=== PATIENT | female | born 1940 | race African-American/Black ===

== ENCOUNTER 2016-05-26 09:37 | Emergency (ER) | payer OTHER, MEDICAID ==
[2016-05-26 09:43] VITALS: BP 150/80; BMI 24.9
[2016-05-26] MEDS ORDERED: DECADRON INJ IM ONE (10:36)
--- NOTE | 2016-05-26 10:37 | DR.GENAD ---
HPI - PCP Primary Care Physician: Jalil RESTREPO - Complaint/Symptoms Chief Complaint:: PT C/O LT KNEE PAIN AND SWELLING. PT STATES SHE HAS ALWAYS HAD PROBLEMS WITH ARTHRITIS, BUT THIS AM SHE WOKE UP AND SHE IS HAVING TROUBLE MOVING IT AND AMBULATING. - Source History Provided: Patient - Mode of Arrival Mode of Arrival: Ambulatory - Timing Onset of Chief Complaint: 05/26/16 PMH - PMH Past Medical History: Yes Past Medical History: Anemia, Anxiety, Arthritis, Depression, Dyslipidemia, GERD , Hypertension, Kidney Stones Past Surgical History: Yes Surgical History: Cholecystectomy, Lithotripsy - Family History History of Family Medical Conditions: Yes Family Medical History: Diabetes Mellitus, Hypertension - Social History Does any household member use tobacco: No Alcohol Use: None Do you use any recreational Drugs:: No Lives With: Family Lives Where: Home - infectious screening In the last 2 months have you had wt loss of >10#?: NO Have you had fever, night sweats or hemotysis?: No Have you traveled outside the country in the last 6 months?: No Isolation: Standard PE - Vital Signs Vitals: Temperature 97.8 F Pulse Rate 75 Respiratory Rate 20 Blood Pressure 150/80 O2 Sat by Pulse Oximetry 97 - General Limitations: No Limitations General Appearance: Alert, In No Apparent Distress - Head Head Exam: Normal Inspection - Eyes Eye exam: Normal Appearance, PERRL, EOMI - ENT ENT Exam: Normal Exam External Ear Exam: Normal External Inspection TM/Canal Exam: Bilateral Normal Nose Exam: Normal Nose Exam Mouth Exam: Normal Inspection Throat Exam: Normal Inspection - Neck Neck Exam: Normal Inspection - Chest Chest Inspection: Normal Inspection - Respiratory Respiratory Exam: Normal Lung Sounds Bilat Respiratory Exam: Bilateral Clear to Auscultation - Cardiovascular Cardiovascular Exam: Regular Rate, Normal Rhythm - Abdominal Exam Abdominal Exam: Normal Inspection Abdominal Tenderness: negative: RUQ, RLQ, LUQ, LLQ, Epigastrium, Suprapubic, Diffuse, Mild, Moderate, Severe, Other - Extremities Extremities Exam: Normal Inspection, Joint Swelling (left knee medially, no warmth or erythema) - Back Back Exam: Normal Inspection - Neurologic Neurological Exam: Alert, Oriented X3, CN II-XII Intact - Skin Skin Exam: Warm, Dry, Intact Course - Reevaluation 1st: Unchanged - Diagnosis Discharge Problem: Arthritis - Discharge Plan Condition: Stable - Follow ups/Referrals Follow ups/Referrals: FOUZIA RESTREPO [Primary Care Provider] - 3 days - Instructions
[2016-05-26] MEDS ORDERED: DECADRON INJ ONE (10:39)
== END 2016-05-26 11:07 | disposition home or self-care (01) ==
LOC: ER 09:37
DX: M13.862 Other specified arthritis, left knee (principal)
CPT/HCPCS: 96372; 99282; J1100

== ENCOUNTER → 2016-06-19 | Outpatient (CLI) | payer OTHER, MEDICAID ==
[2016-05-26 09:43] VITALS: BP 150/80
== END ==
LOC: LAB 10:53
PROVIDERS: ATTEND Internal Medicine Hematology & Oncology
DX: D64.89 Other specified anemias (principal)
CPT/HCPCS: 82270

== ENCOUNTER 2016-06-21 10:33 | Emergency (ER) | payer OTHER, MEDICAID ==
[2016-06-21 10:37] VITALS: BP 177/90; BMI 24.9
--- NOTE | 2016-06-21 10:46 | DR.BITE ---
HPI - Time Seen Time seen: 10:38 - PCP Primary Care Physician: Deonte RESTREPO - Complaint/Symptoms Chief Complaint Doctor Comments: Patient was bitten (scratched) by a stray cat when attempting to pick the cat up. There is no pain at site and no erythema. Chief Complaint:: PT. GOT BIT BY A STRAY CAT [employer]. ONE PUNCTURE WOUND NOTED TO LEFT THUMB. PT. UNSURE OF IMMUNIZATION STATUS OF ANIMAL OR HERSELF. - Source History Provided: Patient - Mode of Arrival Mode of Arrival: Ambulatory - Timing Onset of Chief Complaint: 06/21/16 PMH - PMH Past Medical History: Yes Past Medical History: Anemia, Anxiety, Arthritis, Depression, Dyslipidemia, GERD , Hypertension, Kidney Stones Past Surgical History: Yes Surgical History: Cholecystectomy, Lithotripsy - Family History History of Family Medical Conditions: Yes Family Medical History: Diabetes Mellitus, Hypertension - Social History Does patient currently use any type of tobacco product: No Have you used tobacco products in the last 12 months: No Type of Tobacco Use: None Does any household member use tobacco: No Alcohol Use: None Do you use any recreational Drugs:: No Lives With: Family Lives Where: Home - infectious screening In the last 2 months have you had wt loss of >10#?: NO Have you had fever, night sweats or hemotysis?: No Have you traveled outside the country in the last 6 months?: No Isolation: Standard ROS - Review of Systems Constitutional: No Symptoms Reported Eyes: No Symptoms Reported ENTM: No Symptoms Reported Respiratoy: No Symptoms Reported Cardiovascular: No Symptoms Reported Gastrointestinal/Abdominal: No Symptoms Reported Genitourinary: No Symptoms Reported Neurological: No Symptoms Reported Musculoskeletal: No Symptoms Reported Integumentary: See HPI, Lesions (right thumb puncture) Hematologic/Lymphatic: No Symptoms Reported Endocrine: No Symptoms Reported Psychiatric: No Symptoms Reported All Other Systems: Reviewed and Negative PE - Vital Signs Vital Signs: Temp Pulse Resp BP Pulse Ox 06/21/16 10:34 97.7 F 82 16 177/90 100 05/26/16 09:40 150/80 - Constitutional Limitations: No Limitations General Appearance: Alert, In No Apparent Distress - Head Head Exam: Normal Inspection - Eyes Eye exam: Normal Appearance, PERRL, EOMI - ENT ENT Exam: Normal Exam - Neck Neck Exam: Normal Inspection, Full ROM - Chest Chest Inspection: Normal Inspection - Respiratory Respiratory Exam: Normal Lung Sounds Bilat Respiratory Exam: Bilateral Clear to Auscultation - Cardiovascular Cardiovascular Exam: Regular Rate, Normal Rhythm - Abdominal Exam Abdominal Exam: Normal Inspection, Normal Bowel Sounds Abdominal Tenderness: negative: RUQ, RLQ, LUQ, LLQ, Epigastrium, Suprapubic, Diffuse, Mild, Moderate, Severe, Other - Extremities Extremities Exam: Normal Inspection - Back Back Exam: Normal Inspection - Neurologic Neurological Exam: Alert, Oriented X3, CN II-XII Intact Cranial Nerve Exam: EOM Function (II, III, IV, ): Normal Cerebellar Function: Finger to Nose: Normal Cerebellar Function: Normal Gait - Psychiatric Psychiatric Exam: Normal Affect, Normal Mood - Skin Skin Exam: Warm, Dry. negative: Intact (puncture wound of right thumb) Type of Lesion: Bite/Sting (as stated) Distribution: RUE Description: negative: Fluctuant, Indurated Involving: Immediate area of bite Through to: Skin - Diagnosis Discharge Problem: Cat bite of thumb Qualifiers: Encounter type: initial encounter Laterality: right Qualified Code(s): S61.051A - Open bite of right thumb without damage to nail, initial encounter; W55.01XA - Bitten by cat, initial encounter - Discharge Plan Condition: Stable - Follow ups/Referrals Follow ups/Referrals: FOUZIA RESTREPO [Primary Care Provider] - 3 days - Instructions
[2016-06-21] MEDS ORDERED: HYDROGEN PEROXIDE 3% ONE (10:54)
== END 2016-06-21 11:00 | disposition home or self-care (01) ==
LOC: ER 10:39
DX: S61.051A Open bite of right thumb without damage to nail, initial encounter (principal); W55.01XA Bitten by cat, initial encounter
CPT/HCPCS: 99281; 99282

== ENCOUNTER → 2016-06-28 | Outpatient (CLI) | payer OTHER, MEDICAID ==
[2016-06-21 10:37] VITALS: BP 177/90
--- NOTE | 2016-06-29 09:42 | MG ---
HISTORY: SCREENING Comparison: March 19, 2014 and May 17, 2015 FINDINGS: Bilateral CC and MLO projections of the right and left breast were obtained. Scattered fibroglandul ar tissue is seen to be present without significant interval change. No suspicious architectural di stortion, mass or clustered microcalcifications can be observed to suggest malignancy. No skin thic kening or nipple retraction is appreciated. No pathological lymphadenopathy can be identified. Darren ign-appearing calcifications are noted within the right and left breast. IMPRESSION: NO RADIOGRAPHIC EVIDENCE OF MALIGNANCY. ACR CATEGORY 2 - benign findings. FOLLOW-UP EXAM 1 YEAR. Diagnostic CAD was utilized and reviewed. * 0 (ZERO) - ASSESSMENT INCOMPLETE; ADDITIONAL IMAGING IS NEEDED. * 1/1 (ONE) - NEGATIVE. * 2/II (TWO) - BENIGN FINDINGS. * 3/III (THREE) - PROBABLY BENIGN FINDING; SHORT INTERVAL FOLLOW-UP SUGGESTED. * 4/IV (FOUR) - SUSPICIOUS ABNORMALITY; BIOPSY SHOULD BE CONSIDERED. * 5/V (FIVE) - HIGHLY SUSPICIOUS OF MALIGNANCY; BIOPSY SHOULD BE PERFORMED. A NEGATIVE X-RAY REPORT SHOULD NOT DELAY BIOPSY IF A DOMINANT OR CLINICALLY SUSPICIOUS MASS IS PRESENT; 4 TO 8 PERCENT OF CANCERS ARE NOT IDENTIFIED BY X-RAY. A NEG ATIVE REPORT MAY REINFORCE THE CLINICAL IMPRESSION. ADENOSIS AND DENSE BREASTS MAY OBSCURE AN UNDER LYING NEOPLASM. Reported By:
== END ==
LOC: RAD 14:00
PROVIDERS: ATTEND Nurse Practitioner Family
DX: Z00.00 Encounter for general adult medical examination without abnormal findings (principal); Z12.31 Encounter for screening mammogram for malignant neoplasm of breast
CPT/HCPCS: 77067

== ENCOUNTER → 2016-10-10 | Outpatient (CLI) | payer OTHER, MEDICAID ==
[2016-10-10 11:47] LABS: BASOPHILS % (AUTO) 1.1 % (0.2-1.0); EOSINOPHILS # (AUTO) 0.2 x10^3/uL (0.0-0.2); EOSINOPHILS % (AUTO) 5.6 % (0.9-2.9); HEMATOCRIT 34.4 % (36.0-47.0); HEMOGLOBIN 11.1 g/dL (12.0-16.0); LYMPHOCYTES # (AUTO) 0.9 X10^3/uL (1.3-2.9); LYMPHOCYTES % (AUTO) 28.7 % (21.0-51.0); MEAN CORPUSCULAR HEMOGLOBIN 26.3 pg (27.0-34.0); MEAN CORPUSCULAR HGB CONC 32.1 g/dL (33.0-35.0); MEAN CORPUSCULAR VOLUME 81.8 fL (80.0-100.0); MEAN PLATELET VOLUME 8.1 fL (7.4-11.0); MONOCYTES # (AUTO) 0.2 x10^3/uL (0.3-0.8); MONOCYTES % (AUTO) 5.2 % (0.0-13.0); NEUTROPHILS # (AUTO) 1.9 x10^3/uL (2.2-4.8); NEUTROPHILS % (AUTO) 59.4 % (42.0-75.0); PLATELET COUNT 120 X10^3/uL (150.0-450.0); RED BLOOD COUNT 4.21 X10^6/uL (3.5-5.4); RED CELL DISTRIBUTION WIDTH 14.6 % (11.6-16.5); RETICULOCYTE % 1.09 % (0.8-2.2); WHITE BLOOD COUNT 3.2 X10^3/uL (3.6-10.0)
[2016-10-10 11:58] LABS: ALANINE AMINOTRANSFERASE 24 Units/L (12-78); ALBUMIN 3.9 g/dL (3.4-5.0); ALKALINE PHOSPHATASE 50 Units/L (46-116); ASPARTATE AMINO TRANSFERASE 24 Units/L (15-37); BLOOD UREA NITROGEN 17 mg/dL (7-18); CALCIUM 8.3 mg/dL (8.5-10.1); CARBON DIOXIDE 30.6 mmol/L (21-32); CHLORIDE 107 mmol/L (98-107); CREATININE 1.06 mg/dL (0.55-1.02); GLUCOSE 88 mg/dL (65-99); LACTATE DEHYDROGENASE 219 Units/L (81-234); SODIUM 143 mmol/L (136-145); eGFR BLACK RACES > 60 (>60); eGFR NON BLACK RACES 54 (>60)
== END | disposition home or self-care (01) | DRG 812 ==
LOC: LAB 11:02
PROVIDERS: ATTEND Internal Medicine Hematology & Oncology
DX: D64.89 Other specified anemias (principal); D69.49 Other primary thrombocytopenia
CPT/HCPCS: 36415; 80053; 83010; 83615; 85025; 85045

== ENCOUNTER → 2016-10-25 | Outpatient (CLI) | payer OTHER, MEDICAID ==
[2016-10-25 10:41] LABS: CHOL/HDL RATIO 2.6 (0.0-5.0); CHOLESTEROL 162 mg/dL (0-200); HDL CHOLESTEROL 63 mg/dL (40-60); TRIGLYCERIDES 87 mg/dL (0-150)
--- NOTE | 2016-10-25 10:42 | RAD ---
HISTORY: Low back pain Study: Lumbar spine five views Comparison: None Findings: There is mild anterolisthesis L3 on L4 secondary to facet degenerative joint disease and degenerativ e disc disease at that level. Degenerative disc disease and facet degenerative joint disease is pres ent also at L4-5. The alignment is otherwise normal. The vertebral bodies are of average height. The remainder the disc spaces are preserved. No spondylolysis is identified. The pedicles are intact. T he SI joints are normal. IMPRESSION: Mild anterolisthesis L3 on L4 secondary to degenerative disc and facet degenerative joint disease at that level. Degenerative disc disease also present at L4-5 Facet degenerative joint disease L4-5, L5-S1 bilaterally. Reported By:
--- NOTE | 2016-10-25 10:43 | RAD ---
HISTORY: Bilateral hip pain, nontraumatic Study: Bilateral hips two views each, AP pelvis Comparison: October 30, 2015 Findings: The pelvic bones and SI joints are intact. There is mild osteitis pubis present. The hip joints are preserved. There is mild degenerative joint space narrowing in the hips bilaterally. No joint erosio n, joint effusion, fracture, lytic, or blastic lesion is identified. IMPRESSION: Mild degenerative joint space narrowing in the hips bilaterally Reported By:
== END ==
LOC: LAB 09:58
PROVIDERS: ATTEND Nurse Practitioner Family
DX: M06.09 Rheumatoid arthritis without rheumatoid factor, multiple sites (principal); E78.4 Other hyperlipidemia; I48.91 Unspecified atrial fibrillation; M81.0 Age-related osteoporosis without current pathological fracture; M54.5 Low back pain; M25.551 Pain in right hip; M25.552 Pain in left hip
CPT/HCPCS: 36415; 72110; 73521; 80061; 82306; 82746; 85610; 85652; 86140

== ENCOUNTER 2016-11-01 10:35 | Emergency (ER) | payer MEDICAID, OTHER ==
--- NOTE | 2016-11-01 13:27 | RAD ---
HISTORY: Cough Study: AP portable chest Comparison: May 01, 2015 Findings: The trachea is midline. The cardiac silhouette is enlarged. No congestive heart failure is noted.. The lungs are clear without focal infiltrate or effusion. The bony thorax is unremarkable with the e xception of chronic rotator cuff disease on the right.. There is a pacemaker present on the left obs curing a portion of the left upper lobe. IMPRESSION: 1. Cardiomegaly without congestive heart failure 2. Lungs clear Reported By:
--- NOTE | 2016-11-01 13:40 | DR.GENAD ---
HPI - HPI Comment HPI Comment: HISTORY BELOW. - Complaint/Symptoms Chief Complaint Doctors Comments: PATIENT HAVING SINUS AND CHEST CONGESTION THAT IS WORSE. PATIENT HAVE PERSISTENT FOR OVER ONE MONTH. WORSE TODAY. Chief Complaint:: BODY ACHES, COLD AND CONGESTION. ALSO COUGHING. - Nurses notes reviewed Nurses Notes Review: Yes - Source History Provided: Patient - Mode of Arrival Mode of Arrival: Ambulatory - Timing Came on: Gradually - Duration Duration: Constant Duration: Days - Severity Severity: Moderate PMH - PMH Past Medical History: Anemia, Anxiety, Arthritis, Depression, Dyslipidemia, GERD , Hypertension, Kidney Stones Past Surgical History: Yes Surgical History: Cholecystectomy, Lithotripsy - Family History Family Medical History: Diabetes Mellitus, Hypertension - Social History Do you use any recreational Drugs:: No ROS - Review of Systems Constitutional: Weakness, Fatigue. negative: Chills, Fever Eyes: No Symptoms Reported. negative: Eye Pain, Discharge ENTM: Nose Congestion. negative: Ear Discharge, Nose Discharge, Throat Pain Respiratoy: Non-Productive Cough, Short of Breath. negative: Wheezing Cardiovascular: Chest Pain Gastrointestinal/Abdominal: No Symptoms Reported Genitourinary: No Symptoms Reported Neurological: Headache. negative: Weakness, Dizziness Musculoskeletal: Muscle Pain Integumentary: No Symptoms Reported Hematologic/Lymphatic: No Symptoms Reported Endocrine: No Symptoms Reported All Other Systems: Reviewed and Negative PE - Vital Signs Vitals: Temperature 98.1 F Pulse Rate 84 Respiratory Rate 20 Blood Pressure 172/86 O2 Sat by Pulse Oximetry 100 - General Limitations: No Limitations General Appearance: Alert - Head Head Exam: Normal Inspection - Eyes Eye exam: Normal Appearance - ENT ENT Exam: Normal External Ear Exam External Ear Exam: Normal External Inspection TM/Canal Exam: Bilateral Bulging Nose Exam: Normal Nose Exam Mouth Exam: Normal Inspection Throat Exam: Normal Inspection - Neck Neck Exam: Normal Inspection - Chest Chest Inspection: Symmetric Chest Wall Rise - Respiratory Respiratory Exam: Normal Lung Sounds Bilat Respiratory Exam: Bilateral Rhonchi, Lower Rhonchi - Cardiovascular Cardiovascular Exam: Regular Rate, Normal Rhythm, Normal Heart Sounds - Abdominal Exam Abdominal Exam: Normal Bowel Sounds, Soft. negative: Tenderness - Extremities Extremities Exam: Normal Inspection - Back Back Exam: Normal Inspection - Neurologic Neurological Exam: Alert, Oriented X3 - Psychiatric Psychiatric Exam: Normal Affect, Normal Mood - Skin Skin Exam: Normal Color MDM - Additional Information Additional Information Obtained From: Family - Differential Diagnosis Differential Diagnosis: PNEUMONIA, SINUSITIS, BRONCHITIS Course - Treatment Treatment: SEE ORDERS. - Education/Counseling Education/Counseling: Patient, Family, Education Educated On: Treatment, Diagnosis, Needs for Follow Up ROR - Labs Reviewed Laboratory Results Reviewed?: Yes Result Diagrams: 11/01/16 12:50 11/01/16 12:50 Laboratory: WBC 3.8 X10^3/uL (3.6-10.0) 11/01/16 12:50 RBC 4.14 X10^6/uL (3.5-5.4) 11/01/16 12:50 Hgb 10.9 g/dL (12.0-16.0) L 11/01/16 12:50 Hct 33.6 % (36.0-47.0) L 11/01/16 12:50 MCV 81.2 fL (80.0-100.0) 11/01/16 12:50 MCH 26.3 pg (27.0-34.0) L 11/01/16 12:50 MCHC 32.4 g/dL (33.0-35.0) L 11/01/16 12:50 RDW 14.8 % (11.6-16.5) 11/01/16 12:50 Plt Count 114 X10^3/uL (150.0-450.0) L 11/01/16 12:50 MPV 7.7 fL (7.4-11.0) 11/01/16 12:50 Neut % 62.8 % (42.0-75.0) 11/01/16 12:50 Lymph % 24.0 % (21.0-51.0) 11/01/16 12:50 Coal % 6.2 % (0.0-13.0) 11/01/16 12:50 Eos % 6.3 % (0.9-2.9) H 11/01/16 12:50 Baso % 0.7 % (0.2-1.0) 11/01/16 12:50 Neut # 2.4 x10^3/uL (2.2-4.8) 11/01/16 12:50 Lymph # 0.9 X10^3/uL (1.3-2.9) L 11/01/16 12:50 Coal # 0.2 x10^3/uL (0.3-0.8) L 11/01/16 12:50 Eos # 0.2 x10^3/uL (0.0-0.2) 11/01/16 12:50 Baso # 0.0 X10^3/uL (0.0-0.1) 11/01/16 12:50 Absolute Nucleated RBC 0.0 /100WBC 11/01/16 12:50 Sodium 143 mmol/L (136-145) 11/01/16 12:50 Corrected Sodium TNP 11/01/16 12:50 Potassium 3.8 mmol/L (3.5-5.1) 11/01/16 12:50 Chloride 107 mmol/L (98-107) 11/01/16 12:50 Carbon Dioxide 32.2 mmol/L (21-32) H 11/01/16 12:50 BUN 84 mg/dL (7-18) H 11/01/16 12:50 Creatinine 1.03 mg/dL (0.55-1.02) H 11/01/16 12:50 Est GFR (MDRD) Af Amer > 60 (>60) 11/01/16 12:50 Est GFR (MDRD) Non-Af 55 (>60) L 11/01/16 12:50 Glucose 84 mg/dL (65-99) 11/01/16 12:50 Calcium 8.7 mg/dL (8.5-10.1) 11/01/16 12:50 Corrected Calcium TNP 11/01/16 12:50 Total Bilirubin 0.60 mg/dL (0.2-1.0) 11/01/16 12:50 AST 23 Units/L (15-37) 11/01/16 12:50 ALT 24 Units/L (12-78) 11/01/16 12:50 Alkaline Phosphatase 46 Units/L (46-116) 11/01/16 12:50 Creatine Kinase 116 Units/L (26-192) 11/01/16 12:50 CK-MB (CK-2) < 1.0 ng/mL (0-4.0) 11/01/16 12:50 CK/CKMB % Calc 0.9 % (<4) 11/01/16 12:50 Troponin I < 0.02 ng/mL (0-1.5) 11/01/16 12:50 Total Protein 7.4 g/dL (6.4-8.2) 11/01/16 12:50 Albumin 3.5 g/dL (3.4-5.0) 11/01/16 12:50 Globulin 3.9 g/dL (2.5-4.5) 11/01/16 12:50 Albumin/Globulin Ratio 0.9 Ratio (1.1-2.1) L 11/01/16 12:50 - XRAY XRAY Interpreted by: Radiologist XRAY Findings: REPORT DISCUSS WITH PATIENT. - Diagnosis Discharge Problem: Acute sinusitis, Acute bronchitis - Discharge Plan Disposition: HOME, SELF-CARE Condition: Stable Prescriptions: Amoxicillin & Pot Clavulanate [AUGMENTIN TAB 875 mg/125 mg *] 1 tab PO BID #20 tab Benzonatate [TESSALON PERLES *] 200 mg PO TID PRN #30 cap PRN Reason: Cough Cetirizine HCl [Zyrtec Tab 10 mg] 10 mg PO DAILY #10 tab - Follow ups/Referrals Follow ups/Referrals: Yas Ahuja [Primary Care Provider] - 3 days - Instructions Instructions: Sinusitis, Adult, [id number], Acute Bronchitis, [id number] Additional Instructions: RETURN TO ED IF WORSE.
[2016-11-01 13:50] VITALS: BP 172/86; BMI 26.0
[2016-11-01 14:09] LABS: CKMB % 0.9 % (<4); CREATINE KINASE 116 Units/L (26-192); CREATINE KINASE MB < 1.0 ng/mL (0-4.0); TROPONIN I < 0.02 ng/mL (0-1.5)
[2016-11-01 14:32] LABS: BLOOD UREA NITROGEN 84 mg/dL (7-18); CALCIUM 8.7 mg/dL (8.5-10.1); CARBON DIOXIDE 32.2 mmol/L (21-32); CHLORIDE 107 mmol/L (98-107); CREATININE 1.03 mg/dL (0.55-1.02); GLUCOSE 84 mg/dL (65-99); SODIUM 143 mmol/L (136-145); eGFR BLACK RACES > 60 (>60); eGFR NON BLACK RACES 55 (>60)
[2016-11-01 14:33] LABS: ALANINE AMINOTRANSFERASE 24 Units/L (12-78); ALBUMIN 3.5 g/dL (3.4-5.0); ALKALINE PHOSPHATASE 46 Units/L (46-116); ASPARTATE AMINO TRANSFERASE 23 Units/L (15-37); TOTAL PROTEIN 7.4 g/dL (6.4-8.2)
[2016-11-01 14:34] LABS: HEMATOCRIT 33.6 % (36.0-47.0); HEMOGLOBIN 10.9 g/dL (12.0-16.0); MEAN CORPUSCULAR VOLUME 81.2 fL (80.0-100.0); RED BLOOD COUNT 4.14 X10^6/uL (3.5-5.4); WHITE BLOOD COUNT 3.8 X10^3/uL (3.6-10.0)
[2016-11-01 14:35] LABS: BASOPHILS % (AUTO) 0.7 % (0.2-1.0); EOSINOPHILS # (AUTO) 0.2 x10^3/uL (0.0-0.2); EOSINOPHILS % (AUTO) 6.3 % (0.9-2.9); LYMPHOCYTES # (AUTO) 0.9 X10^3/uL (1.3-2.9); MEAN CORPUSCULAR HEMOGLOBIN 26.3 pg (27.0-34.0); MEAN CORPUSCULAR HGB CONC 32.4 g/dL (33.0-35.0); MEAN PLATELET VOLUME 7.7 fL (7.4-11.0); MONOCYTES # (AUTO) 0.2 x10^3/uL (0.3-0.8); MONOCYTES % (AUTO) 6.2 % (0.0-13.0); NEUTROPHILS # (AUTO) 2.4 x10^3/uL (2.2-4.8); NEUTROPHILS % (AUTO) 62.8 % (42.0-75.0); PLATELET COUNT 114 X10^3/uL (150.0-450.0); RED CELL DISTRIBUTION WIDTH 14.8 % (11.6-16.5)
== END 2016-11-01 14:00 | disposition home or self-care (01) ==
LOC: ER 10:48
DX: J20.9 Acute bronchitis, unspecified (principal); J01.80 Other acute sinusitis
CPT/HCPCS: 36415; 71010; 80053; 82550; 82553; 84484; 85025; 99282; 99283

== ENCOUNTER → 2017-01-10 | Outpatient (CLI) | payer OTHER, MEDICAID ==
[2017-01-10 11:07] LABS: BASOPHILS % (AUTO) 1.1 % (0.2-1.0); EOSINOPHILS # (AUTO) 0.3 x10^3/uL (0.0-0.2); EOSINOPHILS % (AUTO) 8.6 % (0.9-2.9); HEMATOCRIT 33.8 % (36.0-47.0); HEMOGLOBIN 10.9 g/dL (12.0-16.0); MEAN CORPUSCULAR HEMOGLOBIN 26.4 pg (27.0-34.0); MEAN CORPUSCULAR HGB CONC 32.2 g/dL (33.0-35.0); MEAN CORPUSCULAR VOLUME 81.8 fL (80.0-100.0); MEAN PLATELET VOLUME 7.9 fL (7.4-11.0); MONOCYTES # (AUTO) 0.2 x10^3/uL (0.3-0.8); MONOCYTES % (AUTO) 5.5 % (0.0-13.0); NEUTROPHILS # (AUTO) 1.9 x10^3/uL (2.2-4.8); NEUTROPHILS % (AUTO) 56.8 % (42.0-75.0); PLATELET COUNT 126 X10^3/uL (150.0-450.0); RED BLOOD COUNT 4.13 X10^6/uL (3.5-5.4); RED CELL DISTRIBUTION WIDTH 14.7 % (11.6-16.5); WHITE BLOOD COUNT 3.4 X10^3/uL (3.6-10.0)
[2017-01-10 11:09] LABS: ALANINE AMINOTRANSFERASE 19 Units/L (12-78); ALBUMIN 3.8 g/dL (3.4-5.0); ALKALINE PHOSPHATASE 50 Units/L (46-116); ASPARTATE AMINO TRANSFERASE 23 Units/L (15-37); BLOOD UREA NITROGEN 19 mg/dL (7-18); CARBON DIOXIDE 29.8 mmol/L (21-32); CHLORIDE 105 mmol/L (98-107); CREATININE 1.26 mg/dL (0.55-1.02); SODIUM 140 mmol/L (136-145); TOTAL PROTEIN 7.6 g/dL (6.4-8.2); eGFR BLACK RACES 53 (>60); eGFR NON BLACK RACES 44 (>60)
[2017-01-10 11:52] LABS: ERYTHROCYTE SEDIMENTATION RATE 21 MM/HOUR (0-20)
== END ==
LOC: LAB 10:22
PROVIDERS: ATTEND Nurse Practitioner Family
DX: M06.09 Rheumatoid arthritis without rheumatoid factor, multiple sites (principal); Z79.899 Other long term (current) drug therapy; E55.9 Vitamin D deficiency, unspecified; Z79.01 Long term (current) use of anticoagulants
CPT/HCPCS: 36415; 80053; 82306; 82746; 85025; 85610; 85652; 86140

== ENCOUNTER 2017-01-21 18:38 | Emergency (ER) | payer OTHER, MEDICAID ==
[2017-01-21 19:01] VITALS: BMI 26.0
[2017-01-21 19:03] LABS: BILIRUBIN,URINE NEGATIVE (NEGATIVE); BLOOD/HEMOGLOBIN,URINE 2+ (NEGATIVE); GLUCOSE, URINE NEGATIVE (NEGATIVE); KETONES,URINE NEGATIVE (NEGATIVE); LEUKOCYTE ESTERASE ,URINE 3+ (NEGATIVE); NITRITES,URINE NEGATIVE (NEGATIVE); PROTEIN,URINE 1+ (NEGATIVE); UROBILINOGEN,URINE NORMAL (NORMAL)
[2017-01-21 19:12] LABS: APPEARANCE,URINE SLIGHTLY HAZY (CLEAR); COLOR,URINE YELLOW (YELLOW)
[2017-01-21 19:42] LABS: AMORPHOUS SEDIMENT,UR 1+ /HPF (NEGATIVE); BACTERIA,URINE 1+ /HPF (NEGATIVE); RBC,URINE RARE /HPF (NEGATIVE); SQUAMOUS EPITHELIAL CELL,UR MANY /HPF (NEGATIVE)
[2017-01-21 19:43] LABS: MUCUS,URINE MODERATE /HPF (NEGATIVE)
--- NOTE | 2017-01-21 19:47 | DR.GENAD ---
HPI - PCP Primary Care Physician: zonia marrero - Complaint/Symptoms Chief Complaint Doctors Comments: Patient presents with complaint of back pain. She has arthritis, has been given hydrocodone 7.5mg #60 for the month and does not have any. She also trakes tramadol. Chief Complaint:: pt c/o lower flank pain bilat - Source History Provided: Patient - Mode of Arrival Mode of Arrival: EMS - Timing Onset of Chief Complaint: 01/21/17 PMH - PMH Past Medical History: Yes Past Medical History: Anemia, Anxiety, Arthritis, Depression, Dyslipidemia, GERD , Hypertension, Kidney Stones Past Medical History Comment: a-fib Past Surgical History: Yes Surgical History: Cholecystectomy, Lithotripsy Past Surgical History Comment: pacemaker - Family History History of Family Medical Conditions: Yes Family Medical History: Diabetes Mellitus, Hypertension - Social History Does any household member use tobacco: No Alcohol Use: None Do you use any recreational Drugs:: No Lives With: Family Lives Where: Home - infectious screening In the last 2 months have you had wt loss of >10#?: NO Have you had fever, night sweats or hemotysis?: No Have you traveled outside the country in the last 6 months?: No Isolation: Standard ROS - Review of Systems Eyes: No Symptoms Reported ENTM: No Symptoms Reported Respiratoy: No Symptoms Reported Cardiovascular: No Symptoms Reported Gastrointestinal/Abdominal: No Symptoms Reported Genitourinary: No Symptoms Reported Neurological: No Symptoms Reported Musculoskeletal: Back Pain Integumentary: No Symptoms Reported Hematologic/Lymphatic: No Symptoms Reported Endocrine: No Symptoms Reported Psychiatric: No Symptoms Reported All Other Systems: Reviewed and Negative PE - Vital Signs Vitals: Temperature 99.6 F Pulse Rate 78 Respiratory Rate 18 Blood Pressure 172/86 O2 Sat by Pulse Oximetry 97 - General General Appearance: Alert, In No Apparent Distress - Head Head Exam: Normal Inspection, Atraumatic - Eyes Eye exam: Normal Appearance, PERRL - ENT ENT Exam: Normal Exam External Ear Exam: Normal External Inspection TM/Canal Exam: Bilateral Normal Nose Exam: Normal Nose Exam Mouth Exam: Normal Inspection Throat Exam: Normal Inspection - Neck Neck Exam: Normal Inspection - Chest Chest Inspection: Normal Inspection - Respiratory Respiratory Exam: Normal Lung Sounds Bilat Respiratory Exam: Bilateral Clear to Auscultation - Cardiovascular Cardiovascular Exam: Regular Rate, Normal Rhythm - Abdominal Exam Abdominal Exam: Normal Inspection Abdominal Tenderness: negative: RUQ, RLQ, LUQ, LLQ, Epigastrium, Suprapubic, Diffuse, Mild, Moderate, Severe, Other - Extremities Extremities Exam: Normal Inspection, Full ROM - Back Back Exam: Normal Inspection - Neurologic Neurological Exam: Alert, Oriented X3, CN II-XII Intact - Psychiatric Psychiatric Exam: Normal Affect, Normal Mood - Skin Skin Exam: Warm, Dry, Intact ROR - Labs Reviewed Laboratory: Specimen Type Clean catch urine 01/21/17 18:53 Urine Color Yellow (YELLOW) 01/21/17 18:53 Urine Appearance Slightly hazy (CLEAR) 01/21/17 18:53 Urine pH 5.0 (5.0 - 8.0) 01/21/17 18:53 Ur Specific [place] 1.015 (1.000-1.030) 01/21/17 18:53 Urine Protein 1+ (NEGATIVE) 01/21/17 18:53 Urine Glucose (UA) Negative (NEGATIVE) 01/21/17 18:53 Urine Ketones Negative (NEGATIVE) 01/21/17 18:53 Urine Occult Blood 2+ (NEGATIVE) 01/21/17 18:53 Urine Nitrite Negative (NEGATIVE) 01/21/17 18:53 Urine Bilirubin Negative (NEGATIVE) 01/21/17 18:53 Urine Urobilinogen Normal (NORMAL) 01/21/17 18:53 Ur Leukocyte Esterase 3+ (NEGATIVE) 01/21/17 18:53 Urine RBC Rare /HPF (NEGATIVE) 01/21/17 18:53 Urine WBC 02 - 05 /HPF (NEGATIVE) 01/21/17 18:53 Ur Squamous Epith Cells Many /HPF (NEGATIVE) 01/21/17 18:53 Amorphous Sediment 1+ /HPF (NEGATIVE) 01/21/17 18:53 Urine Bacteria 1+ /HPF (NEGATIVE) 01/21/17 18:53 Urine Mucus Moderate /HPF (NEGATIVE) 01/21/17 18:53 Ur Culture Indicated? No/not indicated 01/21/17 18:53 - Diagnosis Discharge Problem: Chronic back pain Qualifiers: Back pain location: low back pain Back pain laterality: midline Sciatica presence: unspecified whether sciatica present Qualified Code(s): M54.5 - Low back pain; G89.29 - Other chronic pain; G89.29 - Other chronic pain Osteoarthritis Qualifiers: Osteoarthritis location: multiple joints Osteoarthritis type: unspecified Qualified Code(s): M15.9 - Polyosteoarthritis, unspecified - Discharge Plan Condition: Stable - Follow ups/Referrals Follow ups/Referrals: ASHELY MARRERO [Primary Care Provider] - 3 days - Instructions
[2017-01-21] MEDS ORDERED: TORADOL 60 MG VIAL IM ONE (20:02)
[2017-01-21] MEDS ORDERED: TORADOL 60 MG VIAL ONE (20:02)
[2017-01-21 21:36] VITALS: BP 142/62
== END 2017-01-21 20:52 | disposition home or self-care (01) ==
LOC: ER 18:38
DX: M54.5 Low back pain (principal); G89.29 Other chronic pain; M15.9 Polyosteoarthritis, unspecified
CPT/HCPCS: 81001; 96372; 99282; J1885

== ENCOUNTER → 2017-02-23 | Outpatient (CLI) | payer OTHER, MEDICAID ==
[2017-02-23 09:41] LABS: ALANINE AMINOTRANSFERASE 22 Units/L (12-78); ALBUMIN 3.7 g/dL (3.4-5.0); ALKALINE PHOSPHATASE 51 Units/L (46-116); ASPARTATE AMINO TRANSFERASE 21 Units/L (15-37); BLOOD UREA NITROGEN 18 mg/dL (7-18); CALCIUM 8.8 mg/dL (8.5-10.1); CARBON DIOXIDE 30.7 mmol/L (21-32); CHLORIDE 106 mmol/L (98-107); CREATININE 1.05 mg/dL (0.55-1.02); LACTATE DEHYDROGENASE 196 Units/L (81-234); SODIUM 143 mmol/L (136-145); TOTAL PROTEIN 7.3 g/dL (6.4-8.2); eGFR BLACK RACES > 60 (>60); eGFR NON BLACK RACES 54 (>60)
[2017-02-23 09:45] LABS: EOSINOPHILS # (AUTO) 0.2 x10^3/uL (0.0-0.2); EOSINOPHILS % (AUTO) 6.3 % (0.9-2.9); HEMOGLOBIN 10.4 g/dL (12.0-16.0); LYMPHOCYTES # (AUTO) 0.8 X10^3/uL (1.3-2.9); LYMPHOCYTES % (AUTO) 25.3 % (21.0-51.0); MEAN CORPUSCULAR HEMOGLOBIN 26.3 pg (27.0-34.0); MEAN CORPUSCULAR HGB CONC 32.3 g/dL (33.0-35.0); MEAN CORPUSCULAR VOLUME 81.2 fL (80.0-100.0); MEAN PLATELET VOLUME 8.1 fL (7.4-11.0); MONOCYTES # (AUTO) 0.2 x10^3/uL (0.3-0.8); MONOCYTES % (AUTO) 5.8 % (0.0-13.0); NEUTROPHILS # (AUTO) 1.9 x10^3/uL (2.2-4.8); NEUTROPHILS % (AUTO) 61.6 % (42.0-75.0); PLATELET COUNT 133 X10^3/uL (150.0-450.0); RED BLOOD COUNT 3.94 X10^6/uL (3.5-5.4); RED CELL DISTRIBUTION WIDTH 14.5 % (11.6-16.5); RETICULOCYTE % 1.49 % (0.8-2.2); WHITE BLOOD COUNT 3.2 X10^3/uL (3.6-10.0)
== END ==
LOC: LAB 09:01
PROVIDERS: ATTEND Internal Medicine Hematology & Oncology
DX: D64.9 Anemia, unspecified (principal); D69.6 Thrombocytopenia, unspecified
CPT/HCPCS: 36415; 80053; 83010; 83615; 85025; 85045

== ENCOUNTER → 2017-02-27 | Outpatient (CLI) | payer OTHER, MEDICAID | LOC: LAB 15:30 | PROVIDERS: ATTEND Nurse Practitioner Family | DX: Z51.81 Encounter for therapeutic drug level monitoring (principal) | CPT/HCPCS: 36415; 85610 ==

== ENCOUNTER 2017-03-30 14:13 | Inpatient (IN) | payer OTHER, MEDICAID ==
[2017-03-30] MEDS ORDERED: AQUA-MEPHYTON ADULT INJ SC ONE (15:12)
[2017-03-30] MEDS ORDERED: AQUA-MEPHYTON ADULT INJ ONE (15:21)
[2017-03-30 15:52] LABS: BASOPHILS % (AUTO) 0.9 % (0.2-1.0); EOSINOPHILS # (AUTO) 0.2 x10^3/uL (0.0-0.2); EOSINOPHILS % (AUTO) 5.4 % (0.9-2.9); HEMATOCRIT 31.4 % (36.0-47.0); HEMOGLOBIN 10.3 g/dL (12.0-16.0); LYMPHOCYTES # (AUTO) 0.9 X10^3/uL (1.3-2.9); LYMPHOCYTES % (AUTO) 24.8 % (21.0-51.0); MEAN CORPUSCULAR HEMOGLOBIN 26.7 pg (27.0-34.0); MEAN CORPUSCULAR HGB CONC 32.8 g/dL (33.0-35.0); MEAN CORPUSCULAR VOLUME 81.4 fL (80.0-100.0); MEAN PLATELET VOLUME 8.1 fL (7.4-11.0); MONOCYTES # (AUTO) 0.2 x10^3/uL (0.3-0.8); MONOCYTES % (AUTO) 6.5 % (0.0-13.0); NEUTROPHILS # (AUTO) 2.4 x10^3/uL (2.2-4.8); NEUTROPHILS % (AUTO) 62.4 % (42.0-75.0); PLATELET COUNT 121 X10^3/uL (150.0-450.0); RED BLOOD COUNT 3.86 X10^6/uL (3.5-5.4); RED CELL DISTRIBUTION WIDTH 15.2 % (11.6-16.5); WHITE BLOOD COUNT 3.8 X10^3/uL (3.6-10.0)
[2017-03-30 15:59] LABS: ALANINE AMINOTRANSFERASE 31 Units/L (12-78); ALBUMIN 3.6 g/dL (3.4-5.0); ALKALINE PHOSPHATASE 47 Units/L (46-116); ASPARTATE AMINO TRANSFERASE 25 Units/L (15-37); BLOOD UREA NITROGEN 22 mg/dL (7-18); CALCIUM 9.3 mg/dL (8.5-10.1); CARBON DIOXIDE 28.9 mmol/L (21-32); CHLORIDE 107 mmol/L (98-107); SODIUM 141 mmol/L (136-145); TOTAL PROTEIN 7.4 g/dL (6.4-8.2); eGFR BLACK RACES > 60 (>60); eGFR NON BLACK RACES 51 (>60)
[2017-03-30] MEDS: NS 1000 ML 1,000 ML IV SCH (16:00)
[2017-03-30 16:14] VITALS: BMI 25.4
[2017-03-30] MEDS ORDERED: TESSALON PERLES PO PRN (17:41)
[2017-03-30] MEDS ORDERED: ULTRAM PO PRN (18:52)
[2017-03-30] MEDS: NORCO 10/325 TAB PO PRN (20:46)
[2017-03-30] MEDS: PLAQUENIL PO SCH (20:46)
[2017-03-30] MEDS: ZOCOR TAB 40 MG PO SCH ×2 (20:47→20:48)
[2017-03-31] MEDS: NS 1000 ML 1,000 ML IV SCH ×2 (04:46→18:52)
[2017-03-31 06:01] LABS: BASOPHILS % (AUTO) 0.9 % (0.2-1.0); EOSINOPHILS # (AUTO) 0.2 x10^3/uL (0.0-0.2); EOSINOPHILS % (AUTO) 5.8 % (0.9-2.9); HEMATOCRIT 27.5 % (36.0-47.0); HEMOGLOBIN 8.8 g/dL (12.0-16.0); LYMPHOCYTES # (AUTO) 0.9 X10^3/uL (1.3-2.9); LYMPHOCYTES % (AUTO) 27.7 % (21.0-51.0); MEAN CORPUSCULAR HEMOGLOBIN 26.4 pg (27.0-34.0); MEAN CORPUSCULAR HGB CONC 32.2 g/dL (33.0-35.0); MEAN CORPUSCULAR VOLUME 82.2 fL (80.0-100.0); MONOCYTES # (AUTO) 0.2 x10^3/uL (0.3-0.8); MONOCYTES % (AUTO) 6.3 % (0.0-13.0); NEUTROPHILS # (AUTO) 1.9 x10^3/uL (2.2-4.8); NEUTROPHILS % (AUTO) 59.3 % (42.0-75.0); PLATELET COUNT 97 X10^3/uL (150.0-450.0); RED BLOOD COUNT 3.34 X10^6/uL (3.5-5.4); RED CELL DISTRIBUTION WIDTH 15.1 % (11.6-16.5); WHITE BLOOD COUNT 3.1 X10^3/uL (3.6-10.0)
[2017-03-31 06:13] LABS: ALANINE AMINOTRANSFERASE 24 Units/L (12-78); ALBUMIN 2.8 g/dL (3.4-5.0); ALKALINE PHOSPHATASE 39 Units/L (46-116); ASPARTATE AMINO TRANSFERASE 20 Units/L (15-37); BLOOD UREA NITROGEN 18 mg/dL (7-18); CALCIUM 8.2 mg/dL (8.5-10.1); CHLORIDE 109 mmol/L (98-107); COR CA(FOR HYPOALB) 9.2 mg/dL (8.5-10.1); COR NA(FOR HYPERGLY) 144 mmol/L (136-145); CREATININE 1.04 mg/dL (0.55-1.02); SODIUM 143 mmol/L (136-145); eGFR BLACK RACES > 60 (>60); eGFR NON BLACK RACES 55 (>60)
[2017-03-31] MEDS ORDERED: ZOLOFT PO ONE (08:39)
[2017-03-31] MEDS: PLAQUENIL PO SCH ×2 (09:11→21:14)
[2017-03-31] MEDS: COZAAR PO SCH (09:12)
[2017-03-31] MEDS: FOLIC ACID TAB 1 MG PO SCH (09:13)
[2017-03-31] MEDS: ZEBETA TAB 5 MG PO SCH (09:13)
[2017-03-31] MEDS: CITRACAL + VITAMIN D PO SCH (09:14)
[2017-03-31] MEDS: ZOLOFT PO SCH (09:14)
[2017-03-31] MEDS: AQUA-MEPHYTON ADULT INJ SC SCH ×2 (13:28→21:13)
[2017-03-31] MEDS: ZOCOR TAB 40 MG PO SCH (21:14)
[2017-03-31] MEDS: NEURONTIN CAP 100 MG PO SCH (21:14)
[2017-04-01] MEDS: NS 1000 ML 1,000 ML IV SCH ×3 (05:21→20:03)
[2017-04-01 06:13] LABS: BASOPHILS % (AUTO) 0.9 % (0.2-1.0); EOSINOPHILS # (AUTO) 0.2 x10^3/uL (0.0-0.2); EOSINOPHILS % (AUTO) 5.9 % (0.9-2.9); HEMATOCRIT 26.2 % (36.0-47.0); HEMOGLOBIN 8.5 g/dL (12.0-16.0); LYMPHOCYTES # (AUTO) 0.8 X10^3/uL (1.3-2.9); LYMPHOCYTES % (AUTO) 20.9 % (21.0-51.0); MEAN CORPUSCULAR HEMOGLOBIN 26.7 pg (27.0-34.0); MEAN CORPUSCULAR HGB CONC 32.4 g/dL (33.0-35.0); MEAN CORPUSCULAR VOLUME 82.3 fL (80.0-100.0); MEAN PLATELET VOLUME 8.3 fL (7.4-11.0); MONOCYTES # (AUTO) 0.2 x10^3/uL (0.3-0.8); MONOCYTES % (AUTO) 6.7 % (0.0-13.0); NEUTROPHILS # (AUTO) 2.4 x10^3/uL (2.2-4.8); NEUTROPHILS % (AUTO) 65.6 % (42.0-75.0); PLATELET COUNT 101 X10^3/uL (150.0-450.0); RED BLOOD COUNT 3.19 X10^6/uL (3.5-5.4); RED CELL DISTRIBUTION WIDTH 14.9 % (11.6-16.5); WHITE BLOOD COUNT 3.6 X10^3/uL (3.6-10.0)
[2017-04-01 07:18] LABS: ALANINE AMINOTRANSFERASE 20 Units/L (12-78); ALBUMIN 2.6 g/dL (3.4-5.0); ALKALINE PHOSPHATASE 47 Units/L (46-116); ASPARTATE AMINO TRANSFERASE 18 Units/L (15-37); BLOOD UREA NITROGEN 14 mg/dL (7-18); CALCIUM 7.9 mg/dL (8.5-10.1); CHLORIDE 111 mmol/L (98-107); COR NA(FOR HYPERGLY) 144 mmol/L (136-145); CREATININE 0.95 mg/dL (0.55-1.02); SODIUM 144 mmol/L (136-145); TOTAL PROTEIN 5.7 g/dL (6.4-8.2); eGFR BLACK RACES > 60 (>60); eGFR NON BLACK RACES > 60 (>60)
[2017-04-01] MEDS ORDERED: ZOLOFT PO ONE (09:13)
[2017-04-01] MEDS: COZAAR PO SCH (09:18)
[2017-04-01] MEDS: AQUA-MEPHYTON ADULT INJ SC SCH ×2 (09:18→20:00)
[2017-04-01] MEDS: CITRACAL + VITAMIN D PO SCH (09:18)
[2017-04-01] MEDS: ZOLOFT PO SCH (09:19)
[2017-04-01] MEDS: FOLIC ACID TAB 1 MG PO SCH (09:19)
[2017-04-01] MEDS: ZEBETA TAB 5 MG PO SCH (09:19)
[2017-04-01] MEDS: PLAQUENIL PO SCH ×2 (09:19→20:00)
[2017-04-01] MEDS: NORCO 10/325 TAB PO PRN ×2 (10:30→20:00)
[2017-04-01] MEDS: NEURONTIN CAP 100 MG PO SCH (19:59)
[2017-04-01] MEDS: ZOCOR TAB 40 MG PO SCH (19:59)
[2017-04-01] MEDS ORDERED: COUMADIN TAB 5 MG PO SCH ×2 (21:00)
--- NOTE | 2017-04-01 22:18 | DR.H&P ---
H&P - History & Physical for Day of: H&P Date: 03/30/17 - Chief Complaint Chief Complaint: critical INR - Allergies Allergies/Adverse Reactions: Allergies Allergy/AdvReac Type Severity Reaction Status Date / Time No Known Drug Allergies Allergy Verified 01/21/17 18:43 - History of Present Illness History of Present Illness: is a 76 year old patient of Lydia cheng. Patient had outpatient labs done at the hospital today, where a INR of 9.09 was reported. is currently on coumadin 7.5mg po HS for a history of cardiac arrhythmia. Further medical history includes the following: cataracts, coronary artery disease, cardiac arrhythmia, pacemaker, hypertension, anxiety, carotid endarterectomy, cholecystectomy, and tubal ligation. KHANG Shaw at [facility] consulted with us for admission. We admitted patient for further treatment and evaluation of coumadin toxicity. On admission, vitals were 98.0-69-14-100%-172/79. Labs were obtained. Abnormal lab values include the following: HGB 10.3, HCT 31.4, PLT count 121, INR 8.53, BUN 22, Creatinine 1.10, GFR 51. On examination of patient, irregular heart rhythm noted with PVCs noted on cardiac rehabilitation specialist. Bilateral lungs clear to auscultation. Abdomen round, soft, and non-tender with normal bowel sounds noted in all quadrants. Normal range of motion noted to all extremities. Patient was started on normal saline at 75ml/hr and Vitamin K 5mg SC x 1 dose. We will follow up with AM labs and continue to monitor patient.. - Past Medical History Past Medical History: Anemia, Anxiety, Arthritis, Depression, Dyslipidemia, GERD , Hypertension, Kidney Stones - Past Surgical History Surgical History: Carotid Endarterectomy, Cholecystectomy - Family History Family Medical History: Diabetes Mellitus, Hypertension - Social History Does patient currently use any type of tobacco product: No Have you used tobacco products in the last 12 months: No Type of Tobacco Use: None Does any household member use tobacco: No Alcohol Use: None Drug Use: None - Medications Home Medications: Gabapentin [NEURONTIN CAP 100 MG *] 200 mg PO HS 03/30/17 [History Confirmed ] - Review of Systems Constitutional: Weakness Eyes: No Symptoms Reported. denies: See HPI, Pain, Vision Change, Conjunctivae Inflammation, Eyelid Inflammation, Redness, Other ENT: No Symptoms Reported. denies: See HPI, Ear Pain, Ear Discharge, Nose Pain , Nose Discharge, Nose Congestion, Mouth Pain, Mouth Swelling, Throat Pain, Throat Swelling, Other Respiratory: No Symptoms Reported. denies: See HPI, Cough, Dry, Shortness of Breath, Hemoptysis, SOB with Excertion, Pleuritic Pain, Sputum, Wheezing, Other Cardiovascular: No Symptoms Reported. denies: Chest Pain, See HPI, Palpitations , Orthopnea, Paroxysmal Noc. Dyspnea, Edema, Light Headedness, Other Gastrointestinal: No Symptoms Reported. denies: See HPI, Nausea, Vomiting, Abdominal Pain, Diarrhea, Constipation, Melena, Hematochezia, Other Genitourinary: No Symptoms Reported. denies: See HPI, Dysuria, Frequency, Incontinence, Hematuria, Retention, Other Musculoskeletal: No Symptoms Reported. denies: See HPI, Shoulder Pain, Arm Pain , Back Pain, Hand Pain, Leg Pain, Foot Pain, Neck Pain, Other Skin: No Symptoms Reported Neurological: Weakness - Physical Exam Vital Signs: Temperature 97.8 F Pulse Rate [Left Radial] 71 Respiratory Rate 18 Blood Pressure [Left Arm] 150/66 Blood Pressure [Right Arm] 142/62 Blood Pressure 142/62 O2 Sat by Pulse Oximetry 97 Oriented: Normal Eyes: Normal. negative: Blurred Vision, Diplopia, Discharge, Pain, Redness, Photophobia, Other Ear: Normal Nose: Normal. negative: Injected, Discharge, Blood, Other Throat: Normal. negative: Tonsillar Hypertrophy, Red, Exudate, Dry, Other Respiratory: Clear Throughout Cardiovascular: Irregular. negative: S3, S4, Murmur, Edema : Normal. negative: Dysuria, Hematuria, Frequency, Discharge, Testicular Pain , Bleeding, , Other Auscultation: Bowel Sounds: Normal. negative: Bruit, Absent, Increased, Decreased, High Pitched, Other Palpation: Normal. negative: Spleen Enlarged, Liver Enlarged, Mass Pulsatile, Other Tenderness: Normal Skin: Normal Musculoskeletal: Normal Psychiatric: Normal. negative: Anxiety, Depression, Agitation, Other Mood Description: Calm Affect: Normal - Assessment/Plan (1) Coumadin toxicity Qualifiers: Encounter type: initial encounter Injury intent: undetermined intent Qualified Code(s): T45.514A - Poisoning by anticoagulants, undetermined, initial encounter Status: Acute Plan: VITAMIN K 5MG SC X 1 DOSE, CONTINUE TO MONITOR INR.
--- NOTE | 2017-04-01 23:11 | PCM.PROG ---
Progress Note - Progress Note for Day of Date: 03/31/17 - Subjective Subjective: WAS ADMITTED FOR COUMADIN TOXITY WITH AN ELEVATED INR. TODAY, SHE IS ALERT AND ORIENTED, LYING IN BED ON MORNING ROUNDS. TODAY, SHE IS NOTED WITH COMPLAINTS OF GENERALIZED WEAKNESS. ON EXAMINATION, HEART IS REGULAR IN RATE AND RHYTHM. BILATERAL LUNGS ARE CLEAR TO AUSCULTATION. ABDOMEN IS ROUND , SOFT, AND NON-TENDER WITH NORMAL BOWEL SOUNDS NOTED TO AUSCULTATION. NORMAL RANGE OF MOTION IS NOTED TO ALL EXTREMITIES. HER VITALS THIS MORNING ARE 97.2-75 -20-99%-144/67. LABS WERE OBTAINED. ABNORMAL LAB VALUES INCLUDE THE FOLLOWING: WBC 3.1, RBC 3.34, HGB 8.8, HCT 27.5, PLT COUNT 97, INR INCREASED FROM 8.53 TO 9.23, CHLORIDE 109, CREATININE 1.04, GFR 55, GLUCOSE 126, CALCIUM 8.2, ALK PHOS 39, TOTAL PROTEIN 6.2, ALBUMIN 2.8. TODAY, WE WILL ADMINISTER VITAMIN K 10MG SC X 1 DOSE. WE WILL CONTINUE TO MONITOR INR EVERY 12 HOURS AND ADMINISTER VITAMIN K 10MG SC EVERY 12 HOURS UNTIL INR IS LESS THAN 6. WE EDUCATED PATIENT ON A COUMADIN DIET. PATIENT VERBALIZED UNDERSTANDING. WE PLAN TO FOLLOW UP WITH AM LABS AND CONTINUE TO MONITOR PATIENT. - Past Medical Family Social History Past Med/Fam/Surg Hx: No changes since H&P Allergies: Allergies No Known Drug Allergies Allergy (Verified 01/21/17 18:43) - Review of Systems ROS: No change since H&P - Vital Signs and I&O's Vital Signs: Temperature 97.7 F Pulse Rate [Left Radial] 70 Respiratory Rate 19 Blood Pressure [Left Arm] 167/73 Blood Pressure [Right Arm] 142/62 Blood Pressure 142/62 O2 Sat by Pulse Oximetry 99 Intake and Output: Intake & Output 03/30/17 03/31/17 04/01/17 04/02/17 11:59 11:59 11:59 11:59 Intake Total 1969 3510 450 Output Total 0 Balance 1969 3510 450 - Physical Exam Oriented: Normal Eyes: Normal. negative: Blurred Vision, Diplopia, Discharge, Pain, Redness, Photophobia, Other Ear: Normal Nose: Normal. negative: Injected, Discharge, Blood, Other Throat: Normal. negative: Tonsillar Hypertrophy, Red, Exudate, Dry, Other Respiratory: Normal Cardiovascular: Normal. negative: S3, S4, Murmur, Edema : Normal. negative: Dysuria, Hematuria, Frequency, Discharge, Testicular Pain , Bleeding, , Other Auscultation: Bowel Sounds: Normal. negative: Bruit, Absent, Increased, Decreased, High Pitched, Other Tenderness: Normal Skin: Normal Musculoskeletal: Normal Psychiatric: Normal. negative: Anxiety, Depression, Agitation, Other Mood Description: Calm Affect: Normal Speech Pattern: Clear, Appropriate - Laboratory and Diagnostics Result Diagrams: 04/01/17 05:46 04/01/17 05:46 Labs: Laboratory WBC 3.6 X10^3/uL (3.6-10.0) 04/01/17 05:46 RBC 3.19 X10^6/uL (3.5-5.4) L 04/01/17 05:46 Hgb 8.5 g/dL (12.0-16.0) L 04/01/17 05:46 Hct 26.2 % (36.0-47.0) L 04/01/17 05:46 MCV 82.3 fL (80.0-100.0) 04/01/17 05:46 MCH 26.7 pg (27.0-34.0) L 04/01/17 05:46 MCHC 32.4 g/dL (33.0-35.0) L 04/01/17 05:46 RDW 14.9 % (11.6-16.5) 04/01/17 05:46 Plt Count 101 X10^3/uL (150.0-450.0) L 04/01/17 05:46 MPV 8.3 fL (7.4-11.0) 04/01/17 05:46 Neut % 65.6 % (42.0-75.0) 04/01/17 05:46 Lymph % 20.9 % (21.0-51.0) L 04/01/17 05:46 [place] % 6.7 % (0.0-13.0) 04/01/17 05:46 Eos % 5.9 % (0.9-2.9) H 04/01/17 05:46 Baso % 0.9 % (0.2-1.0) 04/01/17 05:46 Neut # 2.4 x10^3/uL (2.2-4.8) 04/01/17 05:46 Lymph # 0.8 X10^3/uL (1.3-2.9) L 04/01/17 05:46 [place] # 0.2 x10^3/uL (0.3-0.8) L 04/01/17 05:46 Eos # 0.2 x10^3/uL (0.0-0.2) 04/01/17 05:46 Baso # 0.0 X10^3/uL (0.0-0.1) 04/01/17 05:46 Absolute Nucleated RBC 0.0 /100WBC 04/01/17 05:46 INR Target Range - 04/01/17 05:46 INR 2.43 (0.8-1.3) H 04/01/17 05:46 Sodium 144 mmol/L (136-145) 04/01/17 05:46 Corrected Sodium 144 mmol/L (136-145) 04/01/17 05:46 Potassium 3.7 mmol/L (3.5-5.1) 04/01/17 05:46 Chloride 111 mmol/L (98-107) H 04/01/17 05:46 Carbon Dioxide 25.0 mmol/L (21-32) 04/01/17 05:46 BUN 14 mg/dL (7-18) 04/01/17 05:46 Creatinine 0.95 mg/dL (0.55-1.02) 04/01/17 05:46 Est GFR (MDRD) Af Amer > 60 (>60) 04/01/17 05:46 Est GFR (MDRD) Non-Af > 60 (>60) 04/01/17 05:46 Glucose 118 mg/dL (65-99) H 04/01/17 05:46 Calcium 7.9 mg/dL (8.5-10.1) L 04/01/17 05:46 Corrected Calcium 9.0 mg/dL (8.5-10.1) 04/01/17 05:46 Total Bilirubin 0.40 mg/dL (0.2-1.0) 04/01/17 05:46 AST 18 Units/L (15-37) 04/01/17 05:46 ALT 20 Units/L (12-78) 04/01/17 05:46 Alkaline Phosphatase 47 Units/L (46-116) 04/01/17 05:46 Total Protein 5.7 g/dL (6.4-8.2) L 04/01/17 05:46 Albumin 2.6 g/dL (3.4-5.0) L 04/01/17 05:46 Globulin 3.1 g/dL (2.5-4.5) 04/01/17 05:46 Albumin/Globulin Ratio 0.8 Ratio (1.1-2.1) L 04/01/17 05:46 - Plan (1) Coumadin toxicity Status: Acute Qualifiers: Encounter type: initial encounter Injury intent: undetermined intent Qualified Code(s): T45.514A - Poisoning by anticoagulants, undetermined, initial encounter Plan: ADMINISTER VITAMIN K 10MG SC, CONTINUE TO MONITOR INR, ADMINISTER VITAMIN K 10MG SC Q12H UNTIL INR LESS THAN 6.
[2017-04-02] MEDS: NS 1000 ML 1,000 ML IV SCH (06:11)
[2017-04-02 06:17] LABS: BASOPHILS % (AUTO) 0.6 % (0.2-1.0); EOSINOPHILS # (AUTO) 0.2 x10^3/uL (0.0-0.2); EOSINOPHILS % (AUTO) 5.7 % (0.9-2.9); HEMOGLOBIN 8.3 g/dL (12.0-16.0); LYMPHOCYTES # (AUTO) 0.8 X10^3/uL (1.3-2.9); LYMPHOCYTES % (AUTO) 23.2 % (21.0-51.0); MEAN CORPUSCULAR HEMOGLOBIN 26.9 pg (27.0-34.0); MEAN CORPUSCULAR HGB CONC 33.1 g/dL (33.0-35.0); MEAN CORPUSCULAR VOLUME 81.5 fL (80.0-100.0); MEAN PLATELET VOLUME 8.2 fL (7.4-11.0); MONOCYTES # (AUTO) 0.2 x10^3/uL (0.3-0.8); MONOCYTES % (AUTO) 7.2 % (0.0-13.0); NEUTROPHILS # (AUTO) 2.1 x10^3/uL (2.2-4.8); NEUTROPHILS % (AUTO) 63.3 % (42.0-75.0); PLATELET COUNT 100 X10^3/uL (150.0-450.0); RED BLOOD COUNT 3.06 X10^6/uL (3.5-5.4); WHITE BLOOD COUNT 3.4 X10^3/uL (3.6-10.0)
[2017-04-02 06:30] LABS: ALANINE AMINOTRANSFERASE 21 Units/L (12-78); ALBUMIN 2.4 g/dL (3.4-5.0); ALKALINE PHOSPHATASE 41 Units/L (46-116); ASPARTATE AMINO TRANSFERASE 18 Units/L (15-37); BLOOD UREA NITROGEN 16 mg/dL (7-18); CALCIUM 7.6 mg/dL (8.5-10.1); CARBON DIOXIDE 26.1 mmol/L (21-32); CHLORIDE 114 mmol/L (98-107); COR CA(FOR HYPOALB) 8.9 mg/dL (8.5-10.1); SODIUM 145 mmol/L (136-145); TOTAL PROTEIN 5.6 g/dL (6.4-8.2); eGFR BLACK RACES > 60 (>60); eGFR NON BLACK RACES > 60 (>60)
[2017-04-02] MEDS ORDERED: TESSALON PERLES PO PRN (07:20)
[2017-04-02] MEDS ORDERED: ULTRAM PO PRN (07:20)
[2017-04-02] MEDS ORDERED: NORCO 10/325 TAB PO PRN (07:20)
[2017-04-02] MEDS ORDERED: NS 1000 ML 1,000 ML IV SCH (08:12)
[2017-04-02] MEDS ORDERED: ZOLOFT PO ONE (08:48)
[2017-04-02] MEDS ORDERED: COZAAR PO SCH (09:00)
[2017-04-02] MEDS ORDERED: PLAQUENIL PO SCH (09:00)
[2017-04-02] MEDS ORDERED: FOLIC ACID TAB 1 MG PO SCH (09:00)
[2017-04-02] MEDS ORDERED: ZOLOFT PO SCH (09:00)
[2017-04-02] MEDS ORDERED: CITRACAL + VITAMIN D PO SCH (09:00)
[2017-04-02] MEDS ORDERED: ZEBETA TAB 5 MG PO SCH (09:00)
[2017-04-02] MEDS: AQUA-MEPHYTON ADULT INJ SC SCH ×2 (09:42→09:51)
[2017-04-02 11:02] VITALS: BP 169/81
--- NOTE | 2017-04-02 14:49 | PCM.PROG ---
Progress Note - Progress Note for Day of Date: 04/01/17 - Subjective Subjective: WAS ADMITTED FOR COUMADIN TOXITY WITH AN ELEVATED INR. TODAY, SHE IS ALERT AND ORIENTED, LYING IN BED ON MORNING ROUNDS. TODAY, SHE IS CONTINUES WITH COMPLAINTS OF GENERALIZED WEAKNESS. ON EXAMINATION, HEART IS REGULAR IN RATE AND RHYTHM. BILATERAL LUNGS ARE CLEAR TO AUSCULTATION. ABDOMEN IS ROUND, SOFT, AND NON-TENDER WITH NORMAL BOWEL SOUNDS NOTED TO AUSCULTATION. NORMAL RANGE OF MOTION IS NOTED TO ALL EXTREMITIES. HER VITALS THIS MORNING ARE 97.2-74-21-98%-149/67. LABS WERE OBTAINED. ABNORMAL LAB VALUES INCLUDE THE FOLLOWING: RBC 3.19, HGB 8.5, HCT 26.2, PLT COUNT 101, INR 2.43, CHLORIDE 111, GLUCOSE 118, CALCIUM 7.9, TOTAL PROTEIN 5.7, ALBUMIN 2.6. TODAY, WE WILL START COUMADIN 5MG AT BEDTIME AND WILL RECHECK INR IN THE MONRING. WE, AGAIN, EDUCATED PATIENT ON A COUMADIN DIET. PATIENT VERBALIZED UNDERSTANDING. WE PLAN TO FOLLOW UP WITH AM LABS AND CONTINUE TO MONITOR PATIENT.IF PATIENT REMAINS STABLE, WE WILL PLAN FOR DISCHARGE IN THE MORNING. - Past Medical Family Social History Past Med/Fam/Surg Hx: No changes since H&P Allergies: Allergies No Known Drug Allergies Allergy (Verified 01/21/17 18:43) - Review of Systems ROS: No change since H&P - Vital Signs and I&O's Vital Signs: Temperature 98.1 F Pulse Rate [Left Radial] 76 Respiratory Rate 18 Blood Pressure [Left Arm] 169/81 Blood Pressure [Right Arm] 142/62 Blood Pressure 142/62 O2 Sat by Pulse Oximetry 96 Intake and Output: Intake & Output 03/31/17 04/01/17 04/02/17 04/03/17 11:59 11:59 11:59 11:59 Intake Total 1969 3510 2640 Output Total 0 Balance 19690 2640 - Physical Exam Oriented: Normal Eyes: Normal. negative: Blurred Vision, Diplopia, Discharge, Pain, Redness, Photophobia, Other Ear: Normal Nose: Normal. negative: Injected, Discharge, Blood, Other Throat: Normal. negative: Tonsillar Hypertrophy, Red, Exudate, Dry, Other Respiratory: Normal Cardiovascular: Normal. negative: S3, S4, Murmur, Edema : Normal. negative: Dysuria, Hematuria, Frequency, Discharge, Testicular Pain , Bleeding, , Other Auscultation: Bowel Sounds: Normal. negative: Bruit, Absent, Increased, Decreased, High Pitched, Other Palpation: Normal Tenderness: Normal Skin: Normal Musculoskeletal: Normal Psychiatric: Normal. negative: Anxiety, Depression, Agitation, Other Mood Description: Calm Affect: Normal Speech Pattern: Clear, Appropriate - Laboratory and Diagnostics Result Diagrams: 04/02/17 05:50 04/02/17 05:50 Labs: Laboratory WBC 3.4 X10^3/uL (3.6-10.0) L 04/02/17 05:50 RBC 3.06 X10^6/uL (3.5-5.4) L 04/02/17 05:50 Hgb 8.3 g/dL (12.0-16.0) L 04/02/17 05:50 Hct 25.0 % (36.0-47.0) L 04/02/17 05:50 MCV 81.5 fL (80.0-100.0) 04/02/17 05:50 MCH 26.9 pg (27.0-34.0) L 04/02/17 05:50 MCHC 33.1 g/dL (33.0-35.0) 04/02/17 05:50 RDW 15.0 % (11.6-16.5) 04/02/17 05:50 Plt Count 100 X10^3/uL (150.0-450.0) L 04/02/17 05:50 MPV 8.2 fL (7.4-11.0) 04/02/17 05:50 Neut % 63.3 % (42.0-75.0) 04/02/17 05:50 Lymph % 23.2 % (21.0-51.0) 04/02/17 05:50 [place] % 7.2 % (0.0-13.0) 04/02/17 05:50 Eos % 5.7 % (0.9-2.9) H 04/02/17 05:50 Baso % 0.6 % (0.2-1.0) 04/02/17 05:50 Neut # 2.1 x10^3/uL (2.2-4.8) L 04/02/17 05:50 Lymph # 0.8 X10^3/uL (1.3-2.9) L 04/02/17 05:50 [place] # 0.2 x10^3/uL (0.3-0.8) L 04/02/17 05:50 Eos # 0.2 x10^3/uL (0.0-0.2) 04/02/17 05:50 Baso # 0.0 X10^3/uL (0.0-0.1) 04/02/17 05:50 Absolute Nucleated RBC 0.2 /100WBC 04/02/17 05:50 INR Target Range - 04/02/17 05:50 INR 1.31 (0.8-1.3) H 04/02/17 05:50 Sodium 145 mmol/L (136-145) 04/02/17 05:50 Corrected Sodium TNP 04/02/17 05:50 Potassium 3.8 mmol/L (3.5-5.1) 04/02/17 05:50 Chloride 114 mmol/L (98-107) H 04/02/17 05:50 Carbon Dioxide 26.1 mmol/L (21-32) 04/02/17 05:50 BUN 16 mg/dL (7-18) 04/02/17 05:50 Creatinine 0.90 mg/dL (0.55-1.02) 04/02/17 05:50 Est GFR (MDRD) Af Amer > 60 (>60) 04/02/17 05:50 Est GFR (MDRD) Non-Af > 60 (>60) 04/02/17 05:50 Glucose 108 mg/dL (65-99) H 04/02/17 05:50 Calcium 7.6 mg/dL (8.5-10.1) L 04/02/17 05:50 Corrected Calcium 8.9 mg/dL (8.5-10.1) 04/02/17 05:50 Total Bilirubin 0.30 mg/dL (0.2-1.0) 04/02/17 05:50 AST 18 Units/L (15-37) 04/02/17 05:50 ALT 21 Units/L (12-78) 04/02/17 05:50 Alkaline Phosphatase 41 Units/L (46-116) L 04/02/17 05:50 Total Protein 5.6 g/dL (6.4-8.2) L 04/02/17 05:50 Albumin 2.4 g/dL (3.4-5.0) L 04/02/17 05:50 Globulin 3.2 g/dL (2.5-4.5) 04/02/17 05:50 Albumin/Globulin Ratio 0.8 Ratio (1.1-2.1) L 04/02/17 05:50 - Plan (1) Coumadin toxicity Status: Resolved Qualifiers: Encounter type: initial encounter Injury intent: undetermined intent Qualified Code(s): T45.514A - Poisoning by anticoagulants, undetermined, initial encounter Plan: CONTINUE TO MONITOR INR (2) History of atrial fibrillation Status: Acute Plan: COUMADIN 5MG PO AT HS, CONTINUE TO MONITOR (3) Hypertension Status: Acute Qualifiers: Hypertension type: essential hypertension Qualified Code(s): I10 - Essential (primary) hypertension Plan: CONTINUE [place]ARTAN, CONTINUE BYSTOLIC, CONTINUE TO MONITOR (4) Hyperlipidemia Status: Acute Qualifiers: Hyperlipidemia type: mixed hyperlipidemia Qualified Code(s): E78.2 - Mixed hyperlipidemia Plan: CONTINUE SIMVASTATIN, CONTINUE TO MONITOR (5) Depression Status: Acute Qualifiers: Depression Type: major depressive disorder Major depression recurrence: recurrent Active/Remission status: remission status unspecified Qualified Code(s): F33.9 - Major depressive disorder, recurrent, unspecified Plan: CONTINUE ZOLOFT, CONTINUE TO MONITOR (6) Anemia Status: Acute Qualifiers: Anemia type: iron deficiency Iron deficiency anemia type: unspecified iron deficiency Qualified Code(s): D50.9 - Iron deficiency anemia, unspecified Plan: CONTINUE FOLIC ACID, CONTINUE TO MONITOR (7) Osteoarthritis Status: Acute Qualifiers: Osteoarthritis location: multiple joints Osteoarthritis type: unspecified Qualified Code(s): M15.9 - Polyosteoarthritis, unspecified Plan: CONTINUE PLAQUENIL, CONTINUE TO MONITOR
[2017-04-02] MEDS ORDERED: COUMADIN TAB 5 MG PO SCH (21:00)
[2017-04-02] MEDS ORDERED: NEURONTIN CAP 100 MG PO SCH (21:00)
[2017-04-02] MEDS ORDERED: ZOCOR TAB 40 MG PO SCH (21:00)
== END 2017-04-02 13:00 | disposition home or self-care (01) | DRG 920 ==
LOC: ICU 14:13 → MED/SURG 04-02 07:35
PROVIDERS: ADMIT Internal Medicine; ATTEND Internal Medicine
DX: T88.7XXA Unspecified adverse effect of drug or medicament, initial encounter (principal); T45.515A Adverse effect of anticoagulants, initial encounter; R79.1 Abnormal coagulation profile; Z51.81 Encounter for therapeutic drug level monitoring; I25.10 Atherosclerotic heart disease of native coronary artery without angina pectoris; E78.2 Mixed hyperlipidemia; K21.9 Gastro-esophageal reflux disease without esophagitis; F41.8 Other specified anxiety disorders; R51 Headache; D50.9 Iron deficiency anemia, unspecified; M15.8 Other polyosteoarthritis; F33.8 Other recurrent depressive disorders; I48.91 Unspecified atrial fibrillation
CPT/HCPCS: 36415; 80053; 85025; 85610; A4216; A4222; J3430

== ENCOUNTER → 2017-03-30 | Outpatient (CLI) | payer OTHER, MEDICAID | LOC: LAB 12:44 | PROVIDERS: ATTEND Nurse Practitioner Family | DX: Z79.01 Long term (current) use of anticoagulants (principal) | CPT/HCPCS: 36415; 85610 ==

== ENCOUNTER → 2017-04-05 | Outpatient (CLI) | payer OTHER, MEDICAID ==
[2017-04-02 11:02] VITALS: BP 169/81
== END ==
LOC: LAB 15:41
PROVIDERS: ATTEND Nurse Practitioner Family
DX: Z79.01 Long term (current) use of anticoagulants (principal)
CPT/HCPCS: 36415; 85610

== ENCOUNTER → 2017-04-13 | Outpatient (CLI) | payer OTHER, MEDICAID ==
[2017-04-02 11:02] VITALS: BP 169/81
[2017-04-13 11:34] LABS: BASOPHILS % (AUTO) 0.6 % (0.2-1.0); EOSINOPHILS % (AUTO) 0.5 % (0.9-2.9); HEMATOCRIT 32.9 % (36.0-47.0); HEMOGLOBIN 10.7 g/dL (12.0-16.0); LYMPHOCYTES # (AUTO) 0.4 X10^3/uL (1.3-2.9); LYMPHOCYTES % (AUTO) 12.2 % (21.0-51.0); MEAN CORPUSCULAR HEMOGLOBIN 26.2 pg (27.0-34.0); MEAN CORPUSCULAR HGB CONC 32.6 g/dL (33.0-35.0); MEAN CORPUSCULAR VOLUME 80.6 fL (80.0-100.0); MEAN PLATELET VOLUME 7.1 fL (7.4-11.0); MONOCYTES # (AUTO) 0.3 x10^3/uL (0.3-0.8); MONOCYTES % (AUTO) 9.3 % (0.0-13.0); NEUTROPHILS # (AUTO) 2.3 x10^3/uL (2.2-4.8); NEUTROPHILS % (AUTO) 77.4 % (42.0-75.0); PLATELET COUNT 122 X10^3/uL (150.0-450.0); RED BLOOD COUNT 4.08 X10^6/uL (3.5-5.4); RED CELL DISTRIBUTION WIDTH 15.6 % (11.6-16.5); WHITE BLOOD COUNT 2.9 X10^3/uL (3.6-10.0)
[2017-04-13 11:47] LABS: ALANINE AMINOTRANSFERASE 20 Units/L (12-78); ALBUMIN 3.8 g/dL (3.4-5.0); ALKALINE PHOSPHATASE 50 Units/L (46-116); ASPARTATE AMINO TRANSFERASE 23 Units/L (15-37); BLOOD UREA NITROGEN 28 mg/dL (7-18); CALCIUM 9.4 mg/dL (8.5-10.1); CARBON DIOXIDE 28.1 mmol/L (21-32); CHLORIDE 101 mmol/L (98-107); CHOL/HDL RATIO 2.7 (0.0-5.0); CHOLESTEROL 192 mg/dL (0-200); CREATININE 1.45 mg/dL (0.55-1.02); HDL CHOLESTEROL 70 mg/dL (40-60); SODIUM 136 mmol/L (136-145); TOTAL PROTEIN 7.8 g/dL (6.4-8.2); TRIGLYCERIDES 96 mg/dL (0-150); eGFR BLACK RACES 45 (>60); eGFR NON BLACK RACES 37 (>60)
[2017-04-13 12:09] LABS: ERYTHROCYTE SEDIMENTATION RATE 44 MM/HOUR (0-20)
== END ==
LOC: LAB 11:02
PROVIDERS: ATTEND Nurse Practitioner Family
DX: Z86.39 Personal history of other endocrine, nutritional and metabolic disease (principal); E78.4 Other hyperlipidemia; E53.8 Deficiency of other specified B group vitamins; M06.09 Rheumatoid arthritis without rheumatoid factor, multiple sites
CPT/HCPCS: 36415; 80053; 80061; 82306; 82746; 85025; 85652; 86140

== ENCOUNTER → 2017-05-07 | Outpatient (CLI) | payer OTHER, MEDICAID | LOC: LAB 11:51 | PROVIDERS: ATTEND Nurse Practitioner Family | DX: Z79.01 Long term (current) use of anticoagulants (principal); R79.1 Abnormal coagulation profile | CPT/HCPCS: 36415; 85610 ==

== ENCOUNTER → 2017-07-23 | Outpatient (CLI) | payer OTHER, MEDICAID ==
[2017-07-23 10:01] LABS: BASOPHILS # (AUTO) 0.1 X10^3/uL (0.0-0.1); BASOPHILS % (AUTO) 1.3 % (0.2-1.0); EOSINOPHILS # (AUTO) 0.2 x10^3/uL (0.0-0.2); EOSINOPHILS % (AUTO) 4.7 % (0.9-2.9); HEMATOCRIT 30.9 % (36.0-47.0); HEMOGLOBIN 10.1 g/dL (12.0-16.0); LYMPHOCYTES # (AUTO) 1.3 X10^3/uL (1.3-2.9); MEAN CORPUSCULAR HEMOGLOBIN 26.9 pg (27.0-34.0); MEAN CORPUSCULAR HGB CONC 32.6 g/dL (33.0-35.0); MEAN CORPUSCULAR VOLUME 82.5 fL (80.0-100.0); MEAN PLATELET VOLUME 7.7 fL (7.4-11.0); MONOCYTES # (AUTO) 0.3 x10^3/uL (0.3-0.8); MONOCYTES % (AUTO) 6.4 % (0.0-13.0); NEUTROPHILS # (AUTO) 2.2 x10^3/uL (2.2-4.8); NEUTROPHILS % (AUTO) 55.6 % (42.0-75.0); PLATELET COUNT 103 X10^3/uL (150.0-450.0); RED BLOOD COUNT 3.74 X10^6/uL (3.5-5.4); RED CELL DISTRIBUTION WIDTH 15.9 % (11.6-16.5)
[2017-07-23 10:06] LABS: ALANINE AMINOTRANSFERASE 32 Units/L (12-78); ALBUMIN 3.5 g/dL (3.4-5.0); ALKALINE PHOSPHATASE 50 Units/L (46-116); ASPARTATE AMINO TRANSFERASE 23 Units/L (15-37); BLOOD UREA NITROGEN 28 mg/dL (7-18); CALCIUM 8.5 mg/dL (8.5-10.1); CARBON DIOXIDE 28.7 mmol/L (21-32); CHLORIDE 108 mmol/L (98-107); CREATININE 1.17 mg/dL (0.55-1.02); LACTATE DEHYDROGENASE 220 Units/L (81-234); SODIUM 142 mmol/L (136-145); eGFR BLACK RACES 58 (>60); eGFR NON BLACK RACES 48 (>60)
== END | disposition home or self-care (01) | DRG 813 ==
LOC: LAB 09:38
PROVIDERS: ATTEND Internal Medicine Hematology & Oncology
DX: D69.6 Thrombocytopenia, unspecified (principal); D64.9 Anemia, unspecified
CPT/HCPCS: 36415; 80053; 83615; 85025

== ENCOUNTER 2020-01-18 17:21 | Inpatient (IN) ==
[2020-01-18 17:38] VITALS: BMI 24.7
--- NOTE | 2020-01-18 17:42 | DR.SOBA ---
HPI Time Seen Time Seen by Provider: 01/18/20 17:42 Primary Care Physician Primary Care Physician: THI ARIZMENDI Complaints Chief Complaint:: PT C/O SOB, DIARRHEA, AND CHILLS AT HOME ( PT HAS HELD HER WATER PILL DUE TO HER DIARRHEA ) PT HAS SWELLING TO HER LOWER LEGS AND FEET PT LUNGS ARE CLEAR PT STATES THIS HAS BEEN GOING ON FOR A WHILE ,BR ,,BR COVID-19 Coronavirus risk:travel/contact w/high risk person: No Has patient experienced Coronavirus symptoms: No Source History Provided: Patient Mode of Arrival Mode of Arrival: Wheelchair Timing Onset of Chief Complaint: 01/07/20 PMH PMH Past Medical History: Yes Past Medical History: Anxiety, Arthritis, Dyslipidemia and Hypertension Past Surgical History: Yes Surgical History: Carotid Endarterectomy, Cholecystectomy and Other Past Surgical History Comment: PACEMAKER Family History History of Family Medical Conditions: Yes Family Medical History: Diabetes Mellitus Social History Does patient currently use any type of tobacco product: No Have you used tobacco products in the last 12 months: No Type of Tobacco Use: None Does any household member use tobacco: No Alcohol Use: None Do you use any recreational Drugs:: No Lives With: Family Lives Where: Home Travel Risk Coronavirus risk:travel/contact w/high risk person: No Has patient experienced Coronavirus symptoms: No Infectious screening In the last 2 months have you had wt loss of >10#?: NO Have you had fever, night sweats or hemotysis?: No Have you traveled outside the country in the last 6 months?: No Isolation: Droplet PE Vital Signs Vitals: Temperature 98.3 F Pulse Rate [Left Brachial] 112 Pulse Rate 64 Respiratory Rate 18 Blood Pressure [Left Arm] 148/73 Blood Pressure 160/72 O2 Sat by Pulse Oximetry 95 ROR Labs Reviewed Result Diagrams: 01/18/20 18:41 01/18/20 18:41 Laboratory: WBC 6.5 X10^3/uL (3.6-10.0) 01/18/20 18:41 RBC 4.00 X10^6/uL (3.5-5.4) 01/18/20 18:41 Hgb 10.7 g/dL (12.0-16.0) L 01/18/20 18:41 Hct 34.9 % (36.0-47.0) L 01/18/20 18:41 MCV 87.2 fL (80.0-100.0) 01/18/20 18:41 MCH 26.7 pg (27.0-34.0) L 01/18/20 18: MCHC 30.6 g/dL (33.0-35.0) L 01/18/20 18:41 RDW 20.7 % (11.6-16.5) H 01/18/20 18:41 Plt Count 199 X10^3/uL (150.0-450.0) 01/18/20 18: Plt Count Comment Adequate (ADEQUATE) 01/18/20 18: MPV 8.7 fL (7.4-11.0) 01/18/20 18: Neut % (Auto) 89.6 % (42.0-75.0) H 01/18/20 18: Lymph % (Auto) 5.2 % (21.0-51.0) L 01/18/20 18: [place] % (Auto) 4.4 % (0.0-13.0) 01/18/20 18: Eos % (Auto) 0.3 % (0.9-2.9) L 01/18/20 18:41 Baso % (Auto) 0.5 % (0.2-1.0) 01/18/20 18: Neut # (Auto) 5.8 x10^3/uL (2.2-4.8) H 01/18/20 18:41 Lymph # (Auto) 0.3 X10^3/uL (1.3-2.9) L 01/18/20 18:41 [place] # (Auto) 0.3 x10^3/uL (0.3-0.8) 01/18/20 18: Eos # (Auto) 0.0 x10^3/uL (0.0-0.2) 01/18/20 18: Baso # (Auto) 0.0 X10^3/uL (0.0-0.1) 01/18/20 18: Absolute Nucleated RBC 0.4 /100WBC 01/18/20 18:41 Plt Morphology Comment Normal (NORMAL) 01/18/20 18: RBC Morphology Abnormal (NORMAL) A 01/18/20 18:41 Anisocytosis 1+ A 01/18/20 18:41 D-Dimer > 20.00 ug/ml (0.0-0.57) H* 01/18/20 18:41 Sodium 141 mmol/L (136-145) 01/18/20 18:41 Corrected Sodium TNP 01/18/20 18:41 Potassium 4.9 mmol/L (3.5-5.1) 01/18/20 18:41 Chloride 106 mmol/L (98-107) 01/18/20 18:41 Carbon Dioxide 19.2 mmol/L (21-32) L 01/18/20 18:41 BUN 26 mg/dL (7-18) H 01/18/20 18:41 Creatinine 1.58 mg/dL (0.55-1.02) H 01/18/20 18:41 Est GFR (MDRD) Af Amer 41 (>60) L 01/18/20 18:41 Est GFR (MDRD) Non-Af 34 (>60) L 01/18/20 18:41 Glucose 83 mg/dL (65-99) 01/18/20 18:41 Calcium 9.2 mg/dL (8.5-10.1) 01/18/20 18:41 Corrected Calcium 9.8 mg/dL (8.5-10.1) 01/18/20 18:41 Total Bilirubin 1.20 mg/dL (0.2-1.0) H 01/18/20 18:41 AST 62 Units/L (15-37) H 01/18/20 18:41 ALT 32 Units/L (12-78) 01/18/20 18:41 Alkaline Phosphatase 130 Units/L (46-116) H 01/18/20 18:41 B-Natriuretic Peptide 2480 pg/mL (0-79) H* 01/18/20 18:41 Total Protein 7.6 g/dL (6.4-8.2) 01/18/20 18:41 Albumin 3.2 g/dL (3.4-5.0) L 01/18/20 18:41 Globulin 4.4 g/dL (2.5-4.5) 01/18/20 18:41 Albumin/Globulin Ratio 0.7 Ratio (1.1-2.1) L 01/18/20 18:41 Specimen Type Clean catch urine 01/18/20 19:00 Urine Color Miracle (YELLOW) 01/18/20 19:00 Urine Appearance Clear (CLEAR) 01/18/20 19:00 Urine pH 5.0 (5.0 - 8.0) 01/18/20 19:00 Ur Specific [place] 1.025 (1.000-1.030) 01/18/20 19:00 Urine Protein 3+ (NEGATIVE) 01/18/20 19:00 Urine Glucose (UA) Negative (NEGATIVE) 01/18/20 19:00 Urine Ketones 1+ (NEGATIVE) 01/18/20 19:00 Urine Occult Blood 1+ (NEGATIVE) 01/18/20 19:00 Urine Nitrite Negative (NEGATIVE) 01/18/20 19:00 Urine Bilirubin 1+ (NEGATIVE) 01/18/20 19:00 Urine Urobilinogen 2+ (NORMAL) 01/18/20 19:00 Ur Leukocyte Esterase 2+ (NEGATIVE) 01/18/20 19:00 Urine RBC 0-2 /HPF (0-3) 01/18/20 19:00 Urine WBC 3-5 /HPF (0-5) 01/18/20 19:00 Ur Squamous Epith Cells Few /HPF (NEGATIVE) 01/18/20 19:00 Amorphous Sediment 1+ /HPF (NEGATIVE) 01/18/20 19:00 Urine Bacteria Negative /HPF (NEGATIVE) 01/18/20 19:00 Hyaline Casts Rare /LPF (NEGATIVE) 01/18/20 19:00 Ur Culture Indicated? No/not indicated 01/18/20 19:00 SARS-CoV-2 (PCR) Negative (NEGATIVE) 01/18/20 20:32 Opioid Opioid Risk Tool Age (Agustin box if 16-45): No History of Preadolescent Sexual Abuse: No Total: 0 Total Score Risk Category: Low Risk Copyright: Maxim KURTZ predicting aberrant behaviors Diagnosis Discharge Problem: Bilateral pleural effusion, SOB (shortness of breath) CHF (congestive heart failure) Qualifiers: Heart failure type: combined systolic and diastolic Heart failure chronicity: acute on chronic Qualified Code(s): I50.43 - Acute on chronic combined systolic (congestive) and diastolic (congestive) heart failure Instructions Forms: Precautions for COVID19 Patient Portal Social Distancing
[2020-01-18 19:00] LABS: ALANINE AMINOTRANSFERASE 32 Units/L (12-78); ALBUMIN 3.2 g/dL (3.4-5.0); ALKALINE PHOSPHATASE 130 Units/L (46-116); ASPARTATE AMINO TRANSFERASE 62 Units/L (15-37); BLOOD UREA NITROGEN 26 mg/dL (7-18); CALCIUM 9.2 mg/dL (8.5-10.1); CARBON DIOXIDE 19.2 mmol/L (21-32); CHLORIDE 106 mmol/L (98-107); COR CA(FOR HYPOALB) 9.8 mg/dL (8.5-10.1); CREATININE 1.58 mg/dL (0.55-1.02); SODIUM 141 mmol/L (136-145); TOTAL PROTEIN 7.6 g/dL (6.4-8.2); eGFR NON BLACK RACES 34 (>60)
[2020-01-18 19:01] LABS: BASOPHILS % (AUTO) 0.5 % (0.2-1.0); EOSINOPHILS % (AUTO) 0.3 % (0.9-2.9); HEMATOCRIT 34.9 % (36.0-47.0); HEMOGLOBIN 10.7 g/dL (12.0-16.0); LYMPHOCYTES # (AUTO) 0.3 X10^3/uL (1.3-2.9); LYMPHOCYTES % (AUTO) 5.2 % (21.0-51.0); MEAN CORPUSCULAR HEMOGLOBIN 26.7 pg (27.0-34.0); MEAN CORPUSCULAR HGB CONC 30.6 g/dL (33.0-35.0); MEAN CORPUSCULAR VOLUME 87.2 fL (80.0-100.0); MEAN PLATELET VOLUME 8.7 fL (7.4-11.0); MONOCYTES # (AUTO) 0.3 x10^3/uL (0.3-0.8); MONOCYTES % (AUTO) 4.4 % (0.0-13.0); NEUTROPHILS # (AUTO) 5.8 x10^3/uL (2.2-4.8); NEUTROPHILS % (AUTO) 89.6 % (42.0-75.0); PLATELET COUNT 199 X10^3/uL (150.0-450.0); RED CELL DISTRIBUTION WIDTH 20.7 % (11.6-16.5); WHITE BLOOD COUNT 6.5 X10^3/uL (3.6-10.0)
[2020-01-18 19:02] LABS: ANISOCYTOSIS 1+; PLATELET MORPHOLOGY COMMENT NORMAL (NORMAL)
[2020-01-18 19:09] LABS: BILIRUBIN,URINE 1+ (NEGATIVE); BLOOD/HEMOGLOBIN,URINE 1+ (NEGATIVE); GLUCOSE, URINE NEGATIVE (NEGATIVE); KETONES,URINE 1+ (NEGATIVE); LEUKOCYTE ESTERASE ,URINE 2+ (NEGATIVE); NITRITES,URINE NEGATIVE (NEGATIVE); PROTEIN,URINE 3+ (NEGATIVE); UROBILINOGEN,URINE 2+ (NORMAL)
[2020-01-18 19:16] LABS: AMORPHOUS SEDIMENT,UR 1+ /HPF (NEGATIVE); APPEARANCE,URINE CLEAR (CLEAR); BACTERIA,URINE NEGATIVE /HPF (NEGATIVE); COLOR,URINE AMBER (YELLOW); HYALINE CASTS, URINE RARE /LPF (NEGATIVE); RBC,URINE 0-2 /HPF (0-3); SQUAMOUS EPITHELIAL CELL,UR FEW /HPF (NEGATIVE)
[2020-01-18] MEDS ORDERED: LASIX IVP ONE ×2 (19:47→19:50)
[2020-01-18] MEDS ORDERED: ZOFRAN INJ 4 MG VIAL IVP ONE (19:47)
[2020-01-18] MEDS ORDERED: ZOFRAN INJ 4 MG VIAL ONE (19:50)
--- NOTE | 2020-01-18 20:52 | RAD ---
HISTORYSOBSTUDYCHEST, 1 [id number] trachea is midline. The cardiac silhouette is enlarged, progressed since prior exam. Central pulmonary vascular congestion and perihilar interstitial edema versus infiltrates. Small left pleural effusion. Bibasilar patchy atelectasis versus infiltrates. Left chest wall cardiac pacer unchanged in position.. Interval right shoulder reverse total arthroplasty. Osseous structures are otherwise stable.IMPRESSIONCardiomegaly with central pulmonary vascular congestion and interstitial edema versus infiltrates.Small left pleural effusion and patchy bibasilar atelectasis versus infiltrates.Interval right reverse total shoulder arthroplasty.Electronically signed by: Saadia Wisdom (Jan 18, 2020 20:51:14)
--- NOTE | 2020-01-18 21:41 | CT ---
EXAM: CT CHEST WITH INTRAVENOUS CONTRASTHISTORY: Shortness of breath. Diarrhea.TECHNIQUE: Spiral axial CT images are obtained through the chest with the administration of 100 cc of Omnipaque 350 intravenous contrast. Coronal and sagittal images are reformatted.DOSIMETRY: Total DLP 4/15 mGycm; CTDI 90.82 mGyCOMPARISON: None available.FINDINGS:CARDIOVASCULAR: There is no evidence for pulmonary embolic disease. There is a left anterior chest wall subclavian cardiac pacer with intact pacer wires to the right atrium and right ventricle. There is cardiomegaly with four-chamber enlargement. There is coronary and aortic atherosclerosis. No aortic aneurysm is seen. No pericardial effusion is seen.MEDIASTINUM AND SHELIA: No mass lesion, lymphadenopathy, emphysema, or abnormal fluid collection is seen.LUNGS: The pulmonary vascularity and interstitial markings in keeping with mild CHF. There are moderate to large bilateral pleural effusions. There is extensive compressive/consolidative atelectasis of the posterior and inferior lower lobes.CHEST WALL: There are no chest wall lesions seen. Multilevel DDD is seen within the middle and distal thoracic spine, marked by disc space narrowing's and anterior marginal osteophytosis (most severe at T7-T9). There is a chronic healed fracture of the middle sternum, with approximately 3.4 mm cortical bone step-off noted. Multiple old healed right-sided rib fractures are noted. The visualized bony structures are otherwise within normal limits. No axillary lymphadenopathy is noted.UPPER ABDOMEN: Limited views through the upper abdomen demonstrate no gross acute abnormality. Approximately 3.3 cm right renal cyst noted.IMPRESSION:1. No evidence for pulmonary embolic disease.2. Coronary and aortic atherosclerosis; no aortic aneurysm or aortic dissection.3. Cardiomegaly and diffusely prominent pulmonary vascularity and interstitial markings, consistent with mild CHF or volume overload in the appropriate clinical setting. Clinical correlation is advised and appropriate follow-up evaluation is recommended.4. Moderate to large bilateral pleural effusions.5. Old healed sternal and rib fractures.6. Multilevel DDD is seen within the middle and distal thoracic spine, marked by disc space narrowing's and anterior marginal osteophytosis (most severe at T7-T9).Electronically signed by: Leonel Moya (Jan 18, 2020 21:40:13)
[2020-01-19 05:41] LABS: BASOPHILS % (AUTO) 0.1 % (0.2-1.0); HEMATOCRIT 30.4 % (36.0-47.0); HEMOGLOBIN 9.5 g/dL (12.0-16.0); LYMPHOCYTES # (AUTO) 0.4 X10^3/uL (1.3-2.9); LYMPHOCYTES % (AUTO) 6.5 % (21.0-51.0); MEAN CORPUSCULAR HGB CONC 31.2 g/dL (33.0-35.0); MEAN CORPUSCULAR VOLUME 86.7 fL (80.0-100.0); MEAN PLATELET VOLUME 8.8 fL (7.4-11.0); MONOCYTES # (AUTO) 0.4 x10^3/uL (0.3-0.8); MONOCYTES % (AUTO) 5.5 % (0.0-13.0); NEUTROPHILS # (AUTO) 5.6 x10^3/uL (2.2-4.8); NEUTROPHILS % (AUTO) 87.9 % (42.0-75.0); PLATELET COUNT 191 X10^3/uL (150.0-450.0); RED BLOOD COUNT 3.51 X10^6/uL (3.5-5.4); RED CELL DISTRIBUTION WIDTH 20.8 % (11.6-16.5); WHITE BLOOD COUNT 6.4 X10^3/uL (3.6-10.0)
[2020-01-19 06:01] LABS: ANISOCYTOSIS 2+; PLATELET MORPHOLOGY COMMENT NORMAL (NORMAL)
[2020-01-19 06:04] LABS: ALANINE AMINOTRANSFERASE 29 Units/L (12-78); ALBUMIN 2.8 g/dL (3.4-5.0); ALKALINE PHOSPHATASE 113 Units/L (46-116); ASPARTATE AMINO TRANSFERASE 51 Units/L (15-37); BLOOD UREA NITROGEN 29 mg/dL (7-18); CALCIUM 8.6 mg/dL (8.5-10.1); CARBON DIOXIDE 19.3 mmol/L (21-32); CHLORIDE 104 mmol/L (98-107); CHOL/HDL RATIO 2.8 (0.0-5.0); CHOLESTEROL 87 mg/dL (0-200); CKMB % 1.6 % (<4); COR CA(FOR HYPOALB) 9.6 mg/dL (8.5-10.1); CREATINE KINASE 164 Units/L (26-192); CREATINE KINASE MB 2.6 ng/mL (0-4.0); HDL CHOLESTEROL 31 mg/dL (40-60); SODIUM 140 mmol/L (136-145); TOTAL PROTEIN 6.6 g/dL (6.4-8.2); TRIGLYCERIDES 66 mg/dL (0-150); TROPONIN I 0.25 ng/mL (0-1.5); eGFR NON BLACK RACES 31 (>60)
[2020-01-19] MEDS ORDERED: NORCO 10/325 TAB PO PRN (07:53)
[2020-01-19] MEDS ORDERED: ZOFRAN INJ 4 MG VIAL IVP PRN (08:15)
[2020-01-19] MEDS ORDERED: LASIX IVP SCH ×2 (09:00)
[2020-01-19] MEDS ORDERED: K-DUR TAB 20 MEQ PO SCH (09:00)
--- NOTE | 2020-01-19 09:56 | DR.H&P ---
H&P History & Physical for Day of: H&P Date: 01/19/20 Chief Complaint Chief Complaint: Dyspnea, leg swelling, weakness Allergies Allergies Allergy/AdvReac Type Severity Reaction Status Date / Time No Known Drug Allergies Allergy Verified 09/26/19 14:10 History of Present Illness History of Present Illness: Ms. Horton is a 79y/o female with a PMH of atrial fibrillation on coumadin, pacemaker, HTN, HLD, chronic back pain due to DDD presented with worsening dyspnea and weakness. Patient recently had right shoulder replacement and after the surgery started having increased leg swelling and shortness of breath. She was given lasix as outpatient but reports her breathing kept getting worse. She also reports N/V/D. She states the diarrhea has stopped now but she still feels very nauseated and unable to eat much. Patient denies fever or chills, no cough. ER work-up - CXR: concerning for mild CHF, pulmonary congestion with possible atelectasis - Labs: elevated D-dimer and BNP, Hgb 10.7 BUN/Cr: 26/1.58 INR: 4.1 Trop 0.25 - CT PE: negative for PE, concerning for CHF, moderate-large pleural effusions, atelectasis She received IV lasix 40 mg in the ED. Duncan was placed for accurate output. Patient states her breathing is a lot better this AM. She is currently on 2L NC. Plan: will continue lasix 40 mg IV daily, daily weights and strict I/Os. Echo ordered. Monitor renal function and hgb. Hold warfarin for now due to elevated INR. F/U INR in the morning. Resume home medications. Hold losartan due to KACI. Change diet to full liquids, add zofran prn. Past Medical History Past Medical History: Anxiety, Arthritis, Dyslipidemia and Hypertension Additional Medical History: Atrial fibrillation Pacemaker Past Surgical History Surgical History: Carotid Endarterectomy, Cholecystectomy, Ortho Surgery and Other Family History Family Medical History: Diabetes Mellitus Social History Does patient currently use any type of tobacco product: No Have you used tobacco products in the last 12 months: No Type of Tobacco Use: None Does any household member use tobacco: No Alcohol Use: None Drug Use: None Prescription drug monitoring program results: PDMP reviewed and no concerns i dentified Medications Home Medications: No Known Drug Allergies Allergy (Verified 09/26/19 14:10) Labs Result Diagrams: 01/19/20 04:24 01/19/20 04:24 Labs: Laboratory WBC 6.4 X10^3/uL (3.6-10.0) 01/19/20 04:24 RBC 3.51 X10^6/uL (3.5-5.4) 01/19/20 04:24 Hgb 9.5 g/dL (12.0-16.0) L 01/19/20 04:24 Hct 30.4 % (36.0-47.0) L 01/19/20 04:24 MCV 86.7 fL (80.0-100.0) 01/19/20 04:24 MCH 27.0 pg (27.0-34.0) 01/19/20 04:24 MCHC 31.2 g/dL (33.0-35.0) L 01/19/20 04:24 RDW 20.8 % (11.6-16.5) H 01/19/20 04:24 Plt Count 191 X10^3/uL (150.0-450.0) 01/19/20 04:24 Plt Count Comment Adequate (ADEQUATE) 01/19/20 04:24 MPV 8.8 fL (7.4-11.0) 01/19/20 04:24 Neut % (Auto) 87.9 % (42.0-75.0) H 01/19/20 04:24 Lymph % (Auto) 6.5 % (21.0-51.0) L 01/19/20 04:24 [place] % (Auto) 5.5 % (0.0-13.0) 01/19/20 04:24 Eos % (Auto) 0.0 % (0.9-2.9) L 01/19/20 04:24 Baso % (Auto) 0.1 % (0.2-1.0) L 01/19/20 04:24 Neut # (Auto) 5.6 x10^3/uL (2.2-4.8) H 01/19/20 04:24 Lymph # (Auto) 0.4 X10^3/uL (1.3-2.9) L 01/19/20 04:24 [place] # (Auto) 0.4 x10^3/uL (0.3-0.8) 01/19/20 04:24 Eos # (Auto) 0.0 x10^3/uL (0.0-0.2) 01/19/20 04:24 Baso # (Auto) 0.0 X10^3/uL (0.0-0.1) 01/19/20 04:24 Absolute Nucleated RBC 0.8 /100WBC 01/19/20 04:24 Plt Morphology Comment Normal (NORMAL) 01/19/20 04:24 RBC Morphology Abnormal (NORMAL) A 01/19/20 04:24 Anisocytosis 2+ A 01/19/20 04:24 PT 39.2 SECONDS (11.8-14.3) 01/19/20 04:24 INR Target Range - 01/19/20 04:24 INR 4.19 (0.8-1.3) H 01/19/20 04:24 D-Dimer > 20.00 ug/ml (0.0-0.57) H* 01/18/20 18:41 Sodium 140 mmol/L (136-145) 01/19/20 04:24 Corrected Sodium TNP 01/19/20 04:24 Potassium 4.5 mmol/L (3.5-5.1) 01/19/20 04:24 Chloride 104 mmol/L (98-107) 01/19/20 04:24 Carbon Dioxide 19.3 mmol/L (21-32) L 01/19/20 04:24 BUN 29 mg/dL (7-18) H 01/19/20 04:24 Creatinine 1.70 mg/dL (0.55-1.02) H 01/19/20 04:24 Est GFR (MDRD) Af Amer 37 (>60) L 01/19/20 04:24 Est GFR (MDRD) Non-Af 31 (>60) L 01/19/20 04:24 Glucose 75 mg/dL (65-99) 01/19/20 04:24 Calcium 8.6 mg/dL (8.5-10.1) 01/19/20 04:24 Corrected Calcium 9.6 mg/dL (8.5-10.1) 01/19/20 04:24 Total Bilirubin 1.10 mg/dL (0.2-1.0) H 01/19/20 04:24 AST 51 Units/L (15-37) H 01/19/20 04:24 ALT 29 Units/L (12-78) 01/19/20 04:24 Alkaline Phosphatase 113 Units/L (46-116) 01/19/20 04:24 Creatine Kinase 164 Units/L (26-192) 01/19/20 04:24 CK-MB (CK-2) 2.6 ng/mL (0-4.0) 01/19/20 04:24 CK/CKMB % Calc 1.6 % (<4) 01/19/20 04:24 Troponin I 0.25 ng/mL (0-1.5) 01/19/20 04:24 B-Natriuretic Peptide 2480 pg/mL (0-79) H* 01/18/20 18:41 Total Protein 6.6 g/dL (6.4-8.2) 01/19/20 04:24 Albumin 2.8 g/dL (3.4-5.0) L 01/19/20 04:24 Globulin 3.8 g/dL (2.5-4.5) 01/19/20 04:24 Albumin/Globulin Ratio 0.7 Ratio (1.1-2.1) L 01/19/20 04:24 Triglycerides 66 mg/dL (0-150) 01/19/20 04:24 Cholesterol 87 mg/dL (0-200) 01/19/20 04:24 LDL Cholesterol, Calc 43 mg/dL (0-100) 01/19/20 04:24 HDL Cholesterol 31 mg/dL (40-60) L 01/19/20 04:24 Cholesterol/HDL Ratio 2.8 (0.0-5.0) 01/19/20 04:24 Specimen Type Clean catch urine 01/18/20 19:00 Urine Color Miracle (YELLOW) 01/18/20 19:00 Urine Appearance Clear (CLEAR) 01/18/20 19:00 Urine pH 5.0 (5.0 - 8.0) 01/18/20 19:00 Ur Specific [place] 1.025 (1.000-1.030) 01/18/20 19:00 Urine Protein 3+ (NEGATIVE) 01/18/20 19:00 Urine Glucose (UA) Negative (NEGATIVE) 01/18/20 19:00 Urine Ketones 1+ (NEGATIVE) 01/18/20 19:00 Urine Occult Blood 1+ (NEGATIVE) 01/18/20 19:00 Urine Nitrite Negative (NEGATIVE) 01/18/20 19:00 Urine Bilirubin 1+ (NEGATIVE) 01/18/20 19:00 Urine Urobilinogen 2+ (NORMAL) 01/18/20 19:00 Ur Leukocyte Esterase 2+ (NEGATIVE) 01/18/20 19:00 Urine RBC 0-2 /HPF (0-3) 01/18/20 19:00 Urine WBC 3-5 /HPF (0-5) 01/18/20 19:00 Ur Squamous Epith Cells Few /HPF (NEGATIVE) 01/18/20 19:00 Amorphous Sediment 1+ /HPF (NEGATIVE) 01/18/20 19:00 Urine Bacteria Negative /HPF (NEGATIVE) 01/18/20 19:00 Hyaline Casts Rare /LPF (NEGATIVE) 01/18/20 19:00 Ur Culture Indicated? No/not indicated 01/18/20 19:00 SARS-CoV-2 (PCR) Negative (NEGATIVE) 01/18/20 20:32 Review of Systems Constitutional: Weakness Eyes: No Symptoms Reported ENT: No Symptoms Reported Respiratory: Shortness of Breath and SOB with Excertion Cardiovascular: Orthopnea and Edema Gastrointestinal: Nausea, Vomiting and Diarrhea Genitourinary: No Symptoms Reported Musculoskeletal: Shoulder Pain, Back Pain and Foot Pain Skin: No Symptoms Reported Neurological: No Symptoms Reported Physical Exam Vital Signs: Temperature 98.3 F Pulse Rate [Left Brachial] 89 Pulse Rate 65 Respiratory Rate 18 Blood Pressure [Right Arm] 132/64 Blood Pressure [Left Arm] 148/73 Blood Pressure 160/72 O2 Sat by Pulse Oximetry 94 Oriented: Normal Eyes: Normal Ear: Normal Nose: Normal Respiratory: Rales Throughout Cardiovascular: Normal and Edema Auscultation: Bowel Sounds: Normal Palpation: Normal Tenderness: Normal Skin: Decreased Turgur Musculoskeletal: Right, Shoulder, Back:Thoracic and Back:Paraspinous Psychiatric: Normal Mood Description: Calm Affect: Normal Speech Pattern: Clear and Appropriate Assessment/Plan (1) KACI (acute kidney injury): Status: Acute (2) Acute exacerbation of CHF (congestive heart failure): Status: Acute (3) Anemia: Qualifiers: Anemia type: iron deficiency Iron deficiency anemia type: unspecified iron deficiency Qualified Code(s): D50.9 - Iron deficiency anemia, unspecified Status: Acute (4) Bilateral pleural effusion: Status: Acute (5) Osteoarthritis: Qualifiers: Osteoarthritis location: multiple joints Osteoarthritis type: unspecified Qualified Code(s): M15.9 - Polyosteoarthritis, unspecified Status: Acute (6) Chronic back pain: Qualifiers: Back pain laterality: midline Back pain location: low back pain Sciatica presence: unspecified whether sciatica present Qualified Code(s): M54.5 - Low back pain; G89.29 - Other chronic pain; G89.29 - Other chronic pain Status: Acute (7) History of atrial fibrillation: Status: Acute (8) Hypertension: Qualifiers: Hypertension type: essential hypertension Qualified Code(s): I10 - E ssential (primary) hypertension Status: Acute Review H&P Reviewed: Yes Patient was examined?: Yes
[2020-01-19] MEDS: PriLOSEC PO SCH (10:25)
[2020-01-19] MEDS: ZEBETA TAB 5 MG PO SCH (10:25)
[2020-01-19 11:55] LABS: CKMB % 2.2 % (<4); CREATINE KINASE MB 3.6 ng/mL (0-4.0); TROPONIN I 0.23 ng/mL (0-1.5)
[2020-01-19] MEDS: FERROUS GLUCONATE PO SCH (16:53)
[2020-01-19] MEDS: DUONEB 0.5 MG/3 MG (3 mL) NEB SCH ×2 (16:56→21:22)
[2020-01-19] MEDS ORDERED: NEURONTIN CAP 100 MG ONE (19:16)
[2020-01-19] MEDS ORDERED: ZOCOR TAB 40 MG PO ONE (19:16)
[2020-01-19] MEDS: ZOCOR TAB 40 MG PO SCH (20:39)
[2020-01-19] MEDS: NEURONTIN CAP 100 MG PO SCH (20:39)
--- NOTE | 2020-01-20 04:49 | RAD ---
HISTORYHYPOXIASTUDYCHEST, 1 [id number]/2020FINDINGSThe trachea is midline. The cardiac silhouette is mildly enlarged, similar to prior exam.. Central pulmonary vascular congestion, slightly increased compared to prior exam. Bilateral pleural effusions and basilar atelectasis/infiltrates. Left chest wall cardiac pacer stable in position. Osseous structures are unchanged..IMPRESSIONCardiomegaly and interval increase in central pulmonary vascular congestion/edema.Bilateral pleural effusion and basilar atelectasis/infiltrates.Electronically signed by: Saadia Wisdom (Jan 20, 2020 04:48:32)
[2020-01-20 05:41] LABS: BLOOD UREA NITROGEN 30 mg/dL (7-18); CALCIUM 8.3 mg/dL (8.5-10.1); CARBON DIOXIDE 26.9 mmol/L (21-32); CHLORIDE 106 mmol/L (98-107); CREATININE 1.76 mg/dL (0.55-1.02); SODIUM 141 mmol/L (136-145); eGFR NON BLACK RACES 30 (>60)
[2020-01-20 06:07] LABS: BASOPHILS % (AUTO) 0.5 % (0.2-1.0); EOSINOPHILS # (AUTO) 0.1 x10^3/uL (0.0-0.2); EOSINOPHILS % (AUTO) 1.4 % (0.9-2.9); HEMATOCRIT 29.2 % (36.0-47.0); HEMOGLOBIN 9.3 g/dL (12.0-16.0); LYMPHOCYTES # (AUTO) 0.4 X10^3/uL (1.3-2.9); LYMPHOCYTES % (AUTO) 8.8 % (21.0-51.0); MEAN CORPUSCULAR HEMOGLOBIN 27.2 pg (27.0-34.0); MEAN PLATELET VOLUME 8.1 fL (7.4-11.0); MONOCYTES # (AUTO) 0.4 x10^3/uL (0.3-0.8); MONOCYTES % (AUTO) 8.1 % (0.0-13.0); NEUTROPHILS # (AUTO) 4.1 x10^3/uL (2.2-4.8); NEUTROPHILS % (AUTO) 81.2 % (42.0-75.0); PLATELET COUNT 176 X10^3/uL (150.0-450.0); RED BLOOD COUNT 3.44 X10^6/uL (3.5-5.4); RED CELL DISTRIBUTION WIDTH 19.9 % (11.6-16.5)
[2020-01-20] MEDS: FERROUS GLUCONATE PO SCH ×2 (06:09→16:38)
--- NOTE | 2020-01-20 08:21 | PCM.PROG ---
Progress Note Progress Note for Day of Date of Exam: 01/20/20 Subjective Subjective: Patient seen at bedside, no overnight events. Patient states she feels slightly better. She is on 2L NC. She is eating breakfast. She reports nausea has improved and she is tolerating her diet. Denies diarrhea. She states her breathing is better. Patient has slight dry cough, denies fever or chills. UOP: 1550/24 hrs Labs: Hgb 9.3 BUN/CrL 30/1.76 INR 4.47 CXR: worsening pulmonary congestion, pleural effusions noted, concern for atelectasis/infiltrates. ECHO: EF 57%, mod-severe pulmonary HTN, mild-mod MR and AR Plan: will increase IV lasix to 40 mg BID, strict I/Os, monitor UOP. Will add Rocephin for possible pneumonia. Wean O2 as tolerated, continue duonebs. Monitor AM labs. Continue to hold coumadin due to elevated INR. Past Medical Family Social History Past Med/Fam/Surg Hx: No changes since H&P Allergies: Allergies No Known Drug Allergies Allergy (Verified 09/26/19 14:10) Review of Systems ROS: No change since H&P Vital Signs and I&O's Vital Signs: Temperature 98.8 F Pulse Rate [Left Brachial] 65 Pulse Rate 65 Respiratory Rate 18 Blood Pressure [Right Arm] 132/68 Blood Pressure [Left Arm] 148/73 Blood Pressure 160/72 O2 Sat by Pulse Oximetry 96 Intake and Output: Intake & Output 01/17/20 01/18/20 01/19/20 01/20/20 23:59 23:59 23:59 23:59 Intake Total 650 / 650 560 / 560 Output Total 1550 / 1550 350 / 350 Balance -900 / -900 210 / 210 Physical Exam Oriented: Normal Eyes: Normal Ear: Normal Nose: Normal Respiratory: Generalized and Rales Cardiovascular: Normal and Edema Auscultation: Bowel Sounds: Normal Tenderness: Normal Skin: Decreased Turgur Musculoskeletal: Right, Shoulder, Back:Thoracic and Back:Paraspinous Psychiatric: Normal Mood Description: Calm Affect: Normal Speech Pattern: Clear and Appropriate Laboratory and Diagnostics Result Diagrams: 01/20/20 04:26 01/20/20 04:26 Labs: Laboratory WBC 5.0 X10^3/uL (3.6-10.0) 01/20/20 04:26 RBC 3.44 X10^6/uL (3.5-5.4) L 01/20/20 04:26 Hgb 9.3 g/dL (12.0-16.0) L 01/20/20 04:26 Hct 29.2 % (36.0-47.0) L 01/20/20 04:26 MCV 85.0 fL (80.0-100.0) 01/20/20 04:26 MCH 27.2 pg (27.0-34.0) 01/20/20 04:26 MCHC 32.0 g/dL (33.0-35.0) L 01/20/20 04:26 RDW 19.9 % (11.6-16.5) H 01/20/20 04:26 Plt Count 176 X10^3/uL (150.0-450.0) 01/20/20 04:26 Plt Count Comment Adequate (ADEQUATE) 01/19/20 04:24 MPV 8.1 fL (7.4-11.0) 01/20/20 04:26 Neut % (Auto) 81.2 % (42.0-75.0) H 01/20/20 04:26 Lymph % (Auto) 8.8 % (21.0-51.0) L 01/20/20 04:26 [place] % (Auto) 8.1 % (0.0-13.0) 01/20/20 04:26 Eos % (Auto) 1.4 % (0.9-2.9) 01/20/20 04:26 Baso % (Auto) 0.5 % (0.2-1.0) 01/20/20 04:26 Neut # (Auto) 4.1 x10^3/uL (2.2-4.8) 01/20/20 04:26 Lymph # (Auto) 0.4 X10^3/uL (1.3-2.9) L 01/20/20 04:26 [place] # (Auto) 0.4 x10^3/uL (0.3-0.8) 01/20/20 04:26 Eos # (Auto) 0.1 x10^3/uL (0.0-0.2) 01/20/20 04:26 Baso # (Auto) 0.0 X10^3/uL (0.0-0.1) 01/20/20 04:26 Absolute Nucleated RBC 0.3 /100WBC 01/20/20 04:26 Plt Morphology Comment Normal (NORMAL) 01/19/20 04:24 RBC Morphology Abnormal (NORMAL) A 01/19/20 04:24 Anisocytosis 2+ A 01/19/20 04:24 PT 41.2 SECONDS (11.8-14.3) 01/20/20 04:26 INR Target Range - 01/20/20 04:26 INR 4.47 (0.8-1.3) H 01/20/20 04:26 D-Dimer > 20.00 ug/ml (0.0-0.57) H* 01/18/20 18:41 Sodium 141 mmol/L (136-145) 01/20/20 04:26 Corrected Sodium TNP 01/20/20 04:26 Potassium 3.8 mmol/L (3.5-5.1) 01/20/20 04:26 Chloride 106 mmol/L (98-107) 01/20/20 04:26 Carbon Dioxide 26.9 mmol/L (21-32) 01/20/20 04:26 BUN 30 mg/dL (7-18) H 01/20/20 04:26 Creatinine 1.76 mg/dL (0.55-1.02) H 01/20/20 04:26 Est GFR (MDRD) Af Amer 36 (>60) L 01/20/20 04:26 Est GFR (MDRD) Non-Af 30 (>60) L 01/20/20 04:26 Glucose 108 mg/dL (65-99) H 01/20/20 04:26 Calcium 8.3 mg/dL (8.5-10.1) L 01/20/20 04:26 Corrected Calcium 9.6 mg/dL (8.5-10.1) 01/19/20 04:24 Total Bilirubin 1.10 mg/dL (0.2-1.0) H 01/19/20 04:24 AST 51 Units/L (15-37) H 01/19/20 04:24 ALT 29 Units/L (12-78) 01/19/20 04:24 Alkaline Phosphatase 113 Units/L (46-116) 01/19/20 04:24 Creatine Kinase 163 Units/L (26-192) 01/19/20 11:12 CK-MB (CK-2) 3.6 ng/mL (0-4.0) 01/19/20 11:12 CK/CKMB % Calc 2.2 % (<4) 01/19/20 11:12 Troponin I 0.23 ng/mL (0-1.5) 01/19/20 11:12 B-Natriuretic Peptide 2480 pg/mL (0-79) H* 01/18/20 18:41 Total Protein 6.6 g/dL (6.4-8.2) 01/19/20 04:24 Albumin 2.8 g/dL (3.4-5.0) L 01/19/20 04:24 Globulin 3.8 g/dL (2.5-4.5) 01/19/20 04:24 Albumin/Globulin Ratio 0.7 Ratio (1.1-2.1) L 01/19/20 04:24 Triglycerides 66 mg/dL (0-150) 01/19/20 04:24 Cholesterol 87 mg/dL (0-200) 01/19/20 04:24 LDL Cholesterol, Calc 43 mg/dL (0-100) 01/19/20 04:24 HDL Cholesterol 31 mg/dL (40-60) L 01/19/20 04:24 Cholesterol/HDL Ratio 2.8 (0.0-5.0) 01/19/20 04:24 Specimen Type Clean catch urine 01/18/20 19:00 Urine Color Miracle (YELLOW) 01/18/20 19:00 Urine Appearance Clear (CLEAR) 01/18/20 19:00 Urine pH 5.0 (5.0 - 8.0) 01/18/20 19:00 Ur Specific [place] 1.025 (1.000-1.030) 01/18/20 19:00 Urine Protein 3+ (NEGATIVE) 01/18/20 19:00 Urine Glucose (UA) Negative (NEGATIVE) 01/18/20 19:00 Urine Ketones 1+ (NEGATIVE) 01/18/20 19:00 Urine Occult Blood 1+ (NEGATIVE) 01/18/20 19:00 Urine Nitrite Negative (NEGATIVE) 01/18/20 19:00 Urine Bilirubin 1+ (NEGATIVE) 01/18/20 19:00 Urine Urobilinogen 2+ (NORMAL) 01/18/20 19:00 Ur Leukocyte Esterase 2+ (NEGATIVE) 01/18/20 19:00 Urine RBC 0-2 /HPF (0-3) 01/18/20 19:00 Urine WBC 3-5 /HPF (0-5) 01/18/20 19:00 Ur Squamous Epith Cells Few /HPF (NEGATIVE) 01/18/20 19:00 Amorphous Sediment 1+ /HPF (NEGATIVE) 01/18/20 19:00 Urine Bacteria Negative /HPF (NEGATIVE) 01/18/20 19:00 Hyaline Casts Rare /LPF (NEGATIVE) 01/18/20 19:00 Ur Culture Indicated? No/not indicated 01/18/20 19:00 SARS-CoV-2 (PCR) Negative (NEGATIVE) 01/18/20 20:32 Plan (1) KACI (acute kidney injury): Status: Acute (2) Acute exacerbation of CHF (congestive heart failure): Status: Acute (3) Anemia: Status: Acute Qualifiers: Anemia type: iron deficiency Iron deficiency anemia type: unspecified iron deficiency Qualified Code(s): D50.9 - Iron deficiency anemia, unspecified (4) Pulmonary hypertension: Status: Acute (5) Elevated INR: Status: Acute (6) Bilateral pleural effusion: Status: Acute (7) Pulmonary infiltrate: Status: Acute (8) Osteoarthritis: Status: Acute Qualifiers: Osteoarthritis location: multiple joints Osteoarthritis type: unspecified Qualified Code(s): M15.9 - Polyosteoarthritis, unspecified (9) Chronic back pain: Status: Acute Qualifiers: Back pain laterality: midline Back pain location: low back pain Sciatica presence: unspecified whether sciatica present Qualified Code(s): M54.5 - Low back pain; G89.29 - Other chronic pain; G89.29 - Other chronic pain (10) History of atrial fibrillation: Status: Acute (11) Hypertension: Status: Acute Qualifiers: Hypertension type: essential hypertension Qualified Code(s): I10 - Essential (primary) hypertension (12) Atrial fibrillation: Status: Acute Qualifiers: Atrial fibrillation type: unspecified Qualified Code(s): I48.91 - Unspecified atrial fibrillation (13) Pacemaker: Status: Acute
[2020-01-20] MEDS: DUONEB 0.5 MG/3 MG (3 mL) NEB SCH ×2 (09:15→21:12)
[2020-01-20] MEDS: LASIX IVP SCH ×3 (09:42→20:36)
[2020-01-20] MEDS: ZEBETA TAB 5 MG PO SCH (09:43)
[2020-01-20] MEDS: PriLOSEC PO SCH (09:43)
[2020-01-20] MEDS ORDERED: ROCEPHIN VIAL 1 GRAM ONE (09:45)
[2020-01-20] MEDS ORDERED: NS 100 ML IV 100 ML IV ONE (09:45)
[2020-01-20] MEDS: ROCEPHIN VIAL 1 GRAM 1 G in NS 100 ML IV + SPIKE MINIBAG* 100 ML IV SCH ×2 (09:54→09:55)
[2020-01-20] MEDS: NEURONTIN CAP 100 MG PO SCH (20:36)
[2020-01-20] MEDS: ZOCOR TAB 40 MG PO SCH (20:36)
[2020-01-21 05:39] LABS: BASOPHILS % (AUTO) 0.6 % (0.2-1.0); EOSINOPHILS # (AUTO) 0.2 x10^3/uL (0.0-0.2); EOSINOPHILS % (AUTO) 5.2 % (0.9-2.9); HEMATOCRIT 29.2 % (36.0-47.0); HEMOGLOBIN 9.2 g/dL (12.0-16.0); LYMPHOCYTES # (AUTO) 0.4 X10^3/uL (1.3-2.9); LYMPHOCYTES % (AUTO) 10.5 % (21.0-51.0); MEAN CORPUSCULAR HGB CONC 31.4 g/dL (33.0-35.0); MEAN CORPUSCULAR VOLUME 85.8 fL (80.0-100.0); MEAN PLATELET VOLUME 8.5 fL (7.4-11.0); MONOCYTES # (AUTO) 0.4 x10^3/uL (0.3-0.8); MONOCYTES % (AUTO) 9.5 % (0.0-13.0); NEUTROPHILS % (AUTO) 74.2 % (42.0-75.0); PLATELET COUNT 154 X10^3/uL (150.0-450.0); RED CELL DISTRIBUTION WIDTH 20.9 % (11.6-16.5); WHITE BLOOD COUNT 4.1 X10^3/uL (3.6-10.0)
[2020-01-21 05:44] LABS: BLOOD UREA NITROGEN 22 mg/dL (7-18); CALCIUM 8.3 mg/dL (8.5-10.1); CARBON DIOXIDE 31.3 mmol/L (21-32); CHLORIDE 108 mmol/L (98-107); CREATININE 1.46 mg/dL (0.55-1.02); SODIUM 144 mmol/L (136-145); eGFR NON BLACK RACES 37 (>60)
[2020-01-21 05:48] LABS: PLATELET MORPHOLOGY COMMENT NORMAL (NORMAL)
[2020-01-21 05:49] LABS: ANISOCYTOSIS 1+
[2020-01-21] MEDS ORDERED: K-DUR TAB 20 MEQ PO PRN (05:58)
[2020-01-21] MEDS ORDERED: KLOR-CON PO PRN (05:58)
[2020-01-21] MEDS ORDERED: POTASSIUM CHLORIDE LIQ 20 MEQ UDC PO PRN (05:58)
[2020-01-21] MEDS ORDERED: POTASSIUM CHL 60 MEQ/NS 0.45% 500 ML IV PRN (05:58)
[2020-01-21] MEDS ORDERED: POTASSIUM CHL 40 MEQ/NS 0.45% 500 ML IV PRN (05:58)
[2020-01-21] MEDS ORDERED: K-RIDER 10 MEQ/NS 100 ML 10 MEQ/100 ML BAG IV PRN (05:58)
[2020-01-21] MEDS ORDERED: MICRO K EXTEN CAP 10 MEQ PO PRN (05:58)
[2020-01-21] MEDS: FERROUS GLUCONATE PO SCH ×2 (06:07→17:40)
[2020-01-21] MEDS ORDERED: CHLORASEPTIC SPRAY MT PRN (08:09)
[2020-01-21] MEDS ORDERED: CEPACOL SORE THROAT LOZ MT PRN (08:10)
--- NOTE | 2020-01-21 08:14 | PCM.PROG ---
Progress Note Progress Note for Day of Date of Exam: 01/21/20 Subjective Subjective: Patient seen at bedside, no overnight events. She is doing a lot better. She is currently on 2L, reports improvement in breathing. Her leg swelling has improved. She states nausea is better, able to tolerate diet. Denies vomiting. She does report productive cough and sore throat today. Denies fever or chills. Labs: Hgb 9.2 BUN/Cr: 22/1.46 K: 3.4 INR: 3.68 Prev CXR: worsening pulmonary congestion, pleural effusions noted, concern for atelectasis/infiltrates. ECHO: EF 57%, mod-severe pulmonary HTN, mild-mod MR and AR Plan: will continue lasix IV BID, remove cali, continue Rocephin and duonebs. Check for strep. Wean O2 as tolerated. Monitor UOP and AM labs. Follow culture. Will resume coumadin tomorrow. Past Medical Family Social History Past Med/Fam/Surg Hx: No changes since H&P Allergies: Allergies No Known Drug Allergies Allergy (Verified 09/26/19 14:10) Review of Systems ROS: No change since H&P Vital Signs and I&O's Vital Signs: Temperature 97.4 F Pulse Rate [Left Brachial] 65 Pulse Rate 68 Respiratory Rate 20 Blood Pressure [Right Arm] 118/64 Blood Pressure [Left Arm] 148/73 Blood Pressure 160/72 O2 Sat by Pulse Oximetry 95 Intake and Output: Intake & Output 01/18/20 01/19/20 01/20/20 01/21/20 23:59 23:59 23:59 23:59 Intake Total 650 / 650 1430 / 1430 Output Total 1550 / 1550 2550 / 2550 400 / 400 Balance -900 / -900 -1120 / -1120 -390 / -390 Physical Exam Oriented: Normal Eyes: Normal Ear: Normal Nose: Normal Respiratory: Generalized and Rales (improved ) Cardiovascular: Normal and Edema Auscultation: Bowel Sounds: Normal Tenderness: Normal Skin: Decreased Turgur Musculoskeletal: Right, Shoulder, Back:Thoracic and Back:Paraspinous Psychiatric: Normal Mood Description: Calm Affect: Normal Speech Pattern: Clear and Appropriate Laboratory and Diagnostics Result Diagrams: 01/21/20 04:10 01/21/20 04:10 Labs: Laboratory WBC 4.1 X10^3/uL (3.6-10.0) 01/21/20 04:10 RBC 3.40 X10^6/uL (3.5-5.4) L 01/21/20 04:10 Hgb 9.2 g/dL (12.0-16.0) L 01/21/20 04:10 Hct 29.2 % (36.0-47.0) L 01/21/20 04:10 MCV 85.8 fL (80.0-100.0) 01/21/20 04:10 MCH 27.0 pg (27.0-34.0) 01/21/20 04:10 MCHC 31.4 g/dL (33.0-35.0) L 01/21/20 04:10 RDW 20.9 % (11.6-16.5) H 01/21/20 04:10 Plt Count 154 X10^3/uL (150.0-450.0) 01/21/20 04:10 Plt Count Comment Adequate (ADEQUATE) 01/21/20 04:10 MPV 8.5 fL (7.4-11.0) 01/21/20 04:10 Neut % (Auto) 74.2 % (42.0-75.0) 01/21/20 04:10 Lymph % (Auto) 10.5 % (21.0-51.0) L 01/21/20 04:10 [place] % (Auto) 9.5 % (0.0-13.0) 01/21/20 04:10 Eos % (Auto) 5.2 % (0.9-2.9) H 01/21/20 04:10 Baso % (Auto) 0.6 % (0.2-1.0) 01/21/20 04:10 Neut # (Auto) 3.0 x10^3/uL (2.2-4.8) 01/21/20 04:10 Lymph # (Auto) 0.4 X10^3/uL (1.3-2.9) L 01/21/20 04:10 [place] # (Auto) 0.4 x10^3/uL (0.3-0.8) 01/21/20 04:10 Eos # (Auto) 0.2 x10^3/uL (0.0-0.2) 01/21/20 04:10 Baso # (Auto) 0.0 X10^3/uL (0.0-0.1) 01/21/20 04:10 Absolute Nucleated RBC 0.2 /100WBC 01/21/20 04:10 Plt Morphology Comment Normal (NORMAL) 01/21/20 04:10 RBC Morphology Abnormal (NORMAL) A 01/21/20 04:10 Anisocytosis 1+ A 01/21/20 04:10 PT 35.5 SECONDS (11.8-14.3) 01/21/20 04:10 INR Target Range - 01/21/20 04:10 INR 3.68 (0.8-1.3) H 01/21/20 04:10 D-Dimer > 20.00 ug/ml (0.0-0.57) H* 01/18/20 18:41 Sodium 144 mmol/L (136-145) 01/21/20 04:10 Corrected Sodium TNP 01/21/20 04:10 Potassium 3.4 mmol/L (3.5-5.1) L 01/21/20 04:10 Chloride 108 mmol/L (98-107) H 01/21/20 04:10 Carbon Dioxide 31.3 mmol/L (21-32) 01/21/20 04:10 BUN 22 mg/dL (7-18) H 01/21/20 04:10 Creatinine 1.46 mg/dL (0.55-1.02) H 01/21/20 04:10 Est GFR (MDRD) Af Amer 44 (>60) L 01/21/20 04:10 Est GFR (MDRD) Non-Af 37 (>60) L 01/21/20 04:10 Glucose 100 mg/dL (65-99) H 01/21/20 04:10 Calcium 8.3 mg/dL (8.5-10.1) L 01/21/20 04:10 Corrected Calcium 9.6 mg/dL (8.5-10.1) 01/19/20 04:24 Magnesium 1.7 mg/dL (1.7-2.9) 01/21/20 04:10 Total Bilirubin 1.10 mg/dL (0.2-1.0) H 01/19/20 04:24 AST 51 Units/L (15-37) H 01/19/20 04:24 ALT 29 Units/L (12-78) 01/19/20 04:24 Alkaline Phosphatase 113 Units/L (46-116) 01/19/20 04:24 Creatine Kinase 163 Units/L (26-192) 01/19/20 11:12 CK-MB (CK-2) 3.6 ng/mL (0-4.0) 01/19/20 11:12 CK/CKMB % Calc 2.2 % (<4) 01/19/20 11:12 Troponin I 0.23 ng/mL (0-1.5) 01/19/20 11:12 B-Natriuretic Peptide 2480 pg/mL (0-79) H* 01/18/20 18:41 Total Protein 6.6 g/dL (6.4-8.2) 01/19/20 04:24 Albumin 2.8 g/dL (3.4-5.0) L 01/19/20 04:24 Globulin 3.8 g/dL (2.5-4.5) 01/19/20 04:24 Albumin/Globulin Ratio 0.7 Ratio (1.1-2.1) L 01/19/20 04:24 Triglycerides 66 mg/dL (0-150) 01/19/20 04:24 Cholesterol 87 mg/dL (0-200) 01/19/20 04:24 LDL Cholesterol, Calc 43 mg/dL (0-100) 01/19/20 04:24 HDL Cholesterol 31 mg/dL (40-60) L 01/19/20 04:24 Cholesterol/HDL Ratio 2.8 (0.0-5.0) 01/19/20 04:24 Specimen Type Clean catch urine 01/18/20 19:00 Urine Color Miracle (YELLOW) 01/18/20 19:00 Urine Appearance Clear (CLEAR) 01/18/20 19:00 Urine pH 5.0 (5.0 - 8.0) 01/18/20 19:00 Ur Specific [place] 1.025 (1.000-1.030) 01/18/20 19:00 Urine Protein 3+ (NEGATIVE) 01/18/20 19:00 Urine Glucose (UA) Negative (NEGATIVE) 01/18/20 19:00 Urine Ketones 1+ (NEGATIVE) 01/18/20 19:00 Urine Occult Blood 1+ (NEGATIVE) 01/18/20 19:00 Urine Nitrite Negative (NEGATIVE) 01/18/20 19:00 Urine Bilirubin 1+ (NEGATIVE) 01/18/20 19:00 Urine Urobilinogen 2+ (NORMAL) 01/18/20 19:00 Ur Leukocyte Esterase 2+ (NEGATIVE) 01/18/20 19:00 Urine RBC 0-2 /HPF (0-3) 01/18/20 19:00 Urine WBC 3-5 /HPF (0-5) 01/18/20 19:00 Ur Squamous Epith Cells Few /HPF (NEGATIVE) 01/18/20 19:00 Amorphous Sediment 1+ /HPF (NEGATIVE) 01/18/20 19:00 Urine Bacteria Negative /HPF (NEGATIVE) 01/18/20 19:00 Hyaline Casts Rare /LPF (NEGATIVE) 01/18/20 19:00 Ur Culture Indicated? No/not indicated 01/18/20 19:00 SARS-CoV-2 (PCR) Negative (NEGATIVE) 01/18/20 20:32 Plan (1) KACI (acute kidney injury): Status: Acute (2) Acute exacerbation of CHF (congestive heart failure): Status: Acute (3) Anemia: Status: Acute Qualifiers: Anemia type: iron deficiency Iron deficiency anemia type: unspecified iron deficiency Qualified Code(s): D50.9 - Iron deficiency anemia, unspecified (4) Pulmonary hypertension: Status: Acute (5) Elevated INR: Status: Acute (6) Bilateral pleural effusion: Status: Acute (7) Pulmonary infiltrate: Status: Acute (8) Osteoarthritis: Status: Acute Qualifiers: Osteoarthritis location: multiple joints Osteoarthritis type: unspecified Qualified Code(s): M15.9 - Polyosteoarthritis, unspecified (9) Chronic back pain: Status: Acute Qualifiers: Back pain laterality: midline Back pain location: low back pain Sciatica presence: unspecified whether sciatica present Qualified Code(s): M54.5 - Low back pain; G89.29 - Other chronic pain; G89.29 - Other chronic pain (10) History of atrial fibrillation: Status: Acute (11) Hypertension: Status: Acute Qualifiers: Hypertension type: essential hypertension Qualified Code(s): I10 - Essential (primary) hypertension (12) Atrial fibrillation: Status: Acute Qualifiers: Atrial fibrillation type: unspecified Qualified Code(s): I48.91 - Unspecified atrial fibrillation (13) Pacemaker: Status: Acute
[2020-01-21] MEDS: ROCEPHIN VIAL 1 GRAM 1 G in NS 100 ML IV + SPIKE MINIBAG* 100 ML IV SCH (08:17)
[2020-01-21] MEDS: LASIX IVP SCH ×2 (08:17→20:46)
[2020-01-21] MEDS: PriLOSEC PO SCH (08:17)
[2020-01-21] MEDS: ZEBETA TAB 5 MG PO SCH (08:18)
[2020-01-21] MEDS: DUONEB 0.5 MG/3 MG (3 mL) NEB SCH ×2 (09:18→21:00)
[2020-01-21] MEDS: NEURONTIN CAP 100 MG PO SCH (20:46)
[2020-01-21] MEDS: ZOCOR TAB 40 MG PO SCH (20:46)
[2020-01-21] MEDS: MAGNESIUM SULFATE 1 GRAM/100 mL PREMIX 1 GM/100 ML BAG IV PRN ×2 (20:53→22:15)
[2020-01-22 05:31] LABS: BASOPHILS % (AUTO) 0.9 % (0.2-1.0); EOSINOPHILS # (AUTO) 0.2 x10^3/uL (0.0-0.2); EOSINOPHILS % (AUTO) 6.2 % (0.9-2.9); HEMATOCRIT 29.3 % (36.0-47.0); HEMOGLOBIN 9.3 g/dL (12.0-16.0); LYMPHOCYTES # (AUTO) 0.4 X10^3/uL (1.3-2.9); LYMPHOCYTES % (AUTO) 11.7 % (21.0-51.0); MEAN CORPUSCULAR HEMOGLOBIN 27.1 pg (27.0-34.0); MEAN CORPUSCULAR HGB CONC 31.6 g/dL (33.0-35.0); MEAN CORPUSCULAR VOLUME 85.8 fL (80.0-100.0); MEAN PLATELET VOLUME 8.2 fL (7.4-11.0); MONOCYTES # (AUTO) 0.4 x10^3/uL (0.3-0.8); MONOCYTES % (AUTO) 10.2 % (0.0-13.0); NEUTROPHILS # (AUTO) 2.6 x10^3/uL (2.2-4.8); PLATELET COUNT 153 X10^3/uL (150.0-450.0); RED BLOOD COUNT 3.42 X10^6/uL (3.5-5.4); RED CELL DISTRIBUTION WIDTH 19.8 % (11.6-16.5); WHITE BLOOD COUNT 3.6 X10^3/uL (3.6-10.0)
[2020-01-22 05:41] LABS: CALCIUM 8.5 mg/dL (8.5-10.1); CARBON DIOXIDE 34.3 mmol/L (21-32); CREATININE 1.19 mg/dL (0.55-1.02)
[2020-01-22] MEDS: FERROUS GLUCONATE PO SCH ×2 (06:04→17:02)
[2020-01-22] MEDS ORDERED: ZOLOFT PO ONE (08:29)
[2020-01-22] MEDS: LASIX IVP SCH ×3 (08:41→21:34)
[2020-01-22] MEDS: PLAQUENIL PO SCH (08:42)
[2020-01-22] MEDS: ZOLOFT PO SCH (08:42)
[2020-01-22] MEDS: ZEBETA TAB 5 MG PO SCH (08:43)
[2020-01-22] MEDS: ROCEPHIN VIAL 1 GRAM 1 G in NS 100 ML IV + SPIKE MINIBAG* 100 ML IV SCH (08:43)
[2020-01-22] MEDS: PriLOSEC PO SCH (08:58)
--- NOTE | 2020-01-22 09:04 | RAD ---
HISTORYFOLLOW UP HYPOXIA, PULM EDEMASTUDYCHEST x-ray, 1 VIEWCOMPARISONX-ray 01/20/2020FINDINGSPacemaker leads are directed towards the right atrial appendage and right ventricular apex. There is cardiomegaly which may be slightly improved from prior study. Persistent pulmonary edema and pleural effusions are likely improved, also. No pneumothorax is seen.IMPRESSIONLikely mild improvement of CHF, pulmonary edema, and pleural effusions.Electronically signed by: Barry Pandey (Jan 22, 2020 09:02:45)
[2020-01-22] MEDS: DUONEB 0.5 MG/3 MG (3 mL) NEB SCH ×2 (09:40→21:00)
--- NOTE | 2020-01-22 11:20 | PCM.PROG ---
Progress Note Progress Note for Day of Date of Exam: 01/22/20 Subjective Subjective: Patient seen at bedside, no overnight events. Patient is feeling better. She is tolerating diet. She did work with PT yesterday, was not able to walk as much but did some exercises. She lives at home with her daughter and feels like she will be ok with going back home when ready for discharge. CM will discuss it further with her daughter. Labs: Hgb 9.3 BUN/Cr: 13/1.19 K: 3.4 INR: 2.18 Strep (-) ECHO: EF 57%, mod-severe pulmonary HTN, mild-mod MR and AR Plan: will decrease lasix to 20 mg IV BID, monitor UOP and AM labs. Resume warfarin today in the evening, monitor INR tomorrow. Continue Rocephin and Duonebs. Order CXR today. Continue PT/OT as tolerated. CM to discuss discharge plan with daughter. Past Medical Family Social History Past Med/Fam/Surg Hx: No changes since H&P Allergies: Allergies No Known Drug Allergies Allergy (Verified 09/26/19 14:10) Review of Systems ROS: No change since H&P Vital Signs and I&O's Vital Signs: Temperature 98.5 F Pulse Rate [Left Brachial] 67 Pulse Rate 67 Respiratory Rate 18 Blood Pressure [Right Arm] 130/63 Blood Pressure [Left Arm] 148/73 Blood Pressure 160/72 O2 Sat by Pulse Oximetry 96 Intake and Output: Intake & Output 01/19/20 01/20/20 01/21/20 01/22/20 23:59 23:59 23:59 23:59 Intake Total 650 / 650 1430 / 1430 1030 / 1030 Output Total 1550 / 1550 2550 / 2550 400 / 400 Balance -900 / -900 -1120 / -1120 630 / 630 Physical Exam Oriented: Normal Eyes: Normal Ear: Normal Nose: Normal Respiratory: Generalized and Rales (improved ) Cardiovascular: Normal and Edema Auscultation: Bowel Sounds: Normal Tenderness: Normal Skin: Decreased Turgur Musculoskeletal: Right, Shoulder, Back:Thoracic and Back:Paraspinous Psychiatric: Normal Mood Description: Calm Affect: Normal Speech Pattern: Clear and Appropriate Laboratory and Diagnostics Result Diagrams: 01/22/20 04:25 01/22/20 04:25 Labs: Laboratory WBC 3.6 X10^3/uL (3.6-10.0) 01/22/20 04:25 RBC 3.42 X10^6/uL (3.5-5.4) L 01/22/20 04:25 Hgb 9.3 g/dL (12.0-16.0) L 01/22/20 04:25 Hct 29.3 % (36.0-47.0) L 01/22/20 04:25 MCV 85.8 fL (80.0-100.0) 01/22/20 04:25 MCH 27.1 pg (27.0-34.0) 01/22/20 04:25 MCHC 31.6 g/dL (33.0-35.0) L 01/22/20 04:25 RDW 19.8 % (11.6-16.5) H 01/22/20 04:25 Plt Count 153 X10^3/uL (150.0-450.0) 01/22/20 04:25 Plt Count Comment Adequate (ADEQUATE) 01/21/20 04:10 MPV 8.2 fL (7.4-11.0) 01/22/20 04:25 Neut % (Auto) 71.0 % (42.0-75.0) 01/22/20 04:25 Lymph % (Auto) 11.7 % (21.0-51.0) L 01/22/20 04:25 [place] % (Auto) 10.2 % (0.0-13.0) 01/22/20 04:25 Eos % (Auto) 6.2 % (0.9-2.9) H 01/22/20 04:25 Baso % (Auto) 0.9 % (0.2-1.0) 01/22/20 04:25 Neut # (Auto) 2.6 x10^3/uL (2.2-4.8) 01/22/20 04:25 Lymph # (Auto) 0.4 X10^3/uL (1.3-2.9) L 01/22/20 04:25 [place] # (Auto) 0.4 x10^3/uL (0.3-0.8) 01/22/20 04:25 Eos # (Auto) 0.2 x10^3/uL (0.0-0.2) 01/22/20 04:25 Baso # (Auto) 0.0 X10^3/uL (0.0-0.1) 01/22/20 04:25 Absolute Nucleated RBC 0.0 /100WBC 01/22/20 04:25 Plt Morphology Comment Normal (NORMAL) 01/21/20 04:10 RBC Morphology Abnormal (NORMAL) A 01/21/20 04:10 Anisocytosis 1+ A 01/21/20 04:10 PT 23.6 SECONDS (11.8-14.3) 01/22/20 04:25 INR Target Range - 01/22/20 04:25 INR 2.18 (0.8-1.3) H 01/22/20 04:25 D-Dimer > 20.00 ug/ml (0.0-0.57) H* 01/18/20 18:41 Sodium 144 mmol/L (136-145) 01/22/20 04:25 Corrected Sodium 144 mmol/L (136-145) 01/22/20 04:25 Potassium 3.4 mmol/L (3.5-5.1) L 01/22/20 04:25 Chloride 104 mmol/L (98-107) 01/22/20 04:25 Carbon Dioxide 34.3 mmol/L (21-32) H 01/22/20 04:25 BUN 13 mg/dL (7-18) 01/22/20 04:25 Creatinine 1.19 mg/dL (0.55-1.02) H 01/22/20 04:25 Est GFR (MDRD) Af Amer 56 (>60) L 01/22/20 04:25 Est GFR (MDRD) Non-Af 47 (>60) L 01/22/20 04:25 Glucose 118 mg/dL (65-99) H 01/22/20 04:25 Calcium 8.5 mg/dL (8.5-10.1) 01/22/20 04:25 Corrected Calcium 9.6 mg/dL (8.5-10.1) 01/19/20 04:24 Magnesium 2.1 mg/dL (1.7-2.9) 01/22/20 04:25 Total Bilirubin 1.10 mg/dL (0.2-1.0) H 01/19/20 04:24 AST 51 Units/L (15-37) H 01/19/20 04:24 ALT 29 Units/L (12-78) 01/19/20 04:24 Alkaline Phosphatase 113 Units/L (46-116) 01/19/20 04:24 Creatine Kinase 163 Units/L (26-192) 01/19/20 11:12 CK-MB (CK-2) 3.6 ng/mL (0-4.0) 01/19/20 11:12 CK/CKMB % Calc 2.2 % (<4) 01/19/20 11:12 Troponin I 0.23 ng/mL (0-1.5) 01/19/20 11:12 B-Natriuretic Peptide 2480 pg/mL (0-79) H* 01/18/20 18:41 Total Protein 6.6 g/dL (6.4-8.2) 01/19/20 04:24 Albumin 2.8 g/dL (3.4-5.0) L 01/19/20 04:24 Globulin 3.8 g/dL (2.5-4.5) 01/19/20 04:24 Albumin/Globulin Ratio 0.7 Ratio (1.1-2.1) L 01/19/20 04:24 Triglycerides 66 mg/dL (0-150) 01/19/20 04:24 Cholesterol 87 mg/dL (0-200) 01/19/20 04:24 LDL Cholesterol, Calc 43 mg/dL (0-100) 01/19/20 04:24 HDL Cholesterol 31 mg/dL (40-60) L 01/19/20 04:24 Cholesterol/HDL Ratio 2.8 (0.0-5.0) 01/19/20 04:24 Specimen Type Clean catch urine 01/18/20 19:00 Urine Color [place] (YELLOW) 01/18/20 19:00 Urine Appearance Clear (CLEAR) 01/18/20 19:00 Urine pH 5.0 (5.0 - 8.0) 01/18/20 19:00 Ur Specific [place] 1.025 (1.000-1.030) 01/18/20 19:00 Urine Protein 3+ (NEGATIVE) 01/18/20 19:00 Urine Glucose (UA) Negative (NEGATIVE) 01/18/20 19:00 Urine Ketones 1+ (NEGATIVE) 01/18/20 19:00 Urine Occult Blood 1+ (NEGATIVE) 01/18/20 19:00 Urine Nitrite Negative (NEGATIVE) 01/18/20 19:00 Urine Bilirubin 1+ (NEGATIVE) 01/18/20 19:00 Urine Urobilinogen 2+ (NORMAL) 01/18/20 19:00 Ur Leukocyte Esterase 2+ (NEGATIVE) 01/18/20 19:00 Urine RBC 0-2 /HPF (0-3) 01/18/20 19:00 Urine WBC 3-5 /HPF (0-5) 01/18/20 19:00 Ur Squamous Epith Cells Few /HPF (NEGATIVE) 01/18/20 19:00 Amorphous Sediment 1+ /HPF (NEGATIVE) 01/18/20 19:00 Urine Bacteria Negative /HPF (NEGATIVE) 01/18/20 19:00 Hyaline Casts Rare /LPF (NEGATIVE) 01/18/20 19:00 Ur Culture Indicated? No/not indicated 01/18/20 19:00 SARS-CoV-2 (PCR) Negative (NEGATIVE) 01/18/20 20:32 S. pyogenes (TEM-PCR) Not detected (NOT DETECT) 01/21/20 18:30 Plan (1) KACI (acute kidney injury): Status: Acute (2) Acute exacerbation of CHF (congestive heart failure): Status: Acute (3) Anemia: Status: Acute Qualifiers: Anemia type: iron deficiency Iron deficiency anemia type: unspecified iron deficiency Qualified Code(s): D50.9 - Iron deficiency anemia, unspecified (4) Pulmonary hypertension: Status: Acute (5) Elevated INR: Status: Acute (6) Bilateral pleural effusion: Status: Acute (7) Pulmonary infiltrate: Status: Acute (8) Osteoarthritis: Status: Acute Qualifiers: Osteoarthritis location: multiple joints Osteoarthritis type: unspecified Qualified Code(s): M15.9 - Polyosteoarthritis, unspecified (9) Chronic back pain: Status: Acute Qualifiers: Back pain laterality: midline Back pain location: low back pain Sciatica presence: unspecified whether sciatica present Qualified Code(s): M54. 5 - Low back pain; G89.29 - Other chronic pain; G89.29 - Other chronic pain (10) History of atrial fibrillation: Status: Acute (11) Hypertension: Status: Acute Qualifiers: Hypertension type: essential hypertension Qualified Code(s): I10 - Essential (primary) hypertension (12) Atrial fibrillation: Status: Acute Qualifiers: Atrial fibrillation type: unspecified Qualified Code(s): I48.91 - Unspecified atrial fibrillation (13) Pacemaker: Status: Acute
[2020-01-22] MEDS ORDERED: PATIENT'S HOME MEDICATION (Simvastatin 40 MG Tab) PO SCH (21:00)
[2020-01-22] MEDS: COUMADIN TAB 5 MG (JANTOVEN) PO SCH (21:31)
[2020-01-22] MEDS: ZOCOR TAB 40 MG PO SCH (21:33)
[2020-01-22] MEDS: NEURONTIN CAP 100 MG PO SCH (21:33)
[2020-01-23 06:14] LABS: BASOPHILS % (AUTO) 1.1 % (0.2-1.0); EOSINOPHILS # (AUTO) 0.3 x10^3/uL (0.0-0.2); EOSINOPHILS % (AUTO) 7.8 % (0.9-2.9); HEMATOCRIT 29.6 % (36.0-47.0); HEMOGLOBIN 9.4 g/dL (12.0-16.0); LYMPHOCYTES # (AUTO) 0.5 X10^3/uL (1.3-2.9); LYMPHOCYTES % (AUTO) 15.1 % (21.0-51.0); MEAN CORPUSCULAR HEMOGLOBIN 27.2 pg (27.0-34.0); MEAN CORPUSCULAR HGB CONC 31.6 g/dL (33.0-35.0); MEAN CORPUSCULAR VOLUME 86.2 fL (80.0-100.0); MEAN PLATELET VOLUME 8.3 fL (7.4-11.0); MONOCYTES # (AUTO) 0.3 x10^3/uL (0.3-0.8); MONOCYTES % (AUTO) 9.3 % (0.0-13.0); NEUTROPHILS # (AUTO) 2.2 x10^3/uL (2.2-4.8); NEUTROPHILS % (AUTO) 66.7 % (42.0-75.0); PLATELET COUNT 156 X10^3/uL (150.0-450.0); RED BLOOD COUNT 3.44 X10^6/uL (3.5-5.4); RED CELL DISTRIBUTION WIDTH 20.3 % (11.6-16.5); WHITE BLOOD COUNT 3.3 X10^3/uL (3.6-10.0)
[2020-01-23 06:21] LABS: BLOOD UREA NITROGEN 10 mg/dL (7-18); CALCIUM 8.6 mg/dL (8.5-10.1); CARBON DIOXIDE 37.2 mmol/L (21-32); CHLORIDE 104 mmol/L (98-107); CREATININE 1.12 mg/dL (0.55-1.02); SODIUM 144 mmol/L (136-145); eGFR NON BLACK RACES 50 (>60)
[2020-01-23] MEDS: FERROUS GLUCONATE PO SCH ×2 (06:28→16:23)
[2020-01-23 06:56] LABS: ANISOCYTOSIS 1+; HYPOCHROMASIA 1+; PLATELET MORPHOLOGY COMMENT NORMAL (NORMAL)
[2020-01-23] MEDS ORDERED: LASIX PO SCH (09:00)
[2020-01-23] MEDS: DUONEB 0.5 MG/3 MG (3 mL) NEB SCH ×2 (09:00→19:59)
[2020-01-23] MEDS ORDERED: ZOLOFT PO ONE (09:26)
[2020-01-23] MEDS: ROCEPHIN VIAL 1 GRAM 1 G in NS 100 ML IV + SPIKE MINIBAG* 100 ML IV SCH (09:36)
[2020-01-23] MEDS: PriLOSEC PO SCH (09:37)
[2020-01-23] MEDS: ZEBETA TAB 5 MG PO SCH (09:37)
[2020-01-23] MEDS: PLAQUENIL PO SCH (09:39)
[2020-01-23] MEDS: ZOLOFT PO SCH (09:39)
[2020-01-23 11:33] LABS: BILIRUBIN,URINE NEGATIVE (NEGATIVE); BLOOD/HEMOGLOBIN,URINE NEGATIVE (NEGATIVE); GLUCOSE, URINE NEGATIVE (NEGATIVE); KETONES,URINE NEGATIVE (NEGATIVE); LEUKOCYTE ESTERASE ,URINE 1+ (NEGATIVE); NITRITES,URINE NEGATIVE (NEGATIVE); PROTEIN,URINE NEGATIVE (NEGATIVE); UROBILINOGEN,URINE NORMAL (NORMAL)
[2020-01-23 11:47] LABS: APPEARANCE,URINE CLEAR (CLEAR); COLOR,URINE YELLOW (YELLOW); RBC,URINE 0-2 /HPF (0-3)
[2020-01-23 11:48] LABS: BACTERIA,URINE TRACE /HPF (NEGATIVE); SQUAMOUS EPITHELIAL CELL,UR FEW /HPF (NEGATIVE)
--- NOTE | 2020-01-23 12:53 | PCM.PROG ---
Progress Note Progress Note for Day of Date of Exam: 01/23/20 Subjective Subjective: Patient seen at bedside, no overnight events. Patient is feeling better. She was able to work more with PT/OT yesterday, walked about 20 feet. She states she does get short of breath and has to rest. She denies fever or chills, no N/V/D. She does report some burning with urination since the cali was removed. She talked to her daughter yesterday and both have agreed that patient would benefit from STR placement for physical therapy. CM working on patient able to go to [facility] [place] for rehab placement. Labs: Hgb 9.4 BUN/Cr: 12/10. K: 3.6 INR: 1.48 ECHO: EF 57%, mod-severe pulmonary HTN, mild-mod MR and AR CXR yesterday: mild improvement in CHF Plan: Will switch to PO lasix 40 mg daily, monitor UOP and respiratory status, wean O2 as tolerated. Continue PT/OT. Will get a UA to check for infection. CM working on placement for rehab. Discussed patient's current treatment plan with patient's daughter Brianne via telephone. Patient can be transferred to rehab to or possibly Sunday. Past Medical Family Social History Past Med/Fam/Surg Hx: No changes since H&P Allergies: Allergies No Known Drug Allergies Allergy (Verified 09/26/19 14:10) Review of Systems ROS: No change since H&P Vital Signs and I&O's Vital Signs: Temperature 98.4 F Pulse Rate [Left Brachial] 72 Pulse Rate 67 Respiratory Rate 18 Blood Pressure [Right Arm] 158/86 Blood Pressure [Left Arm] 163/72 Blood Pressure 160/72 O2 Sat by Pulse Oximetry 100 Intake and Output: Intake & Output 01/20/20 01/21/20 01/22/20 01/23/20 23:59 23:59 23:59 23:59 Intake Total 1430 / 1430 1030 / 1030 830 / 830 70 / 70 Output Total 2550 / 2550 400 / 400 1300 / 1300 Balance -1120 / -1120 630 / 630 -470 / -470 70 / 70 Physical Exam Oriented: Normal Eyes: Normal Ear: Normal Nose: Normal Respiratory: Generalized and Rales (improved ) Cardiovascular: Normal and Edema Auscultation: Bowel Sounds: Normal Tenderness: Normal Skin: Decreased Turgur Musculoskeletal: Right, Shoulder, Back:Thoracic and Back:Paraspinous Psychiatric: Normal Mood Description: Calm Affect: Normal Speech Pattern: Clear and Appropriate Laboratory and Diagnostics Result Diagrams: 01/23/20 04:15 01/23/20 04:15 Labs: Laboratory WBC 3.3 X10^3/uL (3.6-10.0) L 01/23/20 04:15 RBC 3.44 X10^6/uL (3.5-5.4) L 01/23/20 04:15 Hgb 9.4 g/dL (12.0-16.0) L 01/23/20 04:15 Hct 29.6 % (36.0-47.0) L 01/23/20 04:15 MCV 86.2 fL (80.0-100.0) 01/23/20 04:15 MCH 27.2 pg (27.0-34.0) 01/23/20 04:15 MCHC 31.6 g/dL (33.0-35.0) L 01/23/20 04:15 RDW 20.3 % (11.6-16.5) H 01/23/20 04:15 Plt Count 156 X10^3/uL (150.0-450.0) 01/23/20 04:15 Plt Count Comment Adequate (ADEQUATE) 01/23/20 04:15 MPV 8.3 fL (7.4-11.0) 01/23/20 04:15 Neut % (Auto) 66.7 % (42.0-75.0) 01/23/20 04:15 Lymph % (Auto) 15.1 % (21.0-51.0) L 01/23/20 04:15 [place] % (Auto) 9.3 % (0.0-13.0) 01/23/20 04:15 Eos % (Auto) 7.8 % (0.9-2.9) H 01/23/20 04:15 Baso % (Auto) 1.1 % (0.2-1.0) H 01/23/20 04:15 Neut # (Auto) 2.2 x10^3/uL (2.2-4.8) 01/23/20 04:15 Lymph # (Auto) 0.5 X10^3/uL (1.3-2.9) L 01/23/20 04:15 [place] # (Auto) 0.3 x10^3/uL (0.3-0.8) 01/23/20 04:15 Eos # (Auto) 0.3 x10^3/uL (0.0-0.2) H 01/23/20 04:15 Baso # (Auto) 0.0 X10^3/uL (0.0-0.1) 01/23/20 04:15 Absolute Nucleated RBC 0.0 /100WBC 01/23/20 04:15 Plt Morphology Comment Normal (NORMAL) 01/23/20 04:15 RBC Morphology Abnormal (NORMAL) A 01/23/20 04:15 Hypochromasia 1+ A 01/23/20 04:15 Anisocytosis 1+ A 01/23/20 04:15 PT 17.5 SECONDS (11.8-14.3) 01/23/20 04:15 INR Target Range - 01/23/20 04:15 INR 1.48 (0.8-1.3) H 01/23/20 04:15 D-Dimer > 20.00 ug/ml (0.0-0.57) H* 01/18/20 18:41 Sodium 144 mmol/L (136-145) 01/23/20 04:15 Corrected Sodium TNP 01/23/20 04:15 Potassium 3.6 mmol/L (3.5-5.1) 01/23/20 04:15 Chloride 104 mmol/L (98-107) 01/23/20 04:15 Carbon Dioxide 37.2 mmol/L (21-32) H 01/23/20 04:15 BUN 10 mg/dL (7-18) 01/23/20 04:15 Creatinine 1.12 mg/dL (0.55-1.02) H 01/23/20 04:15 Est GFR (MDRD) Af Amer > 60 (>60) 01/23/20 04:15 Est GFR (MDRD) Non-Af 50 (>60) L 01/23/20 04:15 Glucose 80 mg/dL (65-99) 01/23/20 04:15 Calcium 8.6 mg/dL (8.5-10.1) 01/23/20 04:15 Corrected Calcium 9.6 mg/dL (8.5-10.1) 01/19/20 04:24 Magnesium 2.1 mg/dL (1.7-2.9) 01/22/20 04:25 Total Bilirubin 1.10 mg/dL (0.2-1.0) H 01/19/20 04:24 AST 51 Units/L (15-37) H 01/19/20 04:24 ALT 29 Units/L (12-78) 01/19/20 04:24 Alkaline Phosphatase 113 Units/L (46-116) 01/19/20 04:24 Creatine Kinase 163 Units/L (26-192) 01/19/20 11:12 CK-MB (CK-2) 3.6 ng/mL (0-4.0) 01/19/20 11:12 CK/CKMB % Calc 2.2 % (<4) 01/19/20 11:12 Troponin I 0.23 ng/mL (0-1.5) 01/19/20 11:12 B-Natriuretic Peptide 2480 pg/mL (0-79) H* 01/18/20 18:41 Total Protein 6.6 g/dL (6.4-8.2) 01/19/20 04:24 Albumin 2.8 g/dL (3.4-5.0) L 01/19/20 04:24 Globulin 3.8 g/dL (2.5-4.5) 01/19/20 04:24 Albumin/Globulin Ratio 0.7 Ratio (1.1-2.1) L 01/19/20 04:24 Triglycerides 66 mg/dL (0-150) 01/19/20 04:24 Cholesterol 87 mg/dL (0-200) 01/19/20 04:24 LDL Cholesterol, Calc 43 mg/dL (0-100) 01/19/20 04:24 HDL Cholesterol 31 mg/dL (40-60) L 01/19/20 04:24 Cholesterol/HDL Ratio 2.8 (0.0-5.0) 01/19/20 04:24 Specimen Type Clean catch urine 01/23/20 11:06 Urine Color Yellow (YELLOW) 01/23/20 11:06 Urine Appearance Clear (CLEAR) 01/23/20 11:06 Urine pH 8.0 (5.0 - 8.0) 01/23/20 11:06 Ur Specific [place] 1.015 (1.000-1.030) 01/23/20 11:06 Urine Protein Negative (NEGATIVE) 01/23/20 11:06 Urine Glucose (UA) Negative (NEGATIVE) 01/23/20 11:06 Urine Ketones Negative (NEGATIVE) 01/23/20 11:06 Urine Occult Blood Negative (NEGATIVE) 01/23/20 11:06 Urine Nitrite Negative (NEGATIVE) 01/23/20 11:06 Urine Bilirubin Negative (NEGATIVE) 01/23/20 11:06 Urine Urobilinogen Normal (NORMAL) 01/23/20 11:06 Ur Leukocyte Esterase 1+ (NEGATIVE) 01/23/20 11:06 Urine RBC 0-2 /HPF (0-3) 01/23/20 11:06 Urine WBC 3-5 /HPF (0-5) 01/23/20 11:06 Ur Squamous Epith Cells Few /HPF (NEGATIVE) 01/23/20 11:06 Amorphous Sediment 1+ /HPF (NEGATIVE) 01/18/20 19:00 Urine Bacteria Trace /HPF (NEGATIVE) 01/23/20 11:06 Hyaline Casts Rare /LPF (NEGATIVE) 01/18/20 19:00 Ur Culture Indicated? Yes/culture set up 01/23/20 11:06 SARS-CoV-2 (PCR) Negative (NEGATIVE) 01/18/20 20:32 S. pyogenes (TEM-PCR) Not detected (NOT DETECT) 01/21/20 18:30 Plan (1) KACI (acute kidney injury): Status: Acute (2) Acute exacerbation of CHF (congestive heart failure): Status: Acute (3) Anemia: Status: Acute Qualifiers: Anemia type: iron deficiency Iron deficiency anemia type: unspecified iron deficiency Qualified Code(s): D50.9 - Iron deficiency anemia, unspecified (4) Pulmonary hypertension: Status: Acute (5) Elevated INR: Status: Acute (6) Bilateral pleural effusion: Status: Acute (7) Pulmonary infiltrate: Status: Acute (8) Osteoarthritis: Status: Acute Qualifiers: Osteoarthritis location: multiple joints Osteoarthritis type: unspecified Qualified Code(s): M15.9 - Polyosteoarthritis, unspecified (9) Chronic back pain: Status: Acute Qualifiers: Back pain laterality: midline Back pain location: low back pain Sciatica presence: unspecified whether sciatica present Qualified Code(s): M54.5 - Low back pain; G89.29 - Other chronic pain; G89.29 - Other chronic pain (10) History of atrial fibrillation: Status: Acute (11) Hypertension: Status: Acute Qualifiers: Hypertension type: essential hypertension Qualified Code(s): I10 - Essential (primary) hypertension (12) Atrial fibrillation: Status: Acute Qualifiers: Atrial fibrillation type: unspecified Qualified Code(s): I48.91 - Unspecified atrial fibrillation (13) Pacemaker: Status: Acute
[2020-01-23] MEDS: COUMADIN TAB 5 MG (JANTOVEN) PO SCH (20:22)
[2020-01-23] MEDS: NEURONTIN CAP 100 MG PO SCH (20:23)
[2020-01-23] MEDS: ZOCOR TAB 40 MG PO SCH (20:23)
[2020-01-24 05:27] LABS: BASOPHILS % (AUTO) 1.4 % (0.2-1.0); EOSINOPHILS # (AUTO) 0.2 x10^3/uL (0.0-0.2); EOSINOPHILS % (AUTO) 6.8 % (0.9-2.9); HEMATOCRIT 30.4 % (36.0-47.0); HEMOGLOBIN 9.5 g/dL (12.0-16.0); LYMPHOCYTES # (AUTO) 0.5 X10^3/uL (1.3-2.9); LYMPHOCYTES % (AUTO) 15.2 % (21.0-51.0); MEAN CORPUSCULAR HEMOGLOBIN 26.9 pg (27.0-34.0); MEAN CORPUSCULAR HGB CONC 31.3 g/dL (33.0-35.0); MEAN CORPUSCULAR VOLUME 85.8 fL (80.0-100.0); MEAN PLATELET VOLUME 7.9 fL (7.4-11.0); MONOCYTES # (AUTO) 0.3 x10^3/uL (0.3-0.8); MONOCYTES % (AUTO) 8.9 % (0.0-13.0); NEUTROPHILS # (AUTO) 2.2 x10^3/uL (2.2-4.8); NEUTROPHILS % (AUTO) 67.7 % (42.0-75.0); PLATELET COUNT 149 X10^3/uL (150.0-450.0); RED BLOOD COUNT 3.54 X10^6/uL (3.5-5.4); RED CELL DISTRIBUTION WIDTH 19.8 % (11.6-16.5); WHITE BLOOD COUNT 3.2 X10^3/uL (3.6-10.0)
[2020-01-24 05:28] LABS: BLOOD UREA NITROGEN 9 mg/dL (7-18); CALCIUM 8.6 mg/dL (8.5-10.1); CARBON DIOXIDE 34.4 mmol/L (21-32); CHLORIDE 106 mmol/L (98-107); CREATININE 1.06 mg/dL (0.55-1.02); SODIUM 142 mmol/L (136-145); eGFR NON BLACK RACES 53 (>60)
[2020-01-24] MEDS: FERROUS GLUCONATE PO SCH ×2 (06:10→17:13)
[2020-01-24] MEDS ORDERED: ZOLOFT PO ONE (07:36)
[2020-01-24] MEDS ORDERED: LASIX ONE (07:38)
[2020-01-24] MEDS: ROCEPHIN VIAL 1 GRAM 1 G in NS 100 ML IV + SPIKE MINIBAG* 100 ML IV SCH (08:48)
[2020-01-24] MEDS: LASIX PO SCH (08:49)
[2020-01-24] MEDS: PLAQUENIL PO SCH (08:50)
[2020-01-24] MEDS: ZEBETA TAB 5 MG PO SCH (08:51)
[2020-01-24] MEDS: PriLOSEC PO SCH (08:51)
[2020-01-24] MEDS: ZOLOFT PO SCH (08:51)
[2020-01-24] MEDS: DUONEB 0.5 MG/3 MG (3 mL) NEB SCH ×2 (09:25→20:10)
[2020-01-24] MEDS ORDERED: BENTYL CAP 10 MG PO PRN (10:52)
[2020-01-24] MEDS: NEURONTIN CAP 100 MG PO SCH (20:37)
[2020-01-24] MEDS: ZOCOR TAB 40 MG PO SCH (20:38)
[2020-01-24] MEDS: COUMADIN TAB 5 MG (JANTOVEN) PO SCH (20:38)
[2020-01-25 04:54] LABS: BASOPHILS % (AUTO) 1.1 % (0.2-1.0); EOSINOPHILS # (AUTO) 0.2 x10^3/uL (0.0-0.2); EOSINOPHILS % (AUTO) 5.6 % (0.9-2.9); HEMATOCRIT 30.7 % (36.0-47.0); HEMOGLOBIN 9.5 g/dL (12.0-16.0); LYMPHOCYTES # (AUTO) 0.6 X10^3/uL (1.3-2.9); LYMPHOCYTES % (AUTO) 17.8 % (21.0-51.0); MEAN CORPUSCULAR HEMOGLOBIN 26.9 pg (27.0-34.0); MEAN CORPUSCULAR HGB CONC 31.1 g/dL (33.0-35.0); MEAN CORPUSCULAR VOLUME 86.7 fL (80.0-100.0); MEAN PLATELET VOLUME 8.3 fL (7.4-11.0); MONOCYTES # (AUTO) 0.3 x10^3/uL (0.3-0.8); MONOCYTES % (AUTO) 7.6 % (0.0-13.0); NEUTROPHILS # (AUTO) 2.3 x10^3/uL (2.2-4.8); NEUTROPHILS % (AUTO) 67.9 % (42.0-75.0); PLATELET COUNT 143 X10^3/uL (150.0-450.0); RED BLOOD COUNT 3.55 X10^6/uL (3.5-5.4); RED CELL DISTRIBUTION WIDTH 19.6 % (11.6-16.5); WHITE BLOOD COUNT 3.4 X10^3/uL (3.6-10.0)
[2020-01-25 04:59] LABS: BLOOD UREA NITROGEN 8 mg/dL (7-18); CALCIUM 8.8 mg/dL (8.5-10.1); CARBON DIOXIDE 32.2 mmol/L (21-32); CHLORIDE 107 mmol/L (98-107); CREATININE 1.08 mg/dL (0.55-1.02); SODIUM 143 mmol/L (136-145); eGFR NON BLACK RACES 52 (>60)
[2020-01-25] MEDS: FERROUS GLUCONATE PO SCH ×2 (06:05→16:39)
--- NOTE | 2020-01-25 06:05 | RAD ---
HISTORYPleural effusionsSTUDYPortable AP [id number]/12/2020FINDINGSContinued cardiomegaly with unchanged position of pacing device. Mod erate pulmonary vascular congestion as before. Left basal opacity again noted consistent with airspac e disease and probable pleural effusion. No complicating extrapulmonary air identified.IMPRESSIONNo s ignificant interval change since 01/22/2020. Findings remain consistent with CHF although localized l eft lower lobe pneumonia/atelectasis is suggested.Electronically signed by: LEYDI MARIA (Jan 24, 2 020 06:04:27)
[2020-01-25] MEDS ORDERED: ZOLOFT PO ONE (07:45)
[2020-01-25] MEDS ORDERED: ROCEPHIN 1 GRAM IV PREMIX 1 G/50 ML IV.SOLN. IV ONE (07:52)
[2020-01-25] MEDS: ZOLOFT PO SCH (08:29)
[2020-01-25] MEDS: LASIX PO SCH (08:29)
[2020-01-25] MEDS: PriLOSEC PO SCH (08:30)
[2020-01-25] MEDS: PLAQUENIL PO SCH (08:30)
[2020-01-25] MEDS: ROCEPHIN VIAL 1 GRAM 1 G in NS 100 ML IV + SPIKE MINIBAG* 100 ML IV SCH (08:31)
[2020-01-25] MEDS: ZEBETA TAB 5 MG PO SCH (08:31)
[2020-01-25] MEDS: DUONEB 0.5 MG/3 MG (3 mL) NEB SCH ×2 (09:00→20:50)
[2020-01-25] MEDS ORDERED: LASIX IVP ONE (10:21)
[2020-01-25] MEDS: K-DUR TAB 20 MEQ PO SCH (11:59)
[2020-01-25] MEDS: COUMADIN TAB 5 MG (JANTOVEN) PO SCH (21:08)
[2020-01-25] MEDS: NEURONTIN CAP 100 MG PO SCH (21:08)
[2020-01-25] MEDS: ZOCOR TAB 40 MG PO SCH (21:09)
[2020-01-26 05:21] LABS: BASOPHILS % (AUTO) 1.3 % (0.2-1.0); EOSINOPHILS # (AUTO) 0.2 x10^3/uL (0.0-0.2); EOSINOPHILS % (AUTO) 6.4 % (0.9-2.9); HEMATOCRIT 31.3 % (36.0-47.0); HEMOGLOBIN 9.8 g/dL (12.0-16.0); LYMPHOCYTES # (AUTO) 0.6 X10^3/uL (1.3-2.9); LYMPHOCYTES % (AUTO) 19.9 % (21.0-51.0); MEAN CORPUSCULAR HEMOGLOBIN 26.8 pg (27.0-34.0); MEAN CORPUSCULAR HGB CONC 31.2 g/dL (33.0-35.0); MEAN CORPUSCULAR VOLUME 85.9 fL (80.0-100.0); MEAN PLATELET VOLUME 8.6 fL (7.4-11.0); MONOCYTES # (AUTO) 0.2 x10^3/uL (0.3-0.8); MONOCYTES % (AUTO) 7.4 % (0.0-13.0); NEUTROPHILS # (AUTO) 2.1 x10^3/uL (2.2-4.8); PLATELET COUNT 152 X10^3/uL (150.0-450.0); RED BLOOD COUNT 3.65 X10^6/uL (3.5-5.4); RED CELL DISTRIBUTION WIDTH 19.2 % (11.6-16.5); WHITE BLOOD COUNT 3.2 X10^3/uL (3.6-10.0)
[2020-01-26 05:23] LABS: BLOOD UREA NITROGEN 9 mg/dL (7-18); CALCIUM 9.1 mg/dL (8.5-10.1); CARBON DIOXIDE 31.8 mmol/L (21-32); CHLORIDE 107 mmol/L (98-107); CREATININE 1.13 mg/dL (0.55-1.02); SODIUM 143 mmol/L (136-145); eGFR NON BLACK RACES 49 (>60)
[2020-01-26] MEDS: FERROUS GLUCONATE PO SCH (06:08)
[2020-01-26] MEDS ORDERED: ZOLOFT PO ONE (08:43)
[2020-01-26] MEDS: DUONEB 0.5 MG/3 MG (3 mL) NEB SCH (08:50)
[2020-01-26] MEDS ORDERED: VSL#3 PO SCH (09:00)
[2020-01-26] MEDS: ZOLOFT PO SCH (10:00)
[2020-01-26] MEDS: LASIX PO SCH (10:00)
[2020-01-26] MEDS: PriLOSEC PO SCH (10:37)
[2020-01-26] MEDS: K-DUR TAB 20 MEQ PO SCH (10:37)
[2020-01-26] MEDS: PLAQUENIL PO SCH (10:37)
[2020-01-26] MEDS: ZEBETA TAB 5 MG PO SCH (10:38)
--- NOTE | 2020-01-26 12:33 | RAD ---
HISTORYABDOMINAL CRAMPS, DIARRHEA HX: CHF, CAD, HTN SX: GB, ORTHOSTUDYKUBCOMPARISONNoneFINDINGSEvaluation of the abdomen demonstrates a normal bowel gas pattern. Cholecystectomy clips. No pathological soft tissue mass or calcification can be observed. The bony structures are grossly intact.IMPRESSIONNo evidence for acute abdominal pathology identified.Electron ically signed by: LUÍS LIN (Jan 26, 2020 12:32:11)
--- NOTE | 2020-01-26 13:45 | W.DIS.FURT ---
Summary of Discharge Discharge Summary of Date Date of Exam: 01/26/20 Admission Date Date of Admission: 01/19/20 Admission Diagnosis Patient Problems (Updated 01/28/20 @ 13:39 by Martina Harper) CHF (congestive heart failure) (Acute) I50.9 Bilateral pleural effusion (Acute) J90 SOB (shortness of breath) (Acute) R06.02 Hospital Course: Ms. Horton is a 79y/o female with a PMH of atrial fibrillation on coumadin, pacemaker, HTN, HLD, chronic back pain due to DDD presented with worsening dyspnea and weakness. Patient recently had right shoulder replacement and after the surgery started having increased leg swelling and shortness of breath. She was given lasix as outpatient but reports her breathing kept getting worse. She also reports N/V/D. She states the diarrhea has stopped now but she still feels very nauseated and unable to eat much. Patient denies fever or chills, no cough. In the ER, CXR was concerning for mild CHF, pulmonary congestion with possible atelectasis - Labs: elevated D-dimer and BNP, Hgb 10.7 BUN/Cr: 26/1.58 INR: 4.1 Trop 0.25 COVID (-) - CT PE: negative for PE, concerning for CHF, moderate-large pleural effusions, atelectasis She received IV lasix 40 mg in the ED. Duncan was placed for accurate output. Patient states her breathing is a lot better this AM. She is currently on 2L NC. Patient was continued on IV lasix for diuresis with daily weights and I/Os. Her renal function and hgb was monitored daily. Her renal function did start to improve with diuresis. CXR was repeated as needed and showed improvement in pulmonary congestion. CXR was also concerning for underlying atelectasis/infection so she was also started on IV rocephin. She did not have any fever or elevated WBC. ECHO was done which showed EF of 57% but moderate pulmonary HTN. Her INR gradually trended down and her warfarin was restarted. Patient continued t require 2 L O2 during her stay. PT/OT was also consulted and recommended short term rehab for therapy. This was discussed with patient and her daughter and they both agreed for rehab placement at [facility]. Patient was discharged to [facility] for PT/OT. Vital Signs: Vital Signs (72 hours) 01/23/20 16:00 01/23/20 19:59 01/24/20 00:00 Temperature 98.1 F 97.7 F 97.9 F Pulse Rate Pulse Rate [Left Brachial] 67 67 66 Respiratory Rate 18 16 20 Blood Pressure [Left Arm] 145/65 Blood Pressure [Right Arm] 146/67 140/67 O2 Sat by Pulse Oximetry 100 99 98 01/24/20 04:00 01/24/20 08:00 01/24/20 09:25 Temperature 98.5 F 98.2 F Pulse Rate 65 Pulse Rate [Left Brachial] 79 65 Respiratory Rate 18 16 Blood Pressure [Left Arm] Blood Pressure [Right Arm] 132/69 134/73 O2 Sat by Pulse Oximetry 97 99 96 01/24/20 12:00 01/24/20 16:00 01/24/20 20:00 Temperature 98.5 F 98.5 F 98.2 F Pulse Rate Pulse Rate [Left Brachial] 66 65 65 Respiratory Rate 18 17 20 Blood Pressure [Left Arm] 117/56 Blood Pressure [Right Arm] 136/61 124/72 O2 Sat by Pulse Oximetry 100 100 100 01/24/20 20:10 01/24/20 23:49 01/25/20 04:00 Temperature 98.1 F 98.2 F Pulse Rate Pulse Rate [Left Brachial] 87 69 Respiratory Rate 16 16 Blood Pressure [Left Arm] 125/60 Blood Pressure [Right Arm] 143/66 O2 Sat by Pulse Oximetry 98 100 99 01/25/20 08:00 01/25/20 09:24 01/25/20 12:00 Temperature 98.2 F 98.2 F Pulse Rate 70 Pulse Rate [Left Brachial] 65 65 Respiratory Rate 18 20 Blood Pressure [Left Arm] Blood Pressure [Right Arm] 137/71 143/76 O2 Sat by Pulse Oximetry 100 97 100 01/25/20 16:00 01/25/20 20:00 01/25/20 20:50 Temperature 99.2 F 98 F Pulse Rate 72 Pulse Rate [Left Brachial] 65 66 Respiratory Rate 18 20 Blood Pressure [Left Arm] Blood Pressure [Right Arm] 132/75 123/74 O2 Sat by Pulse Oximetry 99 98 98 01/26/20 00:00 01/26/20 04:00 01/26/20 08:50 Temperature 97.4 F L 98.4 F Pulse Rate 78 Pulse Rate [Left Brachial] 66 65 Respiratory Rate 18 17 Blood Pressure [Left Arm] 130/63 124/64 Blood Pressure [Right Arm] O2 Sat by Pulse Oximetry 100 100 97 Labs: Laboratory Last Values WBC 3.2 X10^3/uL (3.6-10.0) L 01/26/20 04:25 RBC 3.65 X10^6/uL (3.5-5.4) 01/26/20 04:25 Hgb 9.8 g/dL (12.0-16.0) L 01/26/20 04:25 Hct 31.3 % (36.0-47.0) L 01/26/20 04:25 MCV 85.9 fL (80.0-100.0) 01/26/20 04:25 MCH 26.8 pg (27.0-34.0) L 01/26/20 04:25 MCHC 31.2 g/dL (33.0-35.0) L 01/26/20 04:25 RDW 19.2 % (11.6-16.5) H 01/26/20 04:25 Plt Count 152 X10^3/uL (150.0-450.0) 01/26/20 04:25 Plt Count Comment Adequate (ADEQUATE) 01/23/20 04:15 MPV 8.6 fL (7.4-11.0) 01/26/20 04:25 Neut % (Auto) 65.0 % (42.0-75.0) 01/26/20 04:25 Lymph % (Auto) 19.9 % (21.0-51.0) L 01/26/20 04:25 Jones % (Auto) 7.4 % (0.0-13.0) 01/26/20 04:25 Eos % (Auto) 6.4 % (0.9-2.9) H 01/26/20 04:25 Baso % (Auto) 1.3 % (0.2-1.0) H 01/26/20 04:25 Neut # (Auto) 2.1 x10^3/uL (2.2-4.8) L 01/26/20 04:25 Lymph # (Auto) 0.6 X10^3/uL (1.3-2.9) L 01/26/20 04:25 Jones # (Auto) 0.2 x10^3/uL (0.3-0.8) L 01/26/20 04:25 Eos # (Auto) 0.2 x10^3/uL (0.0-0.2) 01/26/20 04:25 Baso # (Auto) 0.0 X10^3/uL (0.0-0.1) 01/26/20 04:25 Absolute Nucleated RBC 0.1 /100WBC 01/26/20 04:25 Plt Morphology Comment Normal (NORMAL) 01/23/20 04:15 RBC Morphology Abnormal (NORMAL) A 01/23/20 04:15 Hypochromasia 1+ A 01/23/20 04:15 Anisocytosis 1+ A 01/23/20 04:15 PT 17.0 SECONDS (11.8-14.3) 01/26/20 04:25 INR Target Range - 01/26/20 04:25 INR 1.43 (0.8-1.3) H 01/26/20 04:25 D-Dimer > 20.00 ug/ml (0.0-0.57) H* 01/18/20 18:41 Sodium 143 mmol/L (136-145) 01/26/20 04:25 Corrected Sodium TNP 01/26/20 04:25 Potassium 3.7 mmol/L (3.5-5.1) 01/26/20 04:25 Chloride 107 mmol/L (98-107) 01/26/20 04:25 Carbon Dioxide 31.8 mmol/L (21-32) 01/26/20 04:25 BUN 9 mg/dL (7-18) 01/26/20 04:25 Creatinine 1.13 mg/dL (0.55-1.02) H 01/26/20 04:25 Est GFR (MDRD) Af Amer 60 (>60) 01/26/20 04:25 Est GFR (MDRD) Non-Af 49 (>60) L 01/26/20 04:25 Glucose 96 mg/dL (65-99) 01/26/20 04:25 Calcium 9.1 mg/dL (8.5-10.1) 01/26/20 04:25 Corrected Calcium 9.6 mg/dL (8.5-10.1) 01/19/20 04:24 Magnesium 2.1 mg/dL (1.7-2.9) 01/22/20 04:25 Total Bilirubin 1.10 mg/dL (0.2-1.0) H 01/19/20 04:24 AST 51 Units/L (15-37) H 01/19/20 04:24 ALT 29 Units/L (12-78) 01/19/20 04:24 Alkaline Phosphatase 113 Units/L (46-116) 01/19/20 04:24 Creatine Kinase 163 Units/L (26-192) 01/19/20 11:12 CK-MB (CK-2) 3.6 ng/mL (0-4.0) 01/19/20 11:12 CK/CKMB % Calc 2.2 % (<4) 01/19/20 11:12 Troponin I 0.23 ng/mL (0-1.5) 01/19/20 11:12 B-Natriuretic Peptide 2480 pg/mL (0-79) H* 01/18/20 18:41 Total Protein 6.6 g/dL (6.4-8.2) 01/19/20 04:24 Albumin 2.8 g/dL (3.4-5.0) L 01/19/20 04:24 Globulin 3.8 g/dL (2.5-4.5) 01/19/20 04:24 Albumin/Globulin Ratio 0.7 Ratio (1.1-2.1) L 01/19/20 04:24 Triglycerides 66 mg/dL (0-150) 01/19/20 04:24 Cholesterol 87 mg/dL (0-200) 01/19/20 04:24 LDL Cholesterol, Calc 43 mg/dL (0-100) 01/19/20 04:24 HDL Cholesterol 31 mg/dL (40-60) L 01/19/20 04:24 Cholesterol/HDL Ratio 2.8 (0.0-5.0) 01/19/20 04:24 Specimen Type Clean catch urine 01/23/20 11:06 Urine Color Yellow (YELLOW) 01/23/20 11:06 Urine Appearance Clear (CLEAR) 01/23/20 11:06 Urine pH 8.0 (5.0 - 8.0) 01/23/20 11:06 Ur Specific [place] 1.015 (1.000-1.030) 01/23/20 11:06 Urine Protein Negative (NEGATIVE) 01/23/20 11:06 Urine Glucose (UA) Negative (NEGATIVE) 01/23/20 11:06 Urine Ketones Negative (NEGATIVE) 01/23/20 11:06 Urine Occult Blood Negative (NEGATIVE) 01/23/20 11:06 Urine Nitrite Negative (NEGATIVE) 01/23/20 11:06 Urine Bilirubin Negative (NEGATIVE) 01/23/20 11:06 Urine Urobilinogen Normal (NORMAL) 01/23/20 11:06 Ur Leukocyte Esterase 1+ (NEGATIVE) 01/23/20 11:06 Urine RBC 0-2 /HPF (0-3) 01/23/20 11:06 Urine WBC 3-5 /HPF (0-5) 01/23/20 11:06 Ur Squamous Epith Cells Few /HPF (NEGATIVE) 01/23/20 11:06 Amorphous Sediment 1+ /HPF (NEGATIVE) 01/18/20 19:00 Urine Bacteria Trace /HPF (NEGATIVE) 01/23/20 11:06 Hyaline Casts Rare /LPF (NEGATIVE) 01/18/20 19:00 Ur Culture Indicated? Yes/culture set up 01/23/20 11:06 SARS-CoV-2 (PCR) Negative (NEGATIVE) 01/18/20 20:32 S. pyogenes (TEM-PCR) Not detected (NOT DETECT) 01/21/20 18:30 Reason For Visit: CHF,BILATERAL PLEURAL EFFUSION,SOB Discharge Date Discharge Date: 01/26/20 Discharge Diagnosis All Active Problems (Updated 01/28/20 @ 13:39 by Martina Harper) Pacemaker (Chronic) Atrial fibrillation (Chronic) Pulmonary hypertension (Acute) Elevated INR (Acute) Pulmonary infiltrate (Acute) KACI (acute kidney injury) (Acute) Acute exacerbation of CHF (congestive heart failure) (Acute) Arthritis (Chronic) Chronic back pain (Chronic) Osteoarthritis (Acute) Hypertension (Chronic) Hyperlipidemia (Chronic) Depression (Chronic) Anemia (Chronic) Dental caries (Acute) Uncontrolled hypertension (Acute) Hypertension (Acute) Contusion of shoulder (Chronic) CHF (congestive heart failure) (Acute) Bilateral pleural effusion (Acute) SOB (shortness of breath) (Acute) Plan of Treatment: Continue with present treatment and follow up plan. Pt is to keep follow up appointment as instructed and take medications as ordered. Discharge Medications Discharge Medications: No Known Drug Allergies Allergy (Verified 09/26/19 14:10) CONTINUE taking the following medications Lactobacillus acidoph-L.bulgar [Floranex] 1 tab PO BID 01/19/20 [History] docusate sodium [Colace] 100 mg PO BID 01/19/20 [History] ferrous gluconate 324 mg PO BID 01/19/20 [History] furosemide 20 mg PO DAILY 01/19/20 [History] hydrocodone-acetaminophen 1 tab PO BID PRN 01/19/20 [History] omeprazole 40 mg PO DAILY 01/19/20 [History] ondansetron 4 mg PO TID PRN 01/19/20 [History] tramadol 50 mg PO TID PRN 01/19/20 [History] Follow up and Referral Follow Up: 2 Weeks (PCP ) Discharge Disposition Assessment: Stable no acute distress noted at time of discharge. Discharge Disposition: Rehab- [facility] Discharge Condition: Stable Discharge Plan Discharge Plan Hospital Course: Ms. Horton is a 79y/o female with a PMH of atrial fibrillation on coumadin, pacemaker, HTN, HLD, chronic back pain due to DDD presented with worsening dyspnea and weakness. Patient recently had right shoulder replacement and after the surgery started having increased leg swelling and shortness of breath. She was given lasix as outpatient but reports her breathing kept getting worse. She also reports N/V/D. She states the diarrhea has stopped now but she still feels very nauseated and unable to eat much. Patient denies fever or chills, no cough. In the ER, CXR was concerning for mild CHF, pulmonary congestion with possible atelectasis - Labs: elevated D-dimer and BNP, Hgb 10.7 BUN/Cr: 26/1.58 INR: 4.1 Trop 0.25 COVID (-) - CT PE: negative for PE, concerning for CHF, moderate-large pleural effusions, atelectasis She received IV lasix 40 mg in the ED. Duncan was placed for accurate output. Patient states her breathing is a lot better this AM. She is currently on 2L NC. Patient was continued on IV lasix for diuresis with daily weights and I/Os. Her renal function and hgb was monitored daily. Her renal function did start to improve with diuresis. CXR was repeated as needed and showed improvement in pulmonary congestion. CXR was also concerning for underlying atelectasis/infection so she was also started on IV rocephin. She did not have any fever or elevated WBC. ECHO was done which showed EF of 57% but moderate pulmonary HTN. Her INR gradually trended down and her warfarin was restarted. Patient continued t require 2 L O2 during her stay. PT/OT was also consulted and recommended short term rehab for therapy. This was discussed with patient and her daughter and they both agreed for rehab placement at [facility]. Patient was discharged to [facility] for PT/OT. Patient Disposition: Disch/Tx to Rehabilitation Fac Condition: Stable Health Concerns: Post Hospitalization: new medications and changes needed to prevent readmission or further decline. Pt educated and given instructions on all concerns. Care Plan Goals: Problem: Cardiac Complications Goal: Early Recognition of cardiac complications for prompt intervention Instructions: Follow provided instructions. Follow up with primary physician as directed. Contact primary care physician or report to the closest Emergency Room if condition worsens. Plan of Treatment: Continue with present treatment and follow up plan. Pt is to keep follow up appointment as instructed and take medications as ordered. Assessment: Stable no acute distress noted at time of discharge. Prescription drug monitoring program results: PDMP reviewed and no concerns identified Prescriptions: New VSL#3 112.5 billion cell Capsule 1 cap PO DAILY 30 Days Qty: 30 RF: 0 furosemide 40 mg Tablet 40 mg PO DAILY 30 Days Qty: 30 RF: 0 Continued Simvastatin 40 MG Tab 40 mg PO HS RF: 0 sertraline 100 MG tablet 100 mg PO DAILY RF: 0 gabapentin 100 MG capsule 200 mg PO HS RF: 0 warfarin 5 MG tablet 5 mg PO HS Qty: 30 RF: 3 folic acid 1 mg tablet 1 mg PO DAILY RF: 0 hydroxychloroquine 200 mg tablet 150 mg PO DAILY RF: 0 Bystolic 5 mg tablet 10 mg PO DAILY Qty: 0 RF: 0 ondansetron 4 mg tablet,disintegrating 4 mg PO TID PRNRF: 0 hydrocodone-acetaminophen 10-325 mg tablet 1 tab PO BID PRN (Reason: Pain) RF: 0 tramadol 50 mg tablet 50 mg PO TID PRN (Reason: Pain) RF: 0 ferrous gluconate 324 mg (38 mg iron) tablet 324 mg PO BID RF: 0 omeprazole 40 mg capsule,delayed release(DR/EC) 40 mg PO DAILY RF: 0 Discontinued losartan 50 MG tablet 100 mg PO DAILY RF: 0 Lactobacillus acidoph-L.bulgar [Floranex] 1 million cell tablet 1 tab PO BID RF: 0 furosemide 20 mg tablet 20 mg PO DAILY RF: 0 docusate sodium [Colace] 100 mg capsule 100 mg PO BID RF: 0 Orders to Discharge Patient Discharge Orders: Discharge (Routine); Ordered 01/26/20 Ordered By: Martina Harper Follow ups/Referrals Follow ups/Referrals: Martina Harper [Primary Care Provider] - 1 WEEK Instructions Instructions: Shortness of Breath, Adult, [id number], Hand Washing, [id number], Hypoxia, Heart Failure Action Plan, Hypertension, [id number], Physical Activity With Heart Disease, Heart Failure, [id number], Pulmonary Edema Stand Alone Forms: Excuse From Work or School
[2020-01-26 15:57] VITALS: BP 128/60
== END 2020-01-26 16:05 | DRG 292 ==
LOC: ER 17:21 → MED/SURG 22:16
PROVIDERS: ADMIT Internal Medicine; ATTEND Internal Medicine
DX: Z20.828 Contact with and (suspected) exposure to other viral communicable diseases; R91.8 Other nonspecific abnormal finding of lung field; I27.20 Pulmonary hypertension, unspecified; I48.20 Chronic atrial fibrillation, unspecified; I50.9 Heart failure, unspecified; R10.9 Unspecified abdominal pain; Z95.0 Presence of cardiac pacemaker; J44.9 Chronic obstructive pulmonary disease, unspecified; Z96.611 Presence of right artificial shoulder joint; R26.81 Unsteadiness on feet; N28.9 Disorder of kidney and ureter, unspecified; R30.9 Painful micturition, unspecified; D50.9 Iron deficiency anemia, unspecified; R19.7 Diarrhea, unspecified; R79.1 Abnormal coagulation profile; M54.30 Sciatica, unspecified side; F41.9 Anxiety disorder, unspecified

== ENCOUNTER 2020-03-05 13:57 | Inpatient (IN) ==
--- NOTE | 2020-03-05 14:36 | DR.DIARMA ---
HPI Time seen Time Seen by Provider: 03/05/20 14:36 PCP Primary Care Physician: THI ARIZMENDI HPI Comment HPI Comment: 79 yo f w/ pmh afib presents w/ diarrhea x 2 weeks, no blood or mucous, a/w suprapubic area abd cramping. + decreased appetite. No n/v, blood per rectum. + scant non productive cough. No CP/ SOB, f/c, rhinorrhea, back pain, urinary sx's. 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 GETTING WORSE , AND > WEAKNESS AND < APPETITE ..BR Source History Provided: Patient Mode of Arrival Mode of Arrival: Wheelchair Timing Onset of Chief Complaint: 12/23/19 Severity Number of Diarrhea Episodes in last 24 hours: 8 Quality Quality of Diarrhea: Watery If abdominal pain present Location of Abdominal Pain: None PMH PMH Past Medical History: Yes Past Medical History: Anxiety, Arthritis, Dyslipidemia and Hypertension Past Surgical History: Yes Surgical History: Carotid Endarterectomy, Cholecystectomy, Ortho Surgery and Other Family History History of Family Medical Conditions: Yes Family Medical History: Diabetes Mellitus Social History Does patient currently use any type of tobacco product: No Have you used tobacco products in the last 12 months: No Type of Tobacco Use: None Does any household member use tobacco: No Alcohol Use: None Do you use any recreational Drugs:: No Lives With: Family Lives Where: Home Infectious screening In the last 2 months have you had wt loss of >10#?: NO Have you had fever, night sweats or hemotysis?: No Have you traveled outside the country in the last 6 months?: No Isolation: Standard ROS Review of Systems Constitutional: No Symptoms Reported Eyes: No Symptoms Reported ENTM: No Symptoms Reported Respiratoy: Non-Productive Cough; negative Short of Breath Cardiovascular: No Symptoms Reported Gastrointestinal/Abdominal: Abdominal Pain and Diarrhea; negative Nausea and Vomiting Genitourinary: No Symptoms Reported Neurological: No Symptoms Reported Musculoskeletal: No Symptoms Reported Integumentary: No Symptoms Reported Hematologic/Lymphatic: No Symptoms Reported Endocrine: No Symptoms Reported Psychiatric: No Symptoms Reported All Other Systems: Reviewed and Negative PE Vital Signs Vitals: Temperature 36.8 C Pulse Rate 65 Respiratory Rate 20 Blood Pressure [Right Arm] 177/75 Blood Pressure 176/84 O2 Sat by Pulse Oximetry 93 General Limitations: No Limitations General Appearance: Alert Head Head Exam: Normal Inspection Eyes Eye exam: Normal Appearance ENT ENT Exam: Normal Exam Neck Neck Exam: Normal Inspection Chest Chest Inspection: Normal Inspection Respiratory Respiratory Exam: Normal Lung Sounds Bilat Cardiovascular Cardiovascular Exam: Regular Rate and Normal Rhythm Abdominal Exam Abdominal Exam: Normal Bowel Sounds, Soft and Tenderness; negative Distention, Guarding, Rebound, Rigidity and Dimnished Bowel Sounds Abdominal Tenderness: Suprapubic Rectal Rectal: Deferred Genitourinary Scrotum: Deferred Hernia: Deferred Prostate: Deferred Extremeties Extremities Exam: Normal Inspection Back Back Exam: Normal Inspection Neurologic Neurological Exam: Alert and Oriented X3 Psychiatric Psychiatric Exam: Normal Affect and Normal Mood Skin Skin Exam: Warm, Dry, Intact and Normal Color MDM Differential Diagnosis Differential Diagnosis: Diarrhea Bacterial, Diarrhea Viral, Gastroenteritis, Inflammatory BD and Other (comments) (covid 19 infection ) COURSE Treatment Treatment: 79 yo presents w/ diarrhea illness x 2 weeks. CXR w/ evidence of mild pulmonary edema, bnp elevated, trop pending. EKG w/o acute ischemic changes. Given Lasix iv. Mild elevated CRE when compared to last. ? cardiorenal syndrome. d/w Dr hillman whom agrees to admit for diuresis and acute on chronic CHF. ROR Labs Reviewed Result Diagrams: 03/05/20 14:45 03/05/20 14:45 Laboratory: WBC 4.0 X10^3/uL (3.6-10.0) 03/05/20 14:45 RBC 4.65 X10^6/uL (3.5-5.4) 03/05/20 14:45 Hgb 12.3 g/dL (12.0-16.0) 03/05/20 14:45 Hct 40.2 % (36.0-47.0) 03/05/20 14:45 MCV 86.5 fL (80.0-100.0) 03/05/20 14:45 MCH 26.5 pg (27.0-34.0) L 03/05/20 14:45 MCHC 30.6 g/dL (33.0-35.0) L 03/05/20 14:45 RDW 19.0 % (11.6-16.5) H 03/05/20 14:45 Plt Count 143 X10^3/uL (150.0-450.0) L 03/05/20 14:45 MPV 8.0 fL (7.4-11.0) 03/05/20 14:45 Neut % (Auto) 62.1 % (42.0-75.0) 03/05/20 14:45 Lymph % (Auto) 29.1 % (21.0-51.0) 03/05/20 14:45 [place] % (Auto) 5.6 % (0.0-13.0) 03/05/20 14:45 Eos % (Auto) 2.0 % (0.9-2.9) 03/05/20 14:45 Baso % (Auto) 1.2 % (0.2-1.0) H 03/05/20 14:45 Neut # (Auto) 2.5 x10^3/uL (2.2-4.8) 03/05/20 14:45 Lymph # (Auto) 1.2 X10^3/uL (1.3-2.9) L 03/05/20 14:45 [place] # (Auto) 0.2 x10^3/uL (0.3-0.8) L 03/05/20 14:45 Eos # (Auto) 0.1 x10^3/uL (0.0-0.2) 03/05/20 14:45 Baso # (Auto) 0.0 X10^3/uL (0.0-0.1) 03/05/20 14:45 Absolute Nucleated RBC 0.1 /100WBC 03/05/20 14:45 Sodium 142 mmol/L (136-145) 03/05/20 14:45 Corrected Sodium TNP 03/05/20 14:45 Potassium 3.8 mmol/L (3.5-5.1) 03/05/20 14:45 Chloride 106 mmol/L (98-107) 03/05/20 14:45 Carbon Dioxide 22.5 mmol/L (21-32) 03/05/20 14:45 BUN 13 mg/dL (7-18) 03/05/20 14:45 Creatinine 1.44 mg/dL (0.55-1.02) H 03/05/20 14:45 Est GFR (MDRD) Af Amer 45 (>60) L 03/05/20 14:45 Est GFR (MDRD) Non-Af 37 (>60) L 03/05/20 14:45 Glucose 94 mg/dL (65-99) 03/05/20 14:45 Calcium 9.4 mg/dL (8.5-10.1) 03/05/20 14:45 Corrected Calcium TNP 03/05/20 14:45 Ferritin 177 ng/mL (8-252) 03/05/20 14:45 Total Bilirubin 1.10 mg/dL (0.2-1.0) H 03/05/20 14:45 AST 32 Units/L (15-37) 03/05/20 14:45 ALT 30 Units/L (12-78) 03/05/20 14:45 Alkaline Phosphatase 84 Units/L (46-116) 03/05/20 14:45 Lactate Dehydrogenase 320 Units/L (81-234) H 03/05/20 14:45 Troponin I 0.16 ng/mL (0-1.5) 03/05/20 17:50 B-Natriuretic Peptide 3020 pg/mL (0-79) H* 03/05/20 14:45 Total Protein 8.0 g/dL (6.4-8.2) 03/05/20 14:45 Albumin 3.6 g/dL (3.4-5.0) 03/05/20 14:45 Globulin 4.4 g/dL (2.5-4.5) 03/05/20 14:45 Albumin/Globulin Ratio 0.8 Ratio (1.1-2.1) L 03/05/20 14:45 SARS CoV-2 RNA Rapid ALISHA Negative (NEGATIVE) 03/05/20 15:46 EKG Rate: 65 Rhythm: Paced Block: None Hypertrophy: None ST: Normal Opioid Opioid Risk Tool Age (Agustin box if 16-45): No History of Preadolescent Sexual Abuse: No Total: 0 Total Score Risk Category: Low Risk Copyright: Maxim KURTZ predicting aberrant behaviors Diagnosis Discharge Problem: KACI (acute kidney injury), Infectious diarrhea in adult patient Acute exacerbation of CHF (congestive heart failure) Qualifiers: Heart failure type: unspecified Qualified Code(s): I50.9 - Heart failure, unspecified Instructions Forms: Patient Portal Social Distancing
[2020-03-05 14:53] LABS: BASOPHILS % (AUTO) 1.2 % (0.2-1.0); EOSINOPHILS # (AUTO) 0.1 x10^3/uL (0.0-0.2); HEMATOCRIT 40.2 % (36.0-47.0); HEMOGLOBIN 12.3 g/dL (12.0-16.0); LYMPHOCYTES # (AUTO) 1.2 X10^3/uL (1.3-2.9); LYMPHOCYTES % (AUTO) 29.1 % (21.0-51.0); MEAN CORPUSCULAR HEMOGLOBIN 26.5 pg (27.0-34.0); MEAN CORPUSCULAR HGB CONC 30.6 g/dL (33.0-35.0); MEAN CORPUSCULAR VOLUME 86.5 fL (80.0-100.0); MONOCYTES # (AUTO) 0.2 x10^3/uL (0.3-0.8); MONOCYTES % (AUTO) 5.6 % (0.0-13.0); NEUTROPHILS # (AUTO) 2.5 x10^3/uL (2.2-4.8); NEUTROPHILS % (AUTO) 62.1 % (42.0-75.0); PLATELET COUNT 143 X10^3/uL (150.0-450.0); RED BLOOD COUNT 4.65 X10^6/uL (3.5-5.4)
[2020-03-05 15:03] LABS: ALANINE AMINOTRANSFERASE 30 Units/L (12-78); ALBUMIN 3.6 g/dL (3.4-5.0); ALKALINE PHOSPHATASE 84 Units/L (46-116); ASPARTATE AMINO TRANSFERASE 32 Units/L (15-37); BLOOD UREA NITROGEN 13 mg/dL (7-18); CALCIUM 9.4 mg/dL (8.5-10.1); CARBON DIOXIDE 22.5 mmol/L (21-32); CHLORIDE 106 mmol/L (98-107); CREATININE 1.44 mg/dL (0.55-1.02); LACTATE DEHYDROGENASE 320 Units/L (81-234); SODIUM 142 mmol/L (136-145); eGFR NON BLACK RACES 37 (>60)
[2020-03-05] MEDS ORDERED: ZOFRAN INJ 4 MG VIAL IVP ONE (15:43)
[2020-03-05] MEDS ORDERED: NS 1000 ML 1,000 ML IV ONE (15:43)
[2020-03-05] MEDS ORDERED: NS 1000 ML 1,000 ML ONE (15:48)
[2020-03-05] MEDS ORDERED: ZOFRAN INJ 4 MG VIAL ONE (15:48)
--- NOTE | 2020-03-05 16:31 | RAD ---
HISTORYNausea, vomitting, dizzinessSTUDYCHEST, 1 VIEWCOMPARISONPrevious chest radiograph from 01/25/2020FINDINGSCardiomegaly with mild vascular prominence is seen. Cardiac pacemaker is present as well. Patchy opacity is present in the right perihilar region as well as the left base. Small effusion may be present on the left as well. Bony thorax is unremarkable other than right shoulder arthroplasty.IMPRESSION1. Cardiomegaly with mild vascular prominence. 2. Right perihilar and left basilar infiltrates.Electronically signed by: NANCY LOU (Mar 05, 2020 16:29:45)
[2020-03-05] MEDS ORDERED: LASIX IVP ONE (17:33)
[2020-03-05] MEDS ORDERED: LASIX ONE (18:06)
[2020-03-05 18:48] LABS: CKMB % 2.3 % (<4); CREATINE KINASE MB 1.9 ng/mL (0-4.0); TROPONIN I 0.16 ng/mL (0-1.5)
[2020-03-06 01:41] LABS: CKMB % 1.7 % (<4); CREATINE KINASE MB 1.3 ng/mL (0-4.0); TROPONIN I 0.16 ng/mL (0-1.5)
[2020-03-06 06:29] LABS: BASOPHILS # (AUTO) 0.1 X10^3/uL (0.0-0.1); BASOPHILS % (AUTO) 1.5 % (0.2-1.0); EOSINOPHILS # (AUTO) 0.1 x10^3/uL (0.0-0.2); EOSINOPHILS % (AUTO) 3.6 % (0.9-2.9); HEMATOCRIT 36.9 % (36.0-47.0); HEMOGLOBIN 11.5 g/dL (12.0-16.0); LYMPHOCYTES % (AUTO) 26.2 % (21.0-51.0); MEAN CORPUSCULAR HEMOGLOBIN 26.8 pg (27.0-34.0); MEAN CORPUSCULAR HGB CONC 31.3 g/dL (33.0-35.0); MEAN CORPUSCULAR VOLUME 85.5 fL (80.0-100.0); MEAN PLATELET VOLUME 8.8 fL (7.4-11.0); MONOCYTES # (AUTO) 0.3 x10^3/uL (0.3-0.8); MONOCYTES % (AUTO) 8.5 % (0.0-13.0); NEUTROPHILS # (AUTO) 2.2 x10^3/uL (2.2-4.8); NEUTROPHILS % (AUTO) 60.2 % (42.0-75.0); PLATELET COUNT 118 X10^3/uL (150.0-450.0); RED BLOOD COUNT 4.31 X10^6/uL (3.5-5.4); RED CELL DISTRIBUTION WIDTH 18.8 % (11.6-16.5); WHITE BLOOD COUNT 3.6 X10^3/uL (3.6-10.0)
[2020-03-06 06:51] LABS: ALANINE AMINOTRANSFERASE 24 Units/L (12-78); ALKALINE PHOSPHATASE 70 Units/L (46-116); ASPARTATE AMINO TRANSFERASE 31 Units/L (15-37); BLOOD UREA NITROGEN 14 mg/dL (7-18); CALCIUM 9.1 mg/dL (8.5-10.1); CARBON DIOXIDE 21.6 mmol/L (21-32); CHLORIDE 108 mmol/L (98-107); CKMB % 2.2 % (<4); COR CA(FOR HYPOALB) 9.9 mg/dL (8.5-10.1); CREATINE KINASE 73 Units/L (26-192); CREATINE KINASE MB 1.6 ng/mL (0-4.0); CREATININE 1.28 mg/dL (0.55-1.02); SODIUM 143 mmol/L (136-145); TOTAL PROTEIN 6.9 g/dL (6.4-8.2); TROPONIN I 0.17 ng/mL (0-1.5); eGFR NON BLACK RACES 43 (>60)
[2020-03-06] MEDS: LASIX IVP SCH (10:06)
[2020-03-06] MEDS ORDERED: NEBIVOLOL 5 MG PO SCH (10:15)
[2020-03-06] MEDS: ROCEPHIN VIAL 1 GRAM 1 G in NS 100 ML IV + SPIKE MINIBAG* 100 ML IV SCH (11:28)
[2020-03-06] MEDS: PriLOSEC PO SCH (11:29)
[2020-03-06] MEDS: FOLIC ACID TAB 1 MG PO SCH (11:29)
[2020-03-06] MEDS: ZEBETA TAB 5 MG PO SCH (11:29)
--- NOTE | 2020-03-06 12:28 | RAD ---
HISTORYabdominal pain, diarrhea HX: CHF, CAD, HTN SX: GB, ORTHOSTUDYKUBCOMPARISONNovember 2019FINDINGSEvaluation of the abdomen demonstrates a normal bowel gas pattern. No pathological soft tissue mass or calcification can be observed. The bony structures are grossly intact.IMPRESSIONNo evidence for acute abdominal pathology identified.Electronically signed by: DANNI MCDANIEL (Mar 06, 2020 12:26:41)
[2020-03-06] MEDS: DUONEB 0.5 MG/3 MG (3 mL) NEB SCH ×2 (13:12→20:30)
[2020-03-06] MEDS: BENTYL CAP 10 MG PO SCH ×2 (13:41→21:08)
[2020-03-06] MEDS: PLAQUENIL PO SCH (13:41)
--- NOTE | 2020-03-06 13:52 | DR.H&P ---
H&P History & Physical for Day of: H&P Date: 03/06/20 Chief Complaint Chief Complaint: diarrhea and shortness of breath Allergies Allergies Allergy/AdvReac Type Severity Reaction Status Date / Time No Known Drug Allergies Allergy Verified 09/26/19 14:10 History of Present Illness History of Present Illness: Ms. Horton is a 79y/o female with a PMH of atrial fibrillation, pacemaker, HTN, HLD, RA and chronic pain disorder presented with recurrent diarrhea, abdominal cramps and shortness of breath. Patient was admitted for diarrhea and dehydration few weeks ago and recently went home after being in rehab for a few weeks. She states she was doing well at home untile recently she stared having abdominal cramps and then yesterday she had loose watery stools. She states she would have diarrhea within 20-30 mins after eating. She states it happens with liquids and solids. She also reports increased LE edema and shortness of breath on exertion. She reports taking her Lasix at home. ED work-up Labs: BNP 3020 Trop 0.16 0.16 0.17 BUN/Cr: 14/1.4, now 1.28 - INR: 4.21 - CXR: suggestive of pulmonary congestion and basilar infiltrates - COVID-19 negative - Patient was on 2L NC overnight but currently on room air. She did receive a dose of IV Lasix. She reports no diarrhea overnight, she did have a small BM this morning. She has been eating well. Plan: continue telemetry, strict I/Os, daily weights. Continue IV Lasix. Will start Rocephin, duonebs and pulmicort. Echo ordered to assess LV function. Check stool for C.diff. Start Dicyclomine. Get KUB. Resume home medications. Hold warfarin due to elevated INR. Monitor AM labs, imaging. Past Medical History Past Medical History: Anxiety, Arthritis, Dyslipidemia and Hypertension Additional Medical History: Atrial fibrillation Pacemaker Past Surgical History Surgical History: Cholecystectomy, Ortho Surgery and Other Family History Family Medical History: Diabetes Mellitus Social History Does patient currently use any type of tobacco product: No Have you used tobacco products in the last 12 months: No Type of Tobacco Use: None Does any household member use tobacco: No Alcohol Use: None Drug Use: None Prescription drug monitoring program results: PDMP reviewed and no concerns identified Medications Home Medications: No Known Drug Allergies Allergy (Verified 09/26/19 14:10) Labs Result Diagrams: 03/06/20 05:45 03/06/20 05:45 Labs: Laboratory WBC 3.6 X10^3/uL (3.6-10.0) 03/06/20 05:45 RBC 4.31 X10^6/uL (3.5-5.4) 03/06/20 05:45 Hgb 11.5 g/dL (12.0-16.0) L 03/06/20 05:45 Hct 36.9 % (36.0-47.0) 03/06/20 05:45 MCV 85.5 fL (80.0-100.0) 03/06/20 05:45 MCH 26.8 pg (27.0-34.0) L 03/06/20 05:45 MCHC 31.3 g/dL (33.0-35.0) L 03/06/20 05:45 RDW 18.8 % (11.6-16.5) H 03/06/20 05:45 Plt Count 118 X10^3/uL (150.0-450.0) L 03/06/20 05:45 MPV 8.8 fL (7.4-11.0) 03/06/20 05:45 Neut % (Auto) 60.2 % (42.0-75.0) 03/06/20 05:45 Lymph % (Auto) 26.2 % (21.0-51.0) 03/06/20 05:45 [place] % (Auto) 8.5 % (0.0-13.0) 03/06/20 05:45 Eos % (Auto) 3.6 % (0.9-2.9) H 03/06/20 05:45 Baso % (Auto) 1.5 % (0.2-1.0) H 03/06/20 05:45 Neut # (Auto) 2.2 x10^3/uL (2.2-4.8) 03/06/20 05:45 Lymph # (Auto) 1.0 X10^3/uL (1.3-2.9) L 03/06/20 05:45 [place] # (Auto) 0.3 x10^3/uL (0.3-0.8) 03/06/20 05:45 Eos # (Auto) 0.1 x10^3/uL (0.0-0.2) 03/06/20 05:45 Baso # (Auto) 0.1 X10^3/uL (0.0-0.1) 03/06/20 05:45 Absolute Nucleated RBC 0.1 /100WBC 03/06/20 05:45 PT 39.3 SECONDS (11.8-14.3) 03/06/20 10:35 INR Target Range - 03/06/20 10:35 INR 4.21 (0.8-1.3) H 03/06/20 10:35 Sodium 143 mmol/L (136-145) 03/06/20 05:45 Corrected Sodium TNP 03/06/20 05:45 Potassium 3.8 mmol/L (3.5-5.1) 03/06/20 05:45 Chloride 108 mmol/L (98-107) H 03/06/20 05:45 Carbon Dioxide 21.6 mmol/L (21-32) 03/06/20 05:45 BUN 14 mg/dL (7-18) 03/06/20 05:45 Creatinine 1.28 mg/dL (0.55-1.02) H 03/06/20 05:45 Est GFR (MDRD) Af Amer 52 (>60) L 03/06/20 05:45 Est GFR (MDRD) Non-Af 43 (>60) L 03/06/20 05:45 Glucose 106 mg/dL (65-99) H 03/06/20 05:45 Calcium 9.1 mg/dL (8.5-10.1) 03/06/20 05:45 Corrected Calcium 9.9 mg/dL (8.5-10.1) 03/06/20 05:45 Ferritin 177 ng/mL (8-252) 03/05/20 14:45 Total Bilirubin 0.90 mg/dL (0.2-1.0) 03/06/20 05:45 AST 31 Units/L (15-37) 03/06/20 05:45 ALT 24 Units/L (12-78) 03/06/20 05:45 Alkaline Phosphatase 70 Units/L (46-116) 03/06/20 05:45 Lactate Dehydrogenase 320 Units/L (81-234) H 03/05/20 14:45 Creatine Kinase 73 Units/L (26-192) 03/06/20 05:45 CK-MB (CK-2) 1.6 ng/mL (0-4.0) 03/06/20 05:45 CK/CKMB % Calc 2.2 % (<4) 03/06/20 05:45 Troponin I 0.17 ng/mL (0-1.5) 03/06/20 05:45 B-Natriuretic Peptide 3020 pg/mL (0-79) H* 03/05/20 14:45 Total Protein 6.9 g/dL (6.4-8.2) 03/06/20 05:45 Albumin 3.0 g/dL (3.4-5.0) L 03/06/20 05:45 Globulin 3.9 g/dL (2.5-4.5) 03/06/20 05:45 Albumin/Globulin Ratio 0.8 Ratio (1.1-2.1) L 03/06/20 05:45 SARS CoV-2 RNA Rapid ALISHA Negative (NEGATIVE) 03/05/20 15:46 Review of Systems Constitutional: Weakness Eyes: No Symptoms Reported ENT: No Symptoms Reported Respiratory: Shortness of Breath and SOB with Excertion Cardiovascular: Orthopnea and Edema Gastrointestinal: Diarrhea Genitourinary: No Symptoms Reported Musculoskeletal: Back Pain Skin: No Symptoms Reported Neurological: No Symptoms Reported Physical Exam Vital Signs: Temperature 97.8 F Pulse Rate [Radial] 65 Pulse Rate 65 Respiratory Rate 18 Blood Pressure [Left Arm] 176/79 Blood Pressure [Right Arm] 177/75 Blood Pressure 170/79 O2 Sat by Pulse Oximetry 96 Oriented: Normal Eyes: Normal Ear: Normal Nose: Normal Respiratory: RLL Rales and LLL Rales Cardiovascular: Edema (2+ pitting edema in LE ) Auscultation: Bowel Sounds: Normal and Increased Tenderness: Epigastric and Mild Skin: Decreased Turgur Musculoskeletal: Back:Thoracic, Back:Lumbar and Back:Paraspinous Psychiatric: Normal Mood Description: Calm Speech Pattern: Clear and Appropriate Assessment/Plan (1) Acute exacerbation of CHF (congestive heart failure): Qualifiers: Heart failure type: unspecified Qualified Code(s): I50.9 - Heart failure, unspecified Status: Acute (2) Diarrhea in adult patient: Status: Acute (3) KACI (acute kidney injury): Status: Acute (4) Atrial fibrillation: Qualifiers: Atrial fibrillation type: unspecified Qualified Code(s): I48.91 - Unspecified atrial fibrillation Status: Chronic (5) Elevated INR: Status: Acute (6) Pacemaker: Status: Chronic (7) Pulmonary infiltrate: Status: Acute (8) Chronic back pain: Qualifiers: Back pain laterality: midline Back pain location: low back pain Sciatica presence: unspecified whether sciatica present Qualified Code(s): M54.5 - Low back pain; G89.29 - Other chronic pain; G89.29 - Other chronic pain Status: Chronic (9) Osteoarthritis: Qualifiers: Osteoarthritis location: multiple joints Osteoarthritis type: unspecified Qualified Code(s): M15.9 - Polyosteoarthritis, unspecified Status: Acute (10) Hypertension: Qualifiers: Hypertension type: essential hypertension Qualified Code(s): I10 - Essential (primary) hypertension Status: Chronic (11) Anemia: Qualifiers: Anemia type: iron deficiency Iron deficiency anemia type: unspecified iron deficiency Qualified Code(s): D50.9 - Iron deficiency anemia, unspecified Status: Chronic Review H&P Reviewed: Yes Patient was examined?: Yes
[2020-03-06 17:58] VITALS: BMI 22.8
[2020-03-06] MEDS: NEURONTIN CAP 100 MG PO SCH (21:08)
[2020-03-06] MEDS: FERROUS GLUCONATE PO SCH (21:08)
[2020-03-06] MEDS: ZOCOR TAB 40 MG PO SCH (21:08)
[2020-03-07] MEDS: BENTYL CAP 10 MG PO SCH ×3 (05:07→21:15)
[2020-03-07] MEDS: DUONEB 0.5 MG/3 MG (3 mL) NEB SCH ×3 (06:25→20:45)
[2020-03-07 06:51] LABS: EOSINOPHILS # (AUTO) 0.2 x10^3/uL (0.0-0.2); EOSINOPHILS % (AUTO) 3.5 % (0.9-2.9); HEMATOCRIT 35.6 % (36.0-47.0); HEMOGLOBIN 11.1 g/dL (12.0-16.0); LYMPHOCYTES # (AUTO) 1.5 X10^3/uL (1.3-2.9); LYMPHOCYTES % (AUTO) 35.4 % (21.0-51.0); MEAN CORPUSCULAR HEMOGLOBIN 26.6 pg (27.0-34.0); MEAN CORPUSCULAR HGB CONC 31.2 g/dL (33.0-35.0); MEAN CORPUSCULAR VOLUME 85.3 fL (80.0-100.0); MEAN PLATELET VOLUME 8.3 fL (7.4-11.0); MONOCYTES # (AUTO) 0.2 x10^3/uL (0.3-0.8); MONOCYTES % (AUTO) 5.2 % (0.0-13.0); NEUTROPHILS # (AUTO) 2.4 x10^3/uL (2.2-4.8); NEUTROPHILS % (AUTO) 54.9 % (42.0-75.0); PLATELET COUNT 117 X10^3/uL (150.0-450.0); RED BLOOD COUNT 4.18 X10^6/uL (3.5-5.4); RED CELL DISTRIBUTION WIDTH 18.5 % (11.6-16.5); WHITE BLOOD COUNT 4.4 X10^3/uL (3.6-10.0)
[2020-03-07 07:00] LABS: ALBUMIN 2.9 g/dL (3.4-5.0); CALCIUM 8.8 mg/dL (8.5-10.1); CARBON DIOXIDE 27.2 mmol/L (21-32); COR CA(FOR HYPOALB) 9.7 mg/dL (8.5-10.1); CREATININE 1.4 mg/dL (0.55-1.02); TOTAL PROTEIN 6.9 g/dL (6.4-8.2)
[2020-03-07] MEDS: PLAQUENIL PO SCH (09:05)
[2020-03-07] MEDS: ZEBETA TAB 5 MG PO SCH (09:06)
[2020-03-07] MEDS: PriLOSEC PO SCH (09:06)
[2020-03-07] MEDS: FOLIC ACID TAB 1 MG PO SCH (09:07)
[2020-03-07] MEDS: FERROUS GLUCONATE PO SCH ×2 (09:07→20:45)
[2020-03-07] MEDS: ROCEPHIN VIAL 1 GRAM 1 G in NS 100 ML IV + SPIKE MINIBAG* 100 ML IV SCH (09:07)
[2020-03-07] MEDS: LASIX IVP SCH ×2 (09:07→16:55)
[2020-03-07] MEDS ORDERED: NS 500 ML IV 500 ML IV SCH (10:00)
[2020-03-07] MEDS ORDERED: NS 500 ML IV 500 ML IV ONE (10:58)
[2020-03-07 12:53] LABS: BILIRUBIN,URINE NEGATIVE (NEGATIVE); BLOOD/HEMOGLOBIN,URINE NEGATIVE (NEGATIVE); GLUCOSE, URINE NEGATIVE (NEGATIVE); KETONES,URINE NEGATIVE (NEGATIVE); LEUKOCYTE ESTERASE ,URINE 1+ (NEGATIVE); NITRITES,URINE NEGATIVE (NEGATIVE); PROTEIN,URINE NEGATIVE (NEGATIVE); UROBILINOGEN,URINE NORMAL (NORMAL)
[2020-03-07 12:59] LABS: APPEARANCE,URINE CLEAR (CLEAR); COLOR,URINE YELLOW (YELLOW)
[2020-03-07 13:00] LABS: BACTERIA,URINE NEGATIVE /HPF (NEGATIVE); RBC,URINE NONE SEEN /HPF (0-3); SQUAMOUS EPITHELIAL CELL,UR RARE /HPF (NEGATIVE)
--- NOTE | 2020-03-07 13:47 | PCM.PROG ---
Progress Note Progress Note for Day of Date of Exam: 03/07/20 Subjective Subjective: Patient seen at bedside. No overnight events. She states she feels better. She is currently on 2L NC. She states she has been urinating a lot. No diarrhea since yesterday. She has been eating well. She states abdominal cramps have resolved. She has been ambulating in the room. She still has moderate leg swelling. Labs: - WBC 4.4 Hgb 11.1 Plt 117 BUN/Cr: 14/1.40 INR 3.97 - KUB (-) C.diff (-) Plan: will increase Lasix to 40 mg IV BID. Strict I/Os, daily weights. Continue Rocephin and duonebs. Wean O2 as tolerated. Hold warfarin, follow AM labs and INR. Echo pending. Past Medical Family Social History Past Med/Fam/Surg Hx: No changes since H&P Allergies: Allergies No Known Drug Allergies Allergy (Verified 09/26/19 14:10) Review of Systems ROS: No change since H&P Vital Signs and I&O's Vital Signs: Temperature 99.3 F Pulse Rate [Radial] 65 Pulse Rate 71 Respiratory Rate 18 Blood Pressure [Left Arm] 150/65 Blood Pressure [Right Arm] 123/67 Blood Pressure 170/79 O2 Sat by Pulse Oximetry 100 Intake and Output: Intake & Output 03/04/20 03/05/20 03/06/20 03/07/20 23:59 23:59 23:59 23:59 Intake Total 200 / 200 940 / 940 0 / 0 Output Total 350 / 350 Balance 200 / 200 590 / 590 0 / 0 Physical Exam Oriented: Normal Eyes: Normal Ear: Normal Nose: Normal Respiratory: Generalized and Rales Cardiovascular: Edema (2+ pitting edema in LE ) Auscultation: Bowel Sounds: Normal Tenderness: Normal Skin: Decreased Turgur Musculoskeletal: Back:Thoracic, Back:Lumbar and Back:Paraspinous Psychiatric: Normal Mood Description: Calm Speech Pattern: Clear and Appropriate Laboratory and Diagnostics Result Diagrams: 03/07/20 06:37 03/07/20 06:37 Labs: Laboratory WBC 4.4 X10^3/uL (3.6-10.0) 03/07/20 06:37 RBC 4.18 X10^6/uL (3.5-5.4) 03/07/20 06:37 Hgb 11.1 g/dL (12.0-16.0) L 03/07/20 06:37 Hct 35.6 % (36.0-47.0) L 03/07/20 06:37 MCV 85.3 fL (80.0-100.0) 03/07/20 06:37 MCH 26.6 pg (27.0-34.0) L 03/07/20 06:37 MCHC 31.2 g/dL (33.0-35.0) L 03/07/20 06:37 RDW 18.5 % (11.6-16.5) H 03/07/20 06:37 Plt Count 117 X10^3/uL (150.0-450.0) L 03/07/20 06:37 MPV 8.3 fL (7.4-11.0) 03/07/20 06:37 Neut % (Auto) 54.9 % (42.0-75.0) 03/07/20 06:37 Lymph % (Auto) 35.4 % (21.0-51.0) 03/07/20 06:37 [place] % (Auto) 5.2 % (0.0-13.0) 03/07/20 06:37 Eos % (Auto) 3.5 % (0.9-2.9) H 03/07/20 06:37 Baso % (Auto) 1.0 % (0.2-1.0) 03/07/20 06:37 Neut # (Auto) 2.4 x10^3/uL (2.2-4.8) 03/07/20 06:37 Lymph # (Auto) 1.5 X10^3/uL (1.3-2.9) 03/07/20 06:37 [place] # (Auto) 0.2 x10^3/uL (0.3-0.8) L 03/07/20 06:37 Eos # (Auto) 0.2 x10^3/uL (0.0-0.2) 03/07/20 06:37 Baso # (Auto) 0.0 X10^3/uL (0.0-0.1) 03/07/20 06:37 Absolute Nucleated RBC 0.1 /100WBC 03/07/20 06:37 PT 37.6 SECONDS (11.8-14.3) 03/07/20 06:37 INR Target Range - 03/07/20 06:37 INR 3.97 (0.8-1.3) H 03/07/20 06:37 Sodium 144 mmol/L (136-145) 03/07/20 06:37 Corrected Sodium 144 mmol/L (136-145) 03/07/20 06:37 Potassium 3.5 mmol/L (3.5-5.1) 03/07/20 06:37 Chloride 106 mmol/L (98-107) 03/07/20 06:37 Carbon Dioxide 27.2 mmol/L (21-32) 03/07/20 06:37 BUN 14 mg/dL (7-18) 03/07/20 06:37 Creatinine 1.40 mg/dL (0.55-1.02) H 03/07/20 06:37 Est GFR (MDRD) Af Amer 47 (>60) L 03/07/20 06:37 Est GFR (MDRD) Non-Af 39 (>60) L 03/07/20 06:37 Glucose 119 mg/dL (65-99) H 03/07/20 06:37 Calcium 8.8 mg/dL (8.5-10.1) 03/07/20 06:37 Corrected Calcium 9.7 mg/dL (8.5-10.1) 03/07/20 06:37 Ferritin 177 ng/mL (8-252) 03/05/20 14:45 Total Bilirubin 0.60 mg/dL (0.2-1.0) 03/07/20 06:37 AST 31 Units/L (15-37) 03/07/20 06:37 ALT 28 Units/L (12-78) 03/07/20 06:37 Alkaline Phosphatase 74 Units/L (46-116) 03/07/20 06:37 Lactate Dehydrogenase 320 Units/L (81-234) H 03/05/20 14:45 Creatine Kinase 73 Units/L (26-192) 03/06/20 05:45 CK-MB (CK-2) 1.6 ng/mL (0-4.0) 03/06/20 05:45 CK/CKMB % Calc 2.2 % (<4) 03/06/20 05:45 Troponin I 0.17 ng/mL (0-1.5) 03/06/20 05:45 B-Natriuretic Peptide 3020 pg/mL (0-79) H* 03/05/20 14:45 Total Protein 6.9 g/dL (6.4-8.2) 03/07/20 06:37 Albumin 2.9 g/dL (3.4-5.0) L 03/07/20 06:37 Globulin 4.0 g/dL (2.5-4.5) 03/07/20 06:37 Albumin/Globulin Ratio 0.7 Ratio (1.1-2.1) L 03/07/20 06:37 Specimen Type Clean catch urine 03/07/20 12:35 Urine Color Yellow (YELLOW) 03/07/20 12:35 Urine Appearance Clear (CLEAR) 03/07/20 12:35 Urine pH 5.0 (5.0 - 8.0) 03/07/20 12:35 Ur Specific [place] 1.015 (1.000-1.030) 03/07/20 12:35 Urine Protein Negative (NEGATIVE) 03/07/20 12:35 Urine Glucose (UA) Negative (NEGATIVE) 03/07/20 12:35 Urine Ketones Negative (NEGATIVE) 03/07/20 12:35 Urine Occult Blood Negative (NEGATIVE) 03/07/20 12:35 Urine Nitrite Negative (NEGATIVE) 03/07/20 12:35 Urine Bilirubin Negative (NEGATIVE) 03/07/20 12:35 Urine Urobilinogen Normal (NORMAL) 03/07/20 12:35 Ur Leukocyte Esterase 1+ (NEGATIVE) 03/07/20 12:35 Urine RBC None seen /HPF (0-3) 03/07/20 12:35 Urine WBC 3-5 /HPF (0-5) 03/07/20 12:35 Ur Squamous Epith Cells Rare /HPF (NEGATIVE) 03/07/20 12:35 Urine Bacteria Negative /HPF (NEGATIVE) 03/07/20 12:35 Ur Culture Indicated? No/not indicated 03/07/20 12:35 Stl C. diff Tox B Gene Negative (NEGATIVE) 03/07/20 00:10 Stl C. diff 027-NAP1-BI Negative (NEGATIVE) 03/07/20 00:10 SARS CoV-2 RNA Rapid ALISHA Negative (NEGATIVE) 03/05/20 15:46 Plan (1) Acute exacerbation of CHF (congestive heart failure): Status: Acute Qualifiers: Heart failure type: unspecified Qualified Code(s): I50.9 - Heart failure, unspecified (2) Diarrhea in adult patient: Status: Acute (3) KACI (acute kidney injury): Status: Acute (4) Atrial fibrillation: Status: Chronic Qualifiers: Atrial fibrillation type: unspecified Qualified Code(s): I48.91 - Unspecified atrial fibrillation (5) Elevated INR: Status: Acute (6) Pacemaker: Status: Chronic (7) Pulmonary infiltrate: Status: Acute (8) Chronic back pain: Status: Chronic Qualifiers: Back pain laterality: midline Back pain location: low back pain Sciatica presence: unspecified whether sciatica present Qualified Code(s): M54.5 - Low back pain; G89.29 - Other chronic pain; G89.29 - Other chronic pain (9) Osteoarthritis: Status: Acute Qualifiers: Osteoarthritis location: multiple joints Osteoarthritis type: unspecified Qualified Code(s): M15.9 - Polyosteoarthritis, unspecified (10) Hypertension: Status: Chronic Qualifiers: Hypertension type: essential hypertension Qualified Code(s): I10 - Essential (primary) hypertension (11) Anemia: Status: Chronic Qualifiers: Anemia type: iron deficiency Iron deficiency anemia type: unspecified iron deficiency Qualified Code(s): D50.9 - Iron deficiency anemia, unspecified
[2020-03-07] MEDS: NEURONTIN CAP 100 MG PO SCH (20:45)
[2020-03-07] MEDS: ZOCOR TAB 40 MG PO SCH (20:45)
[2020-03-07] MEDS: K-DUR TAB 20 MEQ PO SCH (20:45)
[2020-03-07] MEDS: NORCO 10/325 TAB PO PRN (23:25)
[2020-03-08] MEDS: BENTYL CAP 10 MG PO SCH ×3 (05:25→21:30)
[2020-03-08] MEDS: DUONEB 0.5 MG/3 MG (3 mL) NEB SCH ×2 (05:45→14:45)
[2020-03-08 07:07] LABS: ALANINE AMINOTRANSFERASE 26 Units/L (12-78); ALBUMIN 2.7 g/dL (3.4-5.0); ALKALINE PHOSPHATASE 66 Units/L (46-116); ASPARTATE AMINO TRANSFERASE 26 Units/L (15-37); BLOOD UREA NITROGEN 15 mg/dL (7-18); CALCIUM 8.6 mg/dL (8.5-10.1); CARBON DIOXIDE 30.8 mmol/L (21-32); CHLORIDE 102 mmol/L (98-107); COR CA(FOR HYPOALB) 9.6 mg/dL (8.5-10.1); CREATININE 1.12 mg/dL (0.55-1.02); SODIUM 140 mmol/L (136-145); TOTAL PROTEIN 6.6 g/dL (6.4-8.2); eGFR NON BLACK RACES 50 (>60)
[2020-03-08 07:09] LABS: BASOPHILS % (AUTO) 0.9 % (0.2-1.0); EOSINOPHILS # (AUTO) 0.2 x10^3/uL (0.0-0.2); EOSINOPHILS % (AUTO) 4.5 % (0.9-2.9); HEMATOCRIT 33.2 % (36.0-47.0); HEMOGLOBIN 10.4 g/dL (12.0-16.0); LYMPHOCYTES # (AUTO) 0.8 X10^3/uL (1.3-2.9); LYMPHOCYTES % (AUTO) 17.7 % (21.0-51.0); MEAN CORPUSCULAR HEMOGLOBIN 26.9 pg (27.0-34.0); MEAN CORPUSCULAR HGB CONC 31.5 g/dL (33.0-35.0); MEAN CORPUSCULAR VOLUME 85.2 fL (80.0-100.0); MEAN PLATELET VOLUME 8.8 fL (7.4-11.0); MONOCYTES # (AUTO) 0.4 x10^3/uL (0.3-0.8); MONOCYTES % (AUTO) 7.9 % (0.0-13.0); NEUTROPHILS # (AUTO) 3.2 x10^3/uL (2.2-4.8); PLATELET COUNT 114 X10^3/uL (150.0-450.0); RED BLOOD COUNT 3.89 X10^6/uL (3.5-5.4); RED CELL DISTRIBUTION WIDTH 18.3 % (11.6-16.5); WHITE BLOOD COUNT 4.7 X10^3/uL (3.6-10.0)
[2020-03-08] MEDS: PLAQUENIL PO SCH (10:00)
[2020-03-08] MEDS: ROCEPHIN VIAL 1 GRAM 1 G in NS 100 ML IV + SPIKE MINIBAG* 100 ML IV SCH (10:00)
[2020-03-08] MEDS: FOLIC ACID TAB 1 MG PO SCH (10:00)
[2020-03-08] MEDS: FERROUS GLUCONATE PO SCH ×2 (10:00→20:43)
[2020-03-08] MEDS: ZEBETA TAB 5 MG PO SCH (10:00)
[2020-03-08] MEDS: PriLOSEC PO SCH (10:00)
[2020-03-08] MEDS: LASIX IVP SCH ×2 (10:00→16:55)
[2020-03-08] MEDS: K-DUR TAB 20 MEQ PO SCH ×2 (10:02→20:43)
--- NOTE | 2020-03-08 11:12 | PCM.PROG ---
Progress Note Progress Note for Day of Date of Exam: 03/08/20 Subjective Subjective: Patient seen at bedside. No overnight events. She states she feels better today. She states her breathing is better. She is currently on 2L NC. She states she has been urinating a lot. No diarrhea, tolerating oral intake. Her leg swelling has improved. Labs: - WBC 4.7 Hgb 10.4 Plt 114 BUN/Cr: 15/1.12 INR 2.36 - KUB (-) C.diff (-) Plan: CXR ordered. ECHO pending. Continue Lasix 40 mg IV BID. Strict I/Os, daily weights. Continue Rocephin and duonebs. Wean O2 as tolerated. Resume warfarin. Follow AM labs. PT/OT as tolerated. Past Medical Family Social History Past Med/Fam/Surg Hx: No changes since H&P Allergies: Allergies No Known Drug Allergies Allergy (Verified 09/26/19 14:10) Review of Systems ROS: No change since H&P Vital Signs and I&O's Vital Signs: Temperature 97.1 F Pulse Rate [Radial] 74 Pulse Rate 65 Respiratory Rate 18 Blood Pressure [Left Arm] 140/66 Blood Pressure [Right Arm] 123/67 Blood Pressure 170/79 O2 Sat by Pulse Oximetry 100 Intake and Output: Intake & Output 03/05/20 03/06/20 03/07/20 03/08/20 23:59 23:59 23:59 23:59 Intake Total 200 / 200 940 / 940 1232 / 1232 110 / 110 Output Total 350 / 350 Balance 200 / 200 590 / 590 1232 / 1232 110 / 110 Physical Exam Oriented: Normal Eyes: Normal Ear: Normal Nose: Normal Respiratory: Right, Left, Inferior and Rales Cardiovascular: Edema (LE edema improved ) Auscultation: Bowel Sounds: Normal Tenderness: Normal Skin: Decreased Turgur Musculoskeletal: Back:Thoracic, Back:Lumbar and Back:Paraspinous Psychiatric: Normal Mood Description: Calm Speech Pattern: Clear and Appropriate Laboratory and Diagnostics Result Diagrams: 03/08/20 05:40 03/08/20 05:40 Labs: Laboratory WBC 4.7 X10^3/uL (3.6-10.0) 03/08/20 05:40 RBC 3.89 X10^6/uL (3.5-5.4) 03/08/20 05:40 Hgb 10.4 g/dL (12.0-16.0) L 03/08/20 05:40 Hct 33.2 % (36.0-47.0) L 03/08/20 05:40 MCV 85.2 fL (80.0-100.0) 03/08/20 05:40 MCH 26.9 pg (27.0-34.0) L 03/08/20 05:40 MCHC 31.5 g/dL (33.0-35.0) L 03/08/20 05:40 RDW 18.3 % (11.6-16.5) H 03/08/20 05:40 Plt Count 114 X10^3/uL (150.0-450.0) L 03/08/20 05:40 MPV 8.8 fL (7.4-11.0) 03/08/20 05:40 Neut % (Auto) 69.0 % (42.0-75.0) 03/08/20 05:40 Lymph % (Auto) 17.7 % (21.0-51.0) L 03/08/20 05:40 [place] % (Auto) 7.9 % (0.0-13.0) 03/08/20 05:40 Eos % (Auto) 4.5 % (0.9-2.9) H 03/08/20 05:40 Baso % (Auto) 0.9 % (0.2-1.0) 03/08/20 05:40 Neut # (Auto) 3.2 x10^3/uL (2.2-4.8) 03/08/20 05:40 Lymph # (Auto) 0.8 X10^3/uL (1.3-2.9) L 03/08/20 05:40 [place] # (Auto) 0.4 x10^3/uL (0.3-0.8) 03/08/20 05:40 Eos # (Auto) 0.2 x10^3/uL (0.0-0.2) 03/08/20 05:40 Baso # (Auto) 0.0 X10^3/uL (0.0-0.1) 03/08/20 05:40 Absolute Nucleated RBC 0.0 /100WBC 03/08/20 05:40 PT 25.1 SECONDS (11.8-14.3) 03/08/20 05:40 INR Target Range - 03/08/20 05:40 INR 2.36 (0.8-1.3) H 03/08/20 05:40 Sodium 140 mmol/L (136-145) 03/08/20 05:40 Corrected Sodium TNP 03/08/20 05:40 Potassium 3.5 mmol/L (3.5-5.1) 03/08/20 05:40 Chloride 102 mmol/L (98-107) 03/08/20 05:40 Carbon Dioxide 30.8 mmol/L (21-32) 03/08/20 05:40 BUN 15 mg/dL (7-18) 03/08/20 05:40 Creatinine 1.12 mg/dL (0.55-1.02) H 03/08/20 05:40 Est GFR (MDRD) Af Amer > 60 (>60) 03/08/20 05:40 Est GFR (MDRD) Non-Af 50 (>60) L 03/08/20 05:40 Glucose 95 mg/dL (65-99) 03/08/20 05:40 Calcium 8.6 mg/dL (8.5-10.1) 03/08/20 05:40 Corrected Calcium 9.6 mg/dL (8.5-10.1) 03/08/20 05:40 Ferritin 177 ng/mL (8-252) 03/05/20 14:45 Total Bilirubin 0.60 mg/dL (0.2-1.0) 03/08/20 05:40 AST 26 Units/L (15-37) 03/08/20 05:40 ALT 26 Units/L (12-78) 03/08/20 05:40 Alkaline Phosphatase 66 Units/L (46-116) 03/08/20 05:40 Lactate Dehydrogenase 320 Units/L (81-234) H 03/05/20 14:45 Creatine Kinase 73 Units/L (26-192) 03/06/20 05:45 CK-MB (CK-2) 1.6 ng/mL (0-4.0) 03/06/20 05:45 CK/CKMB % Calc 2.2 % (<4) 03/06/20 05:45 Troponin I 0.17 ng/mL (0-1.5) 03/06/20 05:45 B-Natriuretic Peptide 3020 pg/mL (0-79) H* 03/05/20 14:45 Total Protein 6.6 g/dL (6.4-8.2) 03/08/20 05:40 Albumin 2.7 g/dL (3.4-5.0) L 03/08/20 05:40 Globulin 3.9 g/dL (2.5-4.5) 03/08/20 05:40 Albumin/Globulin Ratio 0.7 Ratio (1.1-2.1) L 03/08/20 05:40 Specimen Type Clean catch urine 03/07/20 12:35 Urine Color Yellow (YELLOW) 03/07/20 12:35 Urine Appearance Clear (CLEAR) 03/07/20 12:35 Urine pH 5.0 (5.0 - 8.0) 03/07/20 12:35 Ur Specific [place] 1.015 (1.000-1.030) 03/07/20 12:35 Urine Protein Negative (NEGATIVE) 03/07/20 12:35 Urine Glucose (UA) Negative (NEGATIVE) 03/07/20 12:35 Urine Ketones Negative (NEGATIVE) 03/07/20 12:35 Urine Occult Blood Negative (NEGATIVE) 03/07/20 12:35 Urine Nitrite Negative (NEGATIVE) 03/07/20 12:35 Urine Bilirubin Negative (NEGATIVE) 03/07/20 12:35 Urine Urobilinogen Normal (NORMAL) 03/07/20 12:35 Ur Leukocyte Esterase 1+ (NEGATIVE) 03/07/20 12:35 Urine RBC None seen /HPF (0-3) 03/07/20 12:35 Urine WBC 3-5 /HPF (0-5) 03/07/20 12:35 Ur Squamous Epith Cells Rare /HPF (NEGATIVE) 03/07/20 12:35 Urine Bacteria Negative /HPF (NEGATIVE) 03/07/20 12:35 Ur Culture Indicated? No/not indicated 03/07/20 12:35 Stl C. diff Tox B Gene Negative (NEGATIVE) 03/07/20 00:10 Stl C. diff 027-NAP1-BI Negative (NEGATIVE) 03/07/20 00:10 SARS CoV-2 RNA Rapid ALISHA Negative (NEGATIVE) 03/05/20 15:46 Plan (1) Acute exacerbation of CHF (congestive heart failure): Status: Acute Qualifiers: Heart failure type: unspecified Qualified Code(s): I50.9 - Heart failure, unspecified (2) Diarrhea in adult patient: Status: Inactive (3) KACI (acute kidney injury): Status: Acute (4) Atrial fibrillation: Status: Chronic Qualifiers: Atrial fibrillation type: unspecified Qualified Code(s): I48.91 - Unspecified atrial fibrillation (5) Elevated INR: Status: Inactive (6) Pacemaker: Status: Chronic (7) Pulmonary infiltrate: Status: Inactive (8) Chronic back pain: Status: Chronic Qualifiers: Back pain laterality: midline Back pain location: low back pain Sciatica presence: unspecified whether sciatica present Qualified Code(s): M54.5 - Low back pain; G89.29 - Other chronic pain; G89.29 - Other chronic pain (9) Osteoarthritis: Status: Inactive Qualifiers: Osteoarthritis location: multiple joints Osteoarthritis type: unspecified Qualified Code(s): M15.9 - Polyosteoarthritis, unspecified (10) Hypertension: Status: Chronic Qualifiers: Hypertension type: essential hypertension Qualified Code(s): I10 - Essential (primary) hypertension (11) Anemia: Status: Chronic Qualifiers: Anemia type: iron deficiency Iron deficiency anemia type: unspecified iron deficiency Qualified Code(s): D50.9 - Iron deficiency anemia, unspecified
--- NOTE | 2020-03-08 12:46 | RAD ---
HISTORYSOBSTUDYCHEST, 1 [id number] is less opacity in the lungs than previously. This is probably improved venous congestion and pulmonary edema. There may be a small left pleural effusion still remain. No pneumothorax.Cardiomegaly is present.Bones are unremarkable.Left subclavian ICD is present with leads in expected location. EKG leads are noted. Right shoulder prosthesis is present.IMPRESSION1. Improved venous congestion and pulmonary edema2. Stable cardiomegalyElectronically signed by: Anibal Kenney (Mar 08, 2020 12:44:28)
[2020-03-08] MEDS: NEURONTIN CAP 100 MG PO SCH (20:43)
[2020-03-08] MEDS: ZOCOR TAB 40 MG PO SCH (20:43)
[2020-03-08] MEDS ORDERED: COUMADIN TAB 5 MG (JANTOVEN) PO SCH (21:00)
[2020-03-09] MEDS: DUONEB 0.5 MG/3 MG (3 mL) NEB SCH ×2 (01:33→06:00)
[2020-03-09] MEDS: NORCO 10/325 TAB PO PRN (01:50)
[2020-03-09] MEDS: BENTYL CAP 10 MG PO SCH ×2 (05:30→13:44)
[2020-03-09 06:18] LABS: BASOPHILS % (AUTO) 0.9 % (0.2-1.0); EOSINOPHILS # (AUTO) 0.2 x10^3/uL (0.0-0.2); EOSINOPHILS % (AUTO) 4.2 % (0.9-2.9); HEMATOCRIT 33.6 % (36.0-47.0); HEMOGLOBIN 10.6 g/dL (12.0-16.0); LYMPHOCYTES # (AUTO) 0.8 X10^3/uL (1.3-2.9); LYMPHOCYTES % (AUTO) 15.9 % (21.0-51.0); MEAN CORPUSCULAR HEMOGLOBIN 26.6 pg (27.0-34.0); MEAN CORPUSCULAR HGB CONC 31.6 g/dL (33.0-35.0); MEAN CORPUSCULAR VOLUME 84.2 fL (80.0-100.0); MEAN PLATELET VOLUME 8.4 fL (7.4-11.0); MONOCYTES # (AUTO) 0.3 x10^3/uL (0.3-0.8); MONOCYTES % (AUTO) 6.9 % (0.0-13.0); NEUTROPHILS # (AUTO) 3.4 x10^3/uL (2.2-4.8); NEUTROPHILS % (AUTO) 72.1 % (42.0-75.0); PLATELET COUNT 127 X10^3/uL (150.0-450.0); RED BLOOD COUNT 3.99 X10^6/uL (3.5-5.4); RED CELL DISTRIBUTION WIDTH 18.2 % (11.6-16.5); WHITE BLOOD COUNT 4.7 X10^3/uL (3.6-10.0)
[2020-03-09 06:35] LABS: ALANINE AMINOTRANSFERASE 24 Units/L (12-78); ALBUMIN 2.8 g/dL (3.4-5.0); ALKALINE PHOSPHATASE 68 Units/L (46-116); ASPARTATE AMINO TRANSFERASE 29 Units/L (15-37); BLOOD UREA NITROGEN 19 mg/dL (7-18); CARBON DIOXIDE 33.6 mmol/L (21-32); CHLORIDE 101 mmol/L (98-107); COR NA(FOR HYPERGLY) 140 mmol/L (136-145); CREATININE 1.11 mg/dL (0.55-1.02); SODIUM 140 mmol/L (136-145); eGFR NON BLACK RACES 50 (>60)
[2020-03-09] MEDS: K-DUR TAB 20 MEQ PO SCH (08:22)
[2020-03-09] MEDS: FOLIC ACID TAB 1 MG PO SCH (08:22)
[2020-03-09] MEDS: FERROUS GLUCONATE PO SCH (08:22)
[2020-03-09] MEDS: ROCEPHIN VIAL 1 GRAM 1 G in NS 100 ML IV + SPIKE MINIBAG* 100 ML IV SCH (08:23)
[2020-03-09] MEDS: PLAQUENIL PO SCH (08:23)
[2020-03-09] MEDS: PriLOSEC PO SCH (08:23)
[2020-03-09] MEDS: ZEBETA TAB 5 MG PO SCH (08:24)
[2020-03-09] MEDS ORDERED: LASIX PO SCH (09:00)
[2020-03-09 11:15] VITALS: BP 119/64
--- NOTE | 2020-03-09 11:43 | W.DIS.FURT ---
Summary of Discharge Admission Diagnosis Patient Problems (Updated 03/08/20 @ 10:56 by Shelley Dominguez) KACI (acute kidney injury) (Acute) N17.9 Infectious diarrhea in adult patient (Acute) A09 Acute exacerbation of CHF (congestive heart failure) (Acute) I50.9 Vital Signs: Vital Signs (72 hours) 03/06/20 12:00 03/06/20 13:12 03/06/20 16:00 Temperature 97.8 F 97.4 F L Pulse Rate Pulse Rate [Radial] 65 74 Respiratory Rate 18 20 Blood Pressure Blood Pressure [Left Arm] 176/79 152/72 Blood Pressure [Right Arm] O2 Sat by Pulse Oximetry 97 96 94 L 03/06/20 20:00 03/06/20 20:30 03/07/20 00:00 Temperature 98.5 F 98 F Pulse Rate 65 Pulse Rate [Radial] 66 87 Respiratory Rate 22 22 Blood Pressure Blood Pressure [Left Arm] 154/73 141/85 Blood Pressure [Right Arm] O2 Sat by Pulse Oximetry 100 99 99 03/07/20 04:00 03/07/20 06:25 03/07/20 08:00 Temperature 97.6 F 98.3 F Pulse Rate 71 Pulse Rate [Radial] 65 68 Respiratory Rate 20 18 Blood Pressure Blood Pressure [Left Arm] 134/67 150/65 Blood Pressure [Right Arm] O2 Sat by Pulse Oximetry 100 99 100 03/07/20 12:00 03/07/20 16:00 03/07/20 20:00 Temperature 99.3 F 98.7 F 98.3 F Pulse Rate Pulse Rate [Radial] 65 70 69 Respiratory Rate 18 18 20 Blood Pressure Blood Pressure [Left Arm] 165/74 169/74 Blood Pressure [Right Arm] 123/67 O2 Sat by Pulse Oximetry 100 98 99 03/07/20 20:45 03/07/20 23:25 03/08/20 00:00 Temperature 98.5 F Pulse Rate 68 Pulse Rate [Radial] 73 Respiratory Rate 18 18 Blood Pressure Blood Pressure [Left Arm] 172/78 Blood Pressure [Right Arm] O2 Sat by Pulse Oximetry 98 98 03/08/20 00:25 03/08/20 04:00 03/08/20 05:45 Temperature 98.8 F Pulse Rate 65 Pulse Rate [Radial] 68 Respiratory Rate 18 18 Blood Pressure Blood Pressure [Left Arm] 131/63 Blood Pressure [Right Arm] O2 Sat by Pulse Oximetry 100 100 03/08/20 08:00 03/08/20 12:00 03/08/20 14:45 Temperature 97.1 F L 97.8 F Pulse Rate Pulse Rate [Radial] 74 71 Respiratory Rate 18 18 Blood Pressure Blood Pressure [Left Arm] 140/66 145/70 Blood Pressure [Right Arm] O2 Sat by Pulse Oximetry 100 100 97 03/08/20 16:00 03/08/20 20:00 03/09/20 00:00 Temperature 97.4 F L 97.7 F 97.7 F Pulse Rate Pulse Rate [Radial] 73 72 69 Respiratory Rate 18 18 20 Blood Pressure Blood Pressure [Left Arm] 151/68 138/66 172/70 Blood Pressure [Right Arm] O2 Sat by Pulse Oximetry 96 98 98 03/09/20 01:50 03/09/20 02:50 03/09/20 04:00 Temperature 97.7 F Pulse Rate Pulse Rate [Radial] 68 Respiratory Rate 18 18 18 Blood Pressure Blood Pressure [Left Arm] 148/66 Blood Pressure [Right Arm] O2 Sat by Pulse Oximetry 99 03/09/20 06:00 03/09/20 08:00 03/09/20 10:00 Temperature 98.4 F 98.4 F Pulse Rate 74 Pulse Rate [Radial] 75 Respiratory Rate 20 20 Blood Pressure 170/79 Blood Pressure [Left Arm] 132/62 Blood Pressure [Right Arm] O2 Sat by Pulse Oximetry 98 96 96 03/09/20 11:13 Temperature 98.5 F Pulse Rate Pulse Rate [Radial] 68 Respiratory Rate 20 Blood Pressure Blood Pressure [Left Arm] 119/64 Blood Pressure [Right Arm] O2 Sat by Pulse Oximetry 91 L Labs: Laboratory Last Values WBC 4.7 X10^3/uL (3.6-10.0) 03/09/20 05:40 RBC 3.99 X10^6/uL (3.5-5.4) 03/09/20 05:40 Hgb 10.6 g/dL (12.0-16.0) L 03/09/20 05:40 Hct 33.6 % (36.0-47.0) L 03/09/20 05:40 MCV 84.2 fL (80.0-100.0) 03/09/20 05:40 MCH 26.6 pg (27.0-34.0) L 03/09/20 05:40 MCHC 31.6 g/dL (33.0-35.0) L 03/09/20 05:40 RDW 18.2 % (11.6-16.5) H 03/09/20 05:40 Plt Count 127 X10^3/uL (150.0-450.0) L 03/09/20 05:40 MPV 8.4 fL (7.4-11.0) 03/09/20 05:40 Neut % (Auto) 72.1 % (42.0-75.0) 03/09/20 05:40 Lymph % (Auto) 15.9 % (21.0-51.0) L 03/09/20 05:40 [place] % (Auto) 6.9 % (0.0-13.0) 03/09/20 05:40 Eos % (Auto) 4.2 % (0.9-2.9) H 03/09/20 05:40 Baso % (Auto) 0.9 % (0.2-1.0) 03/09/20 05:40 Neut # (Auto) 3.4 x10^3/uL (2.2-4.8) 03/09/20 05:40 Lymph # (Auto) 0.8 X10^3/uL (1.3-2.9) L 03/09/20 05:40 [place] # (Auto) 0.3 x10^3/uL (0.3-0.8) 03/09/20 05:40 Eos # (Auto) 0.2 x10^3/uL (0.0-0.2) 03/09/20 05:40 Baso # (Auto) 0.0 X10^3/uL (0.0-0.1) 03/09/20 05:40 Absolute Nucleated RBC 0.1 /100WBC 03/09/20 05:40 PT 17.8 SECONDS (11.8-14.3) 03/09/20 05:40 INR Target Range - 03/09/20 05:40 INR 1.51 (0.8-1.3) H 03/09/20 05:40 Sodium 140 mmol/L (136-145) 03/09/20 05:40 Corrected Sodium 140 mmol/L (136-145) 03/09/20 05:40 Potassium 3.8 mmol/L (3.5-5.1) 03/09/20 05:40 Chloride 101 mmol/L (98-107) 03/09/20 05:40 Carbon Dioxide 33.6 mmol/L (21-32) H 03/09/20 05:40 BUN 19 mg/dL (7-18) H 03/09/20 05:40 Creatinine 1.11 mg/dL (0.55-1.02) H 03/09/20 05:40 Est GFR (MDRD) Af Amer > 60 (>60) 03/09/20 05:40 Est GFR (MDRD) Non-Af 50 (>60) L 03/09/20 05:40 Glucose 117 mg/dL (65-99) H 03/09/20 05:40 Calcium 9.0 mg/dL (8.5-10.1) 03/09/20 05:40 Corrected Calcium 10.0 mg/dL (8.5-10.1) 03/09/20 05:40 Ferritin 177 ng/mL (8-252) 03/05/20 14:45 Total Bilirubin 0.60 mg/dL (0.2-1.0) 03/09/20 05:40 AST 29 Units/L (15-37) 03/09/20 05:40 ALT 24 Units/L (12-78) 03/09/20 05:40 Alkaline Phosphatase 68 Units/L (46-116) 03/09/20 05:40 Lactate Dehydrogenase 320 Units/L (81-234) H 03/05/20 14:45 Creatine Kinase 73 Units/L (26-192) 03/06/20 05:45 CK-MB (CK-2) 1.6 ng/mL (0-4.0) 03/06/20 05:45 CK/CKMB % Calc 2.2 % (<4) 03/06/20 05:45 Troponin I 0.17 ng/mL (0-1.5) 03/06/20 05:45 B-Natriuretic Peptide 3020 pg/mL (0-79) H* 03/05/20 14:45 Total Protein 7.0 g/dL (6.4-8.2) 03/09/20 05:40 Albumin 2.8 g/dL (3.4-5.0) L 03/09/20 05:40 Globulin 4.2 g/dL (2.5-4.5) 03/09/20 05:40 Albumin/Globulin Ratio 0.7 Ratio (1.1-2.1) L 03/09/20 05:40 Specimen Type Clean catch urine 03/07/20 12:35 Urine Color Yellow (YELLOW) 03/07/20 12:35 Urine Appearance Clear (CLEAR) 03/07/20 12:35 Urine pH 5.0 (5.0 - 8.0) 03/07/20 12:35 Ur Specific [place] 1.015 (1.000-1.030) 03/07/20 12:35 Urine Protein Negative (NEGATIVE) 03/07/20 12:35 Urine Glucose (UA) Negative (NEGATIVE) 03/07/20 12:35 Urine Ketones Negative (NEGATIVE) 03/07/20 12:35 Urine Occult Blood Negative (NEGATIVE) 03/07/20 12:35 Urine Nitrite Negative (NEGATIVE) 03/07/20 12:35 Urine Bilirubin Negative (NEGATIVE) 03/07/20 12:35 Urine Urobilinogen Normal (NORMAL) 03/07/20 12:35 Ur Leukocyte Esterase 1+ (NEGATIVE) 03/07/20 12:35 Urine RBC None seen /HPF (0-3) 03/07/20 12:35 Urine WBC 3-5 /HPF (0-5) 03/07/20 12:35 Ur Squamous Epith Cells Rare /HPF (NEGATIVE) 03/07/20 12:35 Urine Bacteria Negative /HPF (NEGATIVE) 03/07/20 12:35 Ur Culture Indicated? No/not indicated 03/07/20 12:35 Stl C. diff Tox B Gene Negative (NEGATIVE) 03/07/20 00:10 Stl C. diff [id number] Negative (NEGATIVE) 03/07/20 00:10 SARS CoV-2 RNA Rapid ALISHA Negative (NEGATIVE) 03/05/20 15:46 Reason For Visit: ACUTE OR CHRONIC CHF,KACI,DIARRHEA ILLNESS Discharge Diagnosis All Active Problems (Updated 03/08/20 @ 10:56 by Shelley Dominguez) KACI (acute kidney injury) (Acute) Infectious diarrhea in adult patient (Acute) Pacemaker (Chronic) Atrial fibrillation (Chronic) Acute exacerbation of CHF (congestive heart failure) (Acute) Arthritis (Chronic) Chronic back pain (Chronic) Hypertension (Chronic) Hyperlipidemia (Chronic) Depression (Chronic) Anemia (Chronic) Contusion of shoulder (Chronic) Plan of Treatment: Continue with present treatment and follow up plan. Pt is to keep follow up appointment as instructed and take medications as ordered. Discharge Medications Discharge Medications: No Known Drug Allergies Allergy (Verified 09/26/19 14:10) New Prescriptions furosemide 40 mg PO BID@0900,1700 30 Days #60 tab 03/09/20 [Rx] Discharge Plan Discharge Plan Patient Disposition: 01 HOME, SELF-CARE Condition: Stable Health Concerns: Post Hospitalization: new medications and changes needed to prevent readmission or further decline. Pt educated and given instructions on all concerns. Plan of Treatment: Continue with present treatment and follow up plan. Pt is to keep follow up appointment as instructed and take medications as ordered. Prescription drug monitoring program results: PDMP reviewed and no concerns identified Prescriptions: New furosemide 40 mg Tablet 40 mg PO BID@0900,1700 30 Days Qty: 60 RF: 0 gabapentin 100 mg Capsule 200 mg PO HS 30 Days Qty: 60 RF: 0 Continued losartan 50 MG tablet 100 mg PO DAILY RF: 0 Simvastatin 40 MG Tab 40 mg PO HS RF: 0 warfarin 5 MG tablet 5 mg PO HS Qty: 30 RF: 3 folic acid 1 mg tablet 1 mg PO DAILY RF: 0 hydroxychloroquine 200 mg tablet 150 mg PO DAILY RF: 0 Bystolic 5 mg tablet 10 mg PO DAILY Qty: 0 RF: 0 hydrocodone-acetaminophen 10-325 mg tablet 1 tab PO BID PRN (Reason: Pain) RF: 0 tramadol 50 mg tablet 50 mg PO TID PRN (Reason: Pain) RF: 0 ferrous gluconate 324 mg (38 mg iron) tablet 324 mg PO BID RF: 0 omeprazole 40 mg capsule,delayed release(DR/EC) 40 mg PO DAILY RF: 0 Discontinued sertraline 100 MG tablet 100 mg PO DAILY RF: 0 furosemide 20 mg tablet 20 mg PO DAILY RF: 0 ondansetron 4 mg tablet,disintegrating 4 mg PO TID PRNRF: 0 docusate sodium [Colace] 100 mg capsule 100 mg PO BID RF: 0 Follow ups/Referrals Follow ups/Referrals: Martina Harper [Primary Care Provider] - 1 WEEK Instructions Stand Alone Forms: Excuse From Work or School, Precautions for COVID19, Patient Portal, Social Distancing
== END 2020-03-09 15:05 | disposition home or self-care (01) | DRG 292 ==
LOC: ER 13:57 → MED/SURG 18:13
PROVIDERS: ADMIT Internal Medicine; ATTEND Internal Medicine

== ENCOUNTER 2020-11-01 11:30 | Observation (INO) ==
[2020-11-01 11:49] VITALS: BMI 18.5
--- NOTE | 2020-11-01 12:46 | DR.GENAD ---
HPI Time Seen Time Seen by Provider: 11/01/20 12:40 Complaint/Symptoms Chief Complaint Doctors Comments: cough, SOB, red tinged sputum, x several days. covid vaccine x 1 dose some 2-3 mo ago. Chief Complaint:: PT. C/O WEAKNESS, DYSURIA, COUGHING UP BLOOD AND POSSIBLE CHF. PT. STATES SHE HAS FELT WORSE WITHIN THE LAST WEEK. PT. C/O PAIN TO CHEST WHEN SHE COUGHS. COVID-19 Coronavirus risk:travel/contact w/high risk person: No Has patient experienced Coronavirus symptoms: Yes Coronavirus symptoms experienced: Coughing Source History Provided: Patient and EMS Mode of Arrival Mode of Arrival: EMS Timing Onset of Chief Complaint: 10/27/20 PMH PMH Past Medical History: Yes Past Medical History: Coronary Artery Disease and Hypertension Past Surgical History: Yes Surgical History: Ortho Surgery Family History History of Family Medical Conditions: Yes Family Medical History: Hypertension Social History Does patient currently use any type of tobacco product: No Have you used tobacco products in the last 12 months: No Type of Tobacco Use: None Does any household member use tobacco: No Alcohol Use: None Do you use any recreational Drugs:: No Lives With: Family Lives Where: Home Travel Risk Coronavirus risk:travel/contact w/high risk person: No Has patient experienced Coronavirus symptoms: Yes Coronavirus symptoms experienced: Coughing Infectious screening In the last 2 months have you had wt loss of >10#?: NO Have you had fever, night sweats or hemotysis?: No Have you traveled outside the country in the last 6 months?: No Isolation: Standard ROS Review of Systems Constitutional: See HPI Eyes: No Symptoms Reported ENTM: No Symptoms Reported Respiratoy: See HPI Cardiovascular: See HPI Gastrointestinal/Abdominal: See HPI Genitourinary: No Symptoms Reported Neurological: No Symptoms Reported Musculoskeletal: No Symptoms Reported Integumentary: No Symptoms Reported Hematologic/Lymphatic: No Symptoms Reported Endocrine: No Symptoms Reported Psychiatric: No Symptoms Reported All Other Systems: Reviewed and Negative PE Vital Signs Vitals: Temperature 97.4 F Pulse Rate 75 Respiratory Rate 18 Blood Pressure [Left Arm] 171/77 Blood Pressure [Right Arm] 120/71 Blood Pressure [Left Arm] 128/60 Blood Pressure 141/57 O2 Sat by Pulse Oximetry 94 General General Appearance: Alert, Anxious and In Distress Head Head Exam: Normal Inspection, Atraumatic and Normocephalic Eyes Eye exam: Normal Appearance and PERRL ENT ENT Exam: Normal Exam and Mucous Membranes Dry External Ear Exam: Normal External Inspection Nose Exam: Normal Nose Exam; negative Sinus Tenderness Mouth Exam: Normal Inspection Throat Exam: Normal Inspection Neck Neck Exam: Normal Inspection and Full ROM Chest Chest Inspection: Normal Inspection Respiratory Respiratory Exam: Normal Lung Sounds Bilat; negative Accessory Muscle Use Cardiovascular Cardiovascular Exam: Regular Rate and Normal Heart Sounds Abdominal Exam Abdominal Exam: Normal Inspection and Normal Bowel Sounds Extremities Extremities Exam: Normal Inspection and Full ROM Back Back Exam: Normal Inspection and Full ROM Neurologic Neurological Exam: Alert and Oriented X3 Skin Skin Exam: Warm, Dry and Intact ROR Labs Reviewed Laboratory Results Reviewed?: Yes Result Diagrams: 11/01/20 13:11 11/01/20 13:11 Laboratory: WBC 6.4 X10^3/uL (3.6-10.0) 11/01/20 13:11 RBC 3.46 X10^6/uL (3.5-5.4) L 11/01/20 13:11 Hgb 9.6 g/dL (12.0-16.0) L 11/01/20 13:11 Hct 28.8 % (36.0-47.0) L 11/01/20 13:11 MCV 83.3 fL (80.0-100.0) 11/01/20 13:11 MCH 27.7 pg (27.0-34.0) 11/01/20 13:11 MCHC 33.2 g/dL (33.0-35.0) 11/01/20 13:11 RDW 15.0 % (11.6-16.5) 11/01/20 13:11 Plt Count 258 X10^3/uL (150.0-450.0) 11/01/20 13:11 MPV 7.5 fL (7.4-11.0) 11/01/20 13:11 Neut % (Auto) 86.3 % (42.0-75.0) H 11/01/20 13:11 Lymph % (Auto) 6.8 % (21.0-51.0) L 11/01/20 13:11 [place] % (Auto) 5.5 % (0.0-13.0) 11/01/20 13:11 Eos % (Auto) 1.0 % (0.9-2.9) 11/01/20 13:11 Baso % (Auto) 0.4 % (0.2-1.0) 11/01/20 13:11 Neut # (Auto) 5.6 x10^3/uL (2.2-4.8) H 11/01/20 13:11 Lymph # (Auto) 0.4 X10^3/uL (1.3-2.9) L 11/01/20 13:11 [place] # (Auto) 0.4 x10^3/uL (0.3-0.8) 11/01/20 13:11 Eos # (Auto) 0.1 x10^3/uL (0.0-0.2) 11/01/20 13:11 Baso # (Auto) 0.0 X10^3/uL (0.0-0.1) 11/01/20 13:11 Absolute Nucleated RBC 0.0 /100WBC 11/01/20 13:11 D-Dimer 2.53 ug/ml (0.0-0.57) H* 11/01/20 13:11 Sample Site Lr 11/01/20 12:50 ABG pH 7.500 (7.35-7.45) H 11/01/20 12:50 ABG pCO2 35.0 mmHg (35.0-45.0) 11/01/20 12:50 ABG pO2 64.0 mmHg (80.0-100.0) L 11/01/20 12:50 ABG HCO3 27.3 mmol/L (22-26) H 11/01/20 12:50 ABG O2 Saturation 94.0 % (90-100) 11/01/20 12:50 ABG Base Excess 4.2 mmol/L (-2.0-2.0) H 11/01/20 12:50 Pedro Test Pos 11/01/20 12:50 A-a Gradient 42.0 mmHg 11/01/20 12:50 FiO2 21.0 11/01/20 12:50 Blood Gas Comments Ophelia well. sd 11/01/20 12:50 Sodium 137 mmol/L (136-145) 11/01/20 13:11 Corrected Sodium 137 mmol/L (136-145) 11/01/20 13:11 Potassium 4.0 mmol/L (3.5-5.1) 11/01/20 13:11 Chloride 102 mmol/L (98-107) 11/01/20 13:11 Carbon Dioxide 27.1 mmol/L (21-32) 11/01/20 13:11 BUN 26 mg/dL (7-18) H 11/01/20 13:11 Creatinine 1.24 mg/dL (0.55-1.02) H 11/01/20 13:11 Est GFR (MDRD) Af Amer 54 (>60) L 11/01/20 13:11 Est GFR (MDRD) Non-Af 44 (>60) L 11/01/20 13:11 Glucose 115 mg/dL (65-99) H 11/01/20 13:11 Calcium 8.7 mg/dL (8.5-10.1) 11/01/20 13:11 Corrected Calcium 9.9 mg/dL (8.5-10.1) 11/01/20 13:11 Ferritin 2726 ng/mL (8-252) H 11/01/20 13:11 Total Bilirubin 0.60 mg/dL (0.2-1.0) 11/01/20 13:11 AST 200 Units/L (15-37) H 11/01/20 13:11 ALT 109 Units/L (12-78) H 11/01/20 13:11 Alkaline Phosphatase 79 Units/L (46-116) 11/01/20 13:11 C-Reactive Protein 213.50 mg/L (0-3.0) H 11/01/20 13:11 B-Natriuretic Peptide 203 pg/mL (0-79) H 11/01/20 13:11 Total Protein 7.1 g/dL (6.4-8.2) 11/01/20 13:11 Albumin 2.5 g/dL (3.4-5.0) L 11/01/20 13:11 Globulin 4.6 g/dL (2.5-4.5) H 11/01/20 13:11 Albumin/Globulin Ratio 0.5 Ratio (1.1-2.1) L 11/01/20 13:11 Specimen Type Catherized urine 11/01/20 14:01 Urine Color Yellow (YELLOW) 11/01/20 14:01 Urine Appearance Cloudy (CLEAR) 11/01/20 14:01 Urine pH 5.0 (5.0 - 8.0) 11/01/20 14:01 Ur Specific [place] 1.020 (1.000-1.030) 11/01/20 14:01 Urine Protein 2+ (NEGATIVE) 11/01/20 14:01 Urine Glucose (UA) Negative (NEGATIVE) 11/01/20 14:01 Urine Ketones Negative (NEGATIVE) 11/01/20 14:01 Urine Occult Blood 2+ (NEGATIVE) 11/01/20 14:01 Urine Nitrite Negative (NEGATIVE) 11/01/20 14:01 Urine Bilirubin Negative (NEGATIVE) 11/01/20 14:01 Urine Urobilinogen 1+ (NORMAL) 11/01/20 14:01 Ur Leukocyte Esterase 3+ (NEGATIVE) 11/01/20 14:01 Urine RBC 3-5 /HPF (0-3) A 11/01/20 14:01 Urine WBC Tntc /HPF (0-5) A 11/01/20 14:01 Ur Squamous Epith Cells Few /HPF (NEGATIVE) 11/01/20 14:01 Ur Transition Epith Cell Few /HPF (NEGATIVE) 11/01/20 14:01 Urine Bacteria 4+ /HPF (NEGATIVE) 11/01/20 14:01 Urine Mucus Few /HPF (NEGATIVE) 11/01/20 14:01 Ur Culture Indicated? Yes/culture set up 11/01/20 14:01 SARS CoV-2 RNA Rapid ALISHA Positive (NEGATIVE) A 11/01/20 13:34 XRAY X-ray Results: small PE w assoc pos COVID findings Opioid Opioid Risk Tool Age (Agustin box if 16-45): No History of Preadolescent Sexual Abuse: No Total: 0 Total Score Risk Category: Low Risk Copyright: Maxim KURTZ predicting aberrant behaviors Procedures Procedure Comments Procedures: regen in ED Diagnosis Discharge Problem: COVID, Pulmonary emboli ADDITIONAL NOTES Additional Notes Additional Notes: admit to dr hardy
[2020-11-01 12:56] LABS: ABG ALLEN TEST POS; ABG BASE EXCESS 4.2 mmol/L (-2.0-2.0); ABG HCO3 27.3 mmol/L (22-26)
--- NOTE | 2020-11-01 13:28 | RAD ---
HISTORYCOUGH, SOB CAD, HTN, ORTHO, PACEMAKERSTUDYCHEST, 1 VIEWCOMPARISONJune 2020FINDINGSThe trachea is midline. The cardiac silhouette is stable as is a left-sided pacing device. The lungs demonstrate hazy infiltrates in the left lung base and scattered throughout the right lung probably due to pneumonia. The bony thorax is unremarkable.IMPRESSIONHazy opacities throughout the right lung and left lung base probably due to early changes pneumoniaElectronically signed by: DANNI MCDANIEL (Nov 01, 2020 13:26:22)
[2020-11-01 13:30] LABS: BASOPHILS % (AUTO) 0.4 % (0.2-1.0); EOSINOPHILS # (AUTO) 0.1 x10^3/uL (0.0-0.2); HEMATOCRIT 28.8 % (36.0-47.0); HEMOGLOBIN 9.6 g/dL (12.0-16.0); LYMPHOCYTES # (AUTO) 0.4 X10^3/uL (1.3-2.9); LYMPHOCYTES % (AUTO) 6.8 % (21.0-51.0); MEAN CORPUSCULAR HEMOGLOBIN 27.7 pg (27.0-34.0); MEAN CORPUSCULAR HGB CONC 33.2 g/dL (33.0-35.0); MEAN CORPUSCULAR VOLUME 83.3 fL (80.0-100.0); MEAN PLATELET VOLUME 7.5 fL (7.4-11.0); MONOCYTES # (AUTO) 0.4 x10^3/uL (0.3-0.8); MONOCYTES % (AUTO) 5.5 % (0.0-13.0); NEUTROPHILS # (AUTO) 5.6 x10^3/uL (2.2-4.8); NEUTROPHILS % (AUTO) 86.3 % (42.0-75.0); PLATELET COUNT 258 X10^3/uL (150.0-450.0); RED BLOOD COUNT 3.46 X10^6/uL (3.5-5.4); WHITE BLOOD COUNT 6.4 X10^3/uL (3.6-10.0)
[2020-11-01 13:48] LABS: ALBUMIN 2.5 g/dL (3.4-5.0); CALCIUM 8.7 mg/dL (8.5-10.1); CARBON DIOXIDE 27.1 mmol/L (21-32); COR CA(FOR HYPOALB) 9.9 mg/dL (8.5-10.1); CREATININE 1.24 mg/dL (0.55-1.02); TOTAL PROTEIN 7.1 g/dL (6.4-8.2)
[2020-11-01 14:24] LABS: BILIRUBIN,URINE NEGATIVE (NEGATIVE); BLOOD/HEMOGLOBIN,URINE 2+ (NEGATIVE); GLUCOSE, URINE NEGATIVE (NEGATIVE); KETONES,URINE NEGATIVE (NEGATIVE); LEUKOCYTE ESTERASE ,URINE 3+ (NEGATIVE); NITRITES,URINE NEGATIVE (NEGATIVE); PROTEIN,URINE 2+ (NEGATIVE); UROBILINOGEN,URINE 1+ (NORMAL)
[2020-11-01 14:40] LABS: COLOR,URINE YELLOW (YELLOW)
[2020-11-01 14:41] LABS: APPEARANCE,URINE CLOUDY (CLEAR); BACTERIA,URINE 4+ /HPF (NEGATIVE); MUCUS,URINE FEW /HPF (NEGATIVE); SQUAMOUS EPITHELIAL CELL,UR FEW /HPF (NEGATIVE); TRANSITIONAL EPI CELLS,URINE FEW /HPF (NEGATIVE)
--- NOTE | 2020-11-01 15:30 | CT ---
EXAM: CTA CHEST WITH INTRAVENOUS CONTRASTHISTORY: Elevated D-dimer. Shortness of breath. COVID-19 positive.TECHNIQUE: Spiral axial CT images are obtained through the chest with the administration of 75 cc of Omnipaque 350 intravenous contrast. Coronal, sagittal and 3D MIP images are reformatted.DOSIMETRY: Total DLP 246.9 mGycm; CTDI 31.6 mGyCOMPARISON: CTA chest dated January 18, 2020.FINDINGS:CARDIOVASCULAR: There is a tiny nonocclusive intravascular filling defect/PE seen in posterior segmental left lower lobe pulmonary artery, with significant interval improvement of previously seen left lower lobe pulmonary embolic lesions seen; findings in keeping with trace residual nonocclusive left lower lobe PE; no mnuarq/occlusive PE is seen. There is a left anterior chest wall subclavian cardiac pacer with intact pacer wires to the right atrium and right ventricle. There is severe aortic and coronary atherosclerosis. No aortic aneurysm or dissection is seen. There is stable cardiomegaly with four-chamber enlargement. There is interval development of a trace posterior pericardial effusion (measuring up to the 5.7 mm thick).MEDIASTINUM AND SHELIA: There is shotty bilateral hilar and mediastinal lymphadenopathy in keeping with reactive lymphadenopathy. No mass lesion, emphysema, or abnormal fluid collection is seen.LUNGS: There are extensive bilateral patchy groundglass parenchymal infiltrates, especially in the posterior and lower lung valentino, in keeping with acute Covid pneumonia in the appropriate clinical setting; nonspecific finding; DDx includes airspace disease (with filling of alveoli, e.g. with fluid, pus, hemorrhage, or tumor cells) and interstitial lung disease (e.g. interstitial edema, interstitial pneumonia, and interstitial fibrosis). Clinical correlation is advised. There is no lung mass, lung nodule, or endobronchial obstructing lesion seen. No pleural effusion or pneumothorax is evident. There is interval resolution of the previously seen large bilateral pleural effusions and CHF. 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 The visualized bony structures are within normal limits. No axillary lymphadenopathy is noted.UPPER ABDOMEN: Limited views through the upper abdomen demonstrate no gross acute abnormality.IMPRESSION:1. Extensive bilateral patchy groundglass parenchymal infiltrates, especially in the posterior and inferior lung valentino, in keeping with acute Covid pneumonia in the appropriate clinical setting (new finding). Clinical correlation is advised.2. Shotty mediastinal and bilateral hilar lymphadenopathy in keeping with reactive lymphadenopathy.3. Tiny nonocclusive intravascular filling defect/PE seen in posterior segmental left lower lobe pulmonary artery, with significant interval improvement of previously seen left lower lobe pulmonary embolic lesions seen; findings in keeping with trace residual nonocclusive left lower lobe PE; no mnuarq/occlusive PE is seen.4. Severe aortic and coronary atherosclerosis. No aortic aneurysm or dissection is seen.5. Stable cardiomegaly with four-chamber enlargement. Interval development of a trace posterior pericardial effusion (measuring up to the 5.7 mm thick).6. Stable appearance of diffuse bullous emphysematous disease.7. Interval resolution of the previously seen large bilateral pleural effusions, bibasilar compressive atelectasis, and and CHF.8. No lung mass, endobronchial obstructing lesion, pleural effusion, or pneumothorax seen.Electronically signed by: Leonel Moya (Nov 01, 2020 15:28:30)
[2020-11-01] MEDS ORDERED: LOVENOX INJ 80 MG SYR SC ONE ×2 (16:00→16:17)
[2020-11-01] MEDS ORDERED: REGEN-COV VIAL 10 ML, DRUG FILTER EXTENSION SET * 1 EA in NS 100 ML IV 100 ML IV ONE ×2 (16:01)
[2020-11-01] MEDS ORDERED: SOLU-Medrol 125 MG VIAL IVP ONE (16:40)
[2020-11-01] MEDS ORDERED: BENADRYL INJ 50 MG VIAL IVP ONE (16:40)
[2020-11-01] MEDS ORDERED: TYLENOL 325 MG TAB PO ONE ×2 (16:40→16:42)
[2020-11-01] MEDS ORDERED: NS 100 ML IV + SPIKE MINIBAG* 100 ML IV ONE (16:42)
[2020-11-01] MEDS ORDERED: BENADRYL INJ 50 MG VIAL ONE (16:42)
[2020-11-01] MEDS ORDERED: REGEN-COV VIAL ONE (16:42)
[2020-11-01] MEDS ORDERED: SOLU-Medrol 125 MG VIAL ONE (16:43)
[2020-11-01] MEDS ORDERED: ROCEPHIN 1 GRAM IV PREMIX 1 G/50 ML IV.SOLN. IV ONE ×2 (18:44→19:55)
[2020-11-01] MEDS ORDERED: LOVENOX INJ 60 MG SYR SC ONE (20:00)
[2020-11-01] MEDS: ROBITUSSIN DM PO PRN (22:07)
[2020-11-02] MEDS: ROBITUSSIN DM PO PRN ×2 (08:52→21:46)
[2020-11-02] MEDS ORDERED: PERIACTIN TAB 4 MG PO PRN (09:00)
[2020-11-02] MEDS ORDERED: BROVANA IN SCH (09:00)
[2020-11-02] MEDS ORDERED: NS 1000 ML 1,000 ML IV SCH (09:00)
[2020-11-02] MEDS ORDERED: PHARMACY CONSULT - IVERMECTIN XX SCH (09:00)
[2020-11-02] MEDS ORDERED: PHARMACY CONSULT - LOVENOX XX SCH (09:00)
[2020-11-02] MEDS ORDERED: PULMICORT NEB TX 0.5 MG NEB SCH (09:00)
[2020-11-02] MEDS ORDERED: REGEN-COV VIAL 10 ML, DRUG FILTER EXTENSION SET * 1 EA in NS 100 ML IV 100 ML IV ONE ×2 (09:27)
[2020-11-02] MEDS: ASCORBIC ACID INJ MULTI-DOSE VIAL 1,500 MG in NS 100 ML IV 100 ML IV SCH ×3 (10:27→21:44)
[2020-11-02] MEDS: CYTOTEC PO SCH ×3 (10:28→21:48)
[2020-11-02] MEDS: LIPITOR TAB 80 MG PO SCH (10:30)
[2020-11-02] MEDS: ZINC SULFATE PO SCH ×2 (10:30→21:47)
[2020-11-02] MEDS: PEPCID TAB 40 MG PO SCH ×2 (10:30→21:47)
[2020-11-02] MEDS: PROTONIX INJ 40 MG VIAL IVP SCH ×2 (10:30→21:43)
[2020-11-02] MEDS: VITAMIN A PO SCH (10:31)
[2020-11-02] MEDS: ROCEPHIN 1 GRAM IV PREMIX 1 G/50 ML IV.SOLN. IV SCH (10:31)
[2020-11-02] MEDS: IVERMECTIN PO SCH (10:31)
[2020-11-02] MEDS: THIAMINE HCL INJ IVP SCH ×2 (10:31→21:42)
[2020-11-02] MEDS: VITAMIN D (1.25MG) PO SCH (10:32)
[2020-11-02] MEDS: LOVENOX INJ 40 MG SYR SC SCH ×2 (10:32→21:45)
[2020-11-02] MEDS: PULMICORT NEB TX 0.5 MG NEB SCH (19:50)
[2020-11-02] MEDS: BROVANA IN SCH (19:50)
[2020-11-02] MEDS ORDERED: MELATONIN PO SCH (21:00)
[2020-11-03] MEDS: ASCORBIC ACID INJ MULTI-DOSE VIAL 1,500 MG in NS 100 ML IV 100 ML IV SCH ×2 (02:23→08:20)
[2020-11-03] MEDS: CYTOTEC PO SCH (05:06)
[2020-11-03 06:57] LABS: BASOPHILS % (AUTO) 0.5 % (0.2-1.0); EOSINOPHILS # (AUTO) 0.1 x10^3/uL (0.0-0.2); EOSINOPHILS % (AUTO) 1.4 % (0.9-2.9); HEMATOCRIT 26.4 % (36.0-47.0); HEMOGLOBIN 8.9 g/dL (12.0-16.0); LYMPHOCYTES # (AUTO) 0.6 X10^3/uL (1.3-2.9); LYMPHOCYTES % (AUTO) 10.3 % (21.0-51.0); MEAN CORPUSCULAR HEMOGLOBIN 28.2 pg (27.0-34.0); MEAN CORPUSCULAR HGB CONC 33.7 g/dL (33.0-35.0); MEAN CORPUSCULAR VOLUME 83.5 fL (80.0-100.0); MEAN PLATELET VOLUME 7.5 fL (7.4-11.0); MONOCYTES # (AUTO) 0.4 x10^3/uL (0.3-0.8); MONOCYTES % (AUTO) 8.3 % (0.0-13.0); NEUTROPHILS # (AUTO) 4.3 x10^3/uL (2.2-4.8); NEUTROPHILS % (AUTO) 79.5 % (42.0-75.0); PLATELET COUNT 282 X10^3/uL (150.0-450.0); RED BLOOD COUNT 3.16 X10^6/uL (3.5-5.4); WHITE BLOOD COUNT 5.4 X10^3/uL (3.6-10.0)
[2020-11-03 07:43] LABS: ALANINE AMINOTRANSFERASE 62 Units/L (12-78); ALBUMIN 2.4 g/dL (3.4-5.0); ALKALINE PHOSPHATASE 72 Units/L (46-116); ASPARTATE AMINO TRANSFERASE 72 Units/L (15-37); BLOOD UREA NITROGEN 20 mg/dL (7-18); CALCIUM 8.9 mg/dL (8.5-10.1); CARBON DIOXIDE 26.1 mmol/L (21-32); CHLORIDE 105 mmol/L (98-107); COR CA(FOR HYPOALB) 10.2 mg/dL (8.5-10.1); SODIUM 140 mmol/L (136-145); eGFR NON BLACK RACES 51 (>60)
[2020-11-03] MEDS: IVERMECTIN PO SCH (08:23)
[2020-11-03] MEDS: LIPITOR TAB 80 MG PO SCH (08:24)
[2020-11-03] MEDS: PEPCID TAB 40 MG PO SCH (08:24)
[2020-11-03] MEDS: LOVENOX INJ 40 MG SYR SC SCH (08:24)
[2020-11-03] MEDS: THIAMINE HCL INJ IVP SCH (08:25)
[2020-11-03] MEDS: VITAMIN D (1.25MG) PO SCH (08:25)
[2020-11-03] MEDS: ZINC SULFATE PO SCH (08:25)
[2020-11-03] MEDS: PROTONIX INJ 40 MG VIAL IVP SCH (08:25)
[2020-11-03] MEDS: VITAMIN A PO SCH (08:26)
[2020-11-03] MEDS: ROCEPHIN 1 GRAM IV PREMIX 1 G/50 ML IV.SOLN. IV SCH (09:36)
[2020-11-03] MEDS: BROVANA IN SCH (09:40)
[2020-11-03] MEDS: PULMICORT NEB TX 0.5 MG NEB SCH (09:40)
[2020-11-03 10:07] VITALS: BP 193/93
[2020-11-04] MEDS ORDERED: VITAMIN A PO SCH (09:00)
[2020-11-04] MEDS ORDERED: VITAMIN D3 125 mcg (5,000 UNITS) PO SCH (09:00)
== END 2020-11-03 11:55 | disposition home or self-care (01) ==
LOC: ER 11:30 → OBS 11:30 → MED/SURG 18:45
PROVIDERS: ADMIT Obstetrics & Gynecology Obstetrics; ATTEND Internal Medicine
DX: I25.10 Atherosclerotic heart disease of native coronary artery without angina pectoris; R07.89 Other chest pain; I10 Essential (primary) hypertension; R04.2 Hemoptysis; R06.02 Shortness of breath; R79.82 Elevated C-reactive protein (CRP); R79.89 Other specified abnormal findings of blood chemistry; N39.0 Urinary tract infection, site not specified; Z95.0 Presence of cardiac pacemaker; B96.29 Other Escherichia coli [E. coli] as the cause of diseases classified elsewhere; U07.1 COVID-19